=== PATIENT | male | born 1955 ===

== ENCOUNTER 2017-05-26 16:26 | Inpatient (IN) | payer MEDICAID, OTHER ==
[2017-05-26] MEDS ORDERED: Sodium Chloride 0.9% 2,000 ML IV STA (17:20)
[2017-05-26] MEDS ORDERED: Morphine 4 MG/ML VIAL IVP STA (17:22)
--- NOTE | 2017-05-26 17:22 | ED PDOC ---
HPI: Abdomen Time Seen by Provider: 05/26/17 17:21 Chief Complaint (Nursing): Abdominal Pain Chief Complaint (Provider): ABDOMINAL PAIN History Per: Patient (61 Y/O MALE RECENT IMMIGRATION FROM [place] HERE WITH ABDOMINAL PAIN INTERMITTENT IN PAST HERE CONTINUOUS SINCE LAST NIGHT 2AM. NOTE PAIN OCCURRED SUDDENLY AND ASSOCIATED WITH VOMITING. DENIES ANY DIARRHEA/FEVERS /CHILLS. NO H/O ABD SX.) Past Medical History Reviewed: Historical Data, Nursing Documentation, Vital Signs Vital Signs: Last Vital Signs Temp 98.2 F 05/26/17 16:36 Pulse 63 05/26/17 17:47 Resp 18 05/26/17 16:36 BP 155/84 H 05/26/17 16:36 Pulse Ox 97 05/26/17 19:32 - Surgical History Surgical History: No Surg Hx - Family History Family History: States: No Known Family Hx - Social History Current smoker - smoking cessation education provided: No Ex-Smoker (has not smoked in the last 12 months): No Alcohol: None Drugs: Denies - Immunization History Hx Tetanus Toxoid Vaccination: No Hx Influenza Vaccination: No Hx Pneumococcal Vaccination: No - Allergies Allergies/Adverse Reactions: Allergies Allergy/AdvReac Type Severity Reaction Status Date / Time No Known Allergies Allergy Verified 05/26/17 17:01 Review of Systems ROS Statement: Except As Marked, All Systems Reviewed And Found Negative Gastrointestinal: Positive for: Vomiting, Abdominal Pain Physical Exam - Reviewed Nursing Documentation Reviewed: Yes Vital Signs Reviewed: Yes - Physical Exam Appears: Positive for: Well, Non-toxic, No Acute Distress Head Exam: Positive for: ATRAUMATIC, NORMAL INSPECTION, NORMOCEPHALIC Skin: Positive for: Normal Color, Warm, DRY Eye Exam: Positive for: EOMI, Normal appearance, PERRL ENT: Positive for: Normal ENT Inspection Neck: Positive for: Normal, Painless ROM Cardiovascular/Chest: Positive for: Regular Rate, Rhythm Respiratory: Positive for: CNT, Normal Breath Sounds Gastrointestinal/Abdominal: Positive for: Normal Exam, Bowel Sounds, Soft, Tenderness (EPIGASTRIC/RUQ TENDERNESS.) Back: Positive for: Normal Inspection Extremity: Positive for: Normal ROM Neurologic/Psych: Positive for: Alert, Oriented - Laboratory Results Result Diagrams: 05/26/17 17:52 05/26/17 17:52 - ECG O2 Sat by Pulse Oximetry: 97 - Progress ED Course And Treament: NS 1 LITER 500 ML PER HOUR X 2 LITERS PEPCID 20 MG IV X 1 DOSE ZOFRAN 4 MG ODT MORPHINE 4 MG IV X 1 DOSE WBC 19 ELEVATED US GALLBLADDER: IMPRESSION: 1. Hepatic steatosis, mild hepatomegaly 2. Multiple gallstones Thank you for allowing us to participate in the care of your patient. Dictated and Authenticated by: Axel Dumont MD PATIENT RE-EXAMINED AT 18:36PM. MODERATE PERSISTENT PAIN EPIGASTRIC/RUQ REGION. BC X 2; VENOUS BLOOD GAS; ZOSYN 3.375GM ORDERED FOR PRESUMPTIVE CHOLECYSTITIS. DILAUDID 1 MG IVX 1 DOSE FOR PAIN MANAGMENT; CT ABD/PELVIS ORDERED. SURG RESIDENT PAGED 18:37PM D/W DR. COX 18:56PM D/W SURG RESIDENT 19:03PM d/w dr ochoa hospitalist. Disposition - Clinical Impression Clinical Impression: RUQ abdominal pain, Gallstone, Leukocytosis - Patient ED Disposition Is Patient to be Admitted: Yes - Disposition Disposition Time: 19:30 Condition: FAIR Forms: [facility] (Mauritanian)
[2017-05-26] MEDS ORDERED: Morphine 4 MG/ML VIAL ONE (17:34)
[2017-05-26 17:48] LABS: URINE AMORPHOUS SEDIMENT RARE /ul (<OCC); URINE BILIRUBIN NEGATIVE (NEGATIVE); URINE BLOOD SMALL (NEGATIVE); URINE CLARITY SLIGHTY-CLOUDY (Clear); URINE COLOR YELLOW (YELLOW); URINE GLUCOSE (UA) 50 mg/dL (Normal); URINE LEUKOCYTE ESTERASE NEG Leu/uL (Negative); URINE PROTEIN 30 mg/dL (NEGATIVE); URINE UROBILINOGEN 0.2-1.0 mg/dL (0.2-1.0)
[2017-05-26 17:56] LABS: BASO # 0.1 K/uL (0.0-0.2); BASO % 0.4 % (0.0-2.0); HEMOGLOBIN 14.6 g/dL (12.0-18.0); LYMPH # 1.3 K/uL (1.0-4.3); LYMPH % 6.8 % (20.0-40.0); MEAN CELL VOLUME 91.6 fl (80.0-94.0); MEAN CORPUSCULAR HEMOGLOBIN 31.6 pg (27.0-31.0); MEAN CORPUSCULAR HGB CONC 34.5 g/dL (33.0-37.0); MEAN PLATELET VOLUME 7.9 fl (7.2-11.7); MONO # 0.6 K/uL (0.0-0.8); MONO % 3.1 % (0.0-10.0); NEUT # 17.6 K/uL (1.8-7.0); NEUT % 89.7 % (50.0-75.0); PLATELET COUNT 356 K/uL (130-400); RBC 4.61 Mil/uL (4.40-5.90); RED CELL DISTRIBUTION WIDTH 13.8 % (11.5-14.5); WHITE BLOOD COUNT 19.6 K/uL (4.8-10.8)
[2017-05-26 18:25] LABS: CALCIUM 9.3 mg/dL (8.4-10.2); GFR AFRICAN-AMERICAN > 60; GFR NON-AFRICAN AMERICAN > 60; LIPASE 75 U/L (23-300)
[2017-05-26] MEDS ORDERED: Piperacillin/Tazobact 3.375 GM in Sodium Chloride 0.9% 100 ML IVPB STA (18:31)
[2017-05-26] MEDS ORDERED: Piperacillin/Tazobact 3.375 gm Inj IVPB ONE (18:36)
[2017-05-26 18:45] LABS: ALB/GLOB RATIO 1.1 (1.0-2.1); ALBUMIN 4.7 g/dL (3.5-5.0); ALT/SGPT 7 U/L (21-72); AST/SGOT 68 U/L (17-59); BLOOD UREA NITROGEN 11 mg/dl (9-20)
[2017-05-26 19:11] LABS: VENOUS BLOOD GAS BASE EXCESS -3.5 mmol/L (0.0-2.0); VENOUS BLOOD GAS PCO2 44 mmHg (40-60); VENOUS BLOOD GAS PO2 23 mm/Hg (30-55); VENOUS BLOOD PH 7.32 (7.32-7.43)
[2017-05-26] MEDS ORDERED: Iohexol 300 100 ML IJ ONE (19:39)
[2017-05-26] MEDS ORDERED: Sodium Chloride 0.9% 100 ML ONE (19:39)
--- NOTE | 2017-05-26 19:47 | CP.PCM.HP ---
History of Present Illness - History of Present Illness History of Present Illness: PMD: None Chief complaint: Abdominal pain The patient was seen and examined in the ED HPI: This is a 61 years male recently emigrated from [place] , with no significant past medical hx, comes 12 - 14 hours of continuous, sharp epigastric pain which now includes the periumbilical region, no radiation to back, chest nor pelvic region. The pain is associated with nausea, vomiting of bilious fluid. Not relieved with home meds and zantac. No hx of previous Abdominal pain, no fever, chills, diarrhea, dysuria. He does refer urinary frequency. The Pain was relieved after the second dose of Analgesic in the ED. PMH: Denies PSH: No Surg Hx SH: No illegal drug use; No Alcohol; never smoked; lives with family FH: States: No Known Family Hx Allergies: NKDA Medication: Denies Present on Admission - Present on Admission Any Indicators Present on Admission: No History of DVT/PE: No History of Uncontrolled Diabetes: No Urinary Catheter: No Decubitus Ulcer Present: No Review of Systems - Constitutional Constitutional: Anorexia. absent: Chills, Fever, Headache - EENT Eyes: Requires Corrective Lenses. absent: Floaters, Photophobia, Sees Flashes Ears: absent: Decreased Hearing, Ear Discharge, Ear Pain, Tinnitus Nose/Mouth/Throat: absent: Epistaxis, Nasal Congestion, Nasal Discharge - Cardiovascular Cardiovascular: absent: Chest Pain, Dyspnea, Edema - Respiratory Respiratory: absent: Cough, Dyspnea, Wheezing, Stridor, Chest Congestion - Gastrointestinal Gastrointestinal: Abdominal Pain, Constipation, Nausea, Vomiting. absent: Diarrhea Additional comments: Epigastric and periumbilical pain. - Genitourinary Genitourinary: Urinary Frequency. absent: Dysuria, Flank Pain, Hematuria - Musculoskeletal Musculoskeletal: absent: Arthralgias, Muscle Weakness, Myalgias - Integumentary Integumentary: absent: Pruritus, Rash, Skin Ulcer, Sores, Striae, Swelling - Neurological Neurological: Dizziness. absent: Confusion, Focal Weakness, Headaches, Weakness - Psychiatric Psychiatric: absent: Anxiety, Depression, Panic Attacks - Endocrine Endocrine: absent: Palpitations, Polydipsia, Polyphagia, Polyuria - Hematologic/Lymphatic Hematologic: absent: Easy Bleeding, Easy Bruising Past Patient History - Past Medical History & Family History Past Medical History?: No - Past Social History Smoking Status: Never Smoked Chewing Tobacco Use: No Cigar Use: No Alcohol: None Drugs: Denies Home Situation {Lives}: With Family - CARDIAC Hx Cardiac Disorders: No - PULMONARY Hx Respiratory Disorders: No - NEUROLOGICAL Hx Neurological Disorder: No - HEENT Hx HEENT Problems: No - RENAL Hx Chronic Kidney Disease: No - ENDOCRINE/METABOLIC Hx Endocrine Disorders: No - HEMATOLOGICAL/ONCOLOGICAL Hx Blood Disorders: No - INTEGUMENTARY Hx Dermatological Problems: No - MUSCULOSKELETAL/RHEUMATOLOGICAL Hx Musculoskeletal Disorders: No - GASTROINTESTINAL Hx Gastrointestinal Disorders: No Hx Hemorrhoids: No - PSYCHIATRIC Hx Psychophysiologic Disorder: No Hx Substance Use: No - SURGICAL HISTORY Hx Surgeries: No - ANESTHESIA Hx Anesthesia: No Hx Anesthesia Reactions: No Hx Malignant Hyperthermia: No Meds Allergies/Adverse Reactions: Allergies Allergy/AdvReac Type Severity Reaction Status Date / Time No Known Allergies Allergy Verified 05/26/17 17:01 Physical Exam - Constitutional Appears: No Acute Distress - Head Exam Head Exam: ATRAUMATIC, NORMAL INSPECTION, NORMOCEPHALIC - Eye Exam Eye Exam: EOMI, Normal appearance Pupil Exam: NORMAL ACCOMODATION, PERRL - ENT Exam ENT Exam: Mucous Membranes Moist, Normal Exam, Normal External Ear Exam, Normal Oropharynx - Neck Exam Neck exam: Positive for: Full Rom, Normal Inspection. Negative for: Lymphadenopathy, Tenderness - Respiratory Exam Respiratory Exam: Clear to Auscultation Bilateral. absent: Rales, Rhonchi, Wheezes, Stridor - Cardiovascular Exam Cardiovascular Exam: REGULAR RHYTHM, RRR. absent: Gallop, +S1, +S2 - GI/Abdominal Exam Additional comments: Flat, soft, decreased bowel sound, pain on deep palpitation at the epigastrium ans RUQ, No rebound, no guarding - Rectal Exam Rectal Exam: Deferred - Extremities Exam Extremities exam: Positive for: full ROM, normal inspection. Negative for: calf tenderness, pedal edema - Back Exam Back exam: NORMAL INSPECTION. absent: CVA tenderness (L), CVA tenderness (R) - Neurological Exam Neurological exam: Alert, CN II-XII Intact, Oriented x3, Reflexes Normal - Psychiatric Exam Psychiatric exam: Normal Affect, Normal Mood - Skin Skin Exam: Dry, Intact, Normal Color, Warm Results - Vital Signs Recent Vital Signs: Last Vital Signs Temp 98.2 F 05/26/17 16:36 Pulse 63 05/26/17 17:47 Resp 18 05/26/17 16:36 BP 155/84 H 05/26/17 16:36 Pulse Ox 97 05/26/17 19:45 - Labs Result Diagrams: 05/26/17 17:52 05/26/17 17:52 Labs: Laboratory Results - last 24 hr 05/26/17 05/26/17 05/26/17 17:25 17:52 17:52 WBC 19.6 H RBC 4.61 Hgb 14.6 Hct 42.3 MCV 91.6 MCH 31.6 H MCHC 34.5 RDW 13.8 Plt Count 356 MPV 7.9 Neut % (Auto) 89.7 H Lymph % (Auto) 6.8 L [place] % (Auto) 3.1 Eos % (Auto) 0.0 Baso % (Auto) 0.4 Neut # (Auto) 17.6 H Lymph # (Auto) 1.3 [place] # (Auto) 0.6 Eos # (Auto) 0.0 Baso # (Auto) 0.1 pO2 VBG pH VBG pCO2 VBG HCO3 VBG Total CO2 VBG O2 Sat (Calc) VBG Base Excess VBG Potassium Glucose Lactate FiO2 Sodium 137 Potassium 4.5 Chloride 99 Carbon Dioxide 22 Anion Gap 21 H BUN 11 Creatinine 0.5 L Est GFR ( Amer) > 60 Est GFR (Non-Af Amer) > 60 Random Glucose 136 H Calcium 9.3 Total Bilirubin 1.3 AST 68 H ALT 7 L Alkaline Phosphatase 147 H Troponin I 0.0150 Total Protein 9.0 H Albumin 4.7 Globulin 4.3 H Albumin/Globulin Ratio 1.1 Lipase 75 Venous Blood Potassium Urine Color Yellow Urine Clarity Slighty-cloudy Urine pH 6.0 Ur Specific [place] 1.031 H Urine Protein 30 Urine Glucose (UA) 50 Urine Ketones Negative Urine Blood Small Urine Nitrate Negative Urine Bilirubin Negative Urine Urobilinogen 0.2-1.0 Ur Leukocyte Esterase Neg Urine RBC (Auto) 5 H Urine Microscopic WBC 1 Amorphous Sediment Rare H 05/26/17 19:00 WBC RBC Hgb Hct MCV MCH MCHC RDW Plt Count MPV Neut % (Auto) Lymph % (Auto) [place] % (Auto) Eos % (Auto) Baso % (Auto) Neut # (Auto) Lymph # (Auto) [place] # (Auto) Eos # (Auto) Baso # (Auto) pO2 23 L VBG pH 7.32 VBG pCO2 44 VBG HCO3 20.5 VBG Total CO2 24.1 VBG O2 Sat (Calc) 49.0 VBG Base Excess -3.5 L VBG Potassium 3.5 L Glucose 131 H Lactate 1.9 FiO2 21.0 Sodium 133.0 Potassium Chloride 102.0 Carbon Dioxide Anion Gap BUN Creatinine Est GFR ( Amer) Est GFR (Non-Af Amer) Random Glucose Calcium Total Bilirubin AST ALT Alkaline Phosphatase Troponin I Total Protein Albumin Globulin Albumin/Globulin Ratio Lipase Venous Blood Potassium 3.5 L Urine Color Urine Clarity Urine pH Ur Specific [place] Urine Protein Urine Glucose (UA) Urine Ketones Urine Blood Urine Nitrate Urine Bilirubin Urine Urobilinogen Ur Leukocyte Esterase Urine RBC (Auto) Urine Microscopic WBC Amorphous Sediment - Impressions Impression: NSR 63/min No sign of ischemia - Imaging and Cardiology US - abdomen Status: Report reviewed by me Additional comment: EXAM: US Abdomen Limited, Right Upper Quadrant FINDINGS: Liver: Increased echogenicity is seen consistent steatosis. No mass. No intrahepatic bile duct dilation. Liver span 17.1 cm finding corresponds to mild hepatomegaly Gallbladder: Multiple gallstones present . Gall bladder wall measures 2 mm Common bile duct: Unremarkable as visualized. No stones. 5 mm Pancreas: Unremarkable as visualized. Right kidney: Unremarkable. No stones. No solid mass. No hydronephrosis. The RIGHT kidney measures 10.7 cm x 4.6 x 5 cm IMPRESSION: 1. Hepatic steatosis, mild hepatomegaly 2. Multiple gallstones CT scan - abdomen Status: Report reviewed by me Additional comment: EXAM: CT Abdomen And Pelvis With Intravenous Contrast EXAM DATE/TIME: 05/26/2017 FINDINGS: Lower thorax: Mild bilateral lower lobe atelectasis and/or parenchymal scarring. ABDOMEN: Liver: Mild, diffuse fatty infiltration of the liver as was also mentioned in the comparison ultrasound report. No hepatomegaly. Gallbladder and bile ducts: The gallbladder is moderately distended. Mild fat stranding around the gallbladder. The multiple gallstones mentioned in the comparison ultrasound report are not radiopaque and thus are not visualized on this examination. The common bile duct measures 6 mm in diameter which is at the upper limit of normal. Pancreas: Normal appearance. No peripancreatic fat stranding or fluid. No pancreatic ductal dilation. Spleen: Normal appearance. Adrenals: Normal appearance. Kidneys and ureters: Normal appearance. Stomach and bowel: There is a single mildly dilated loop of small bowel in the anterior mid left abdomen. No other evident acute abnormality of the small bowel. Moderate amount of stool in the colon. Mild colonic diverticulosis without evidence of acute diverticulitis. Appendix: The proximal appendix is filled with air and fecal like material and is dilated up to 12 mm in diameter. The appendix gradually tapers in caliber distally, measuring 5 mm in diameter near the appendiceal tip. No periappendiceal inflammatory changes. PELVIS: Bladder: The bladder is moderately distended but otherwise normal in appearance. Reproductive: Mildly enlarged prostate gland. ABDOMEN and PELVIS: Intraperitoneal space: No free intraperitoneal fluid or air. Bones/joints: No acute findings. Soft tissues: Small, fat-containing left inguinal hernia with no evident associated complications. Vasculature: No acute findings. No abdominal aortic aneurysm. Lymph nodes: No enlarged abdominal or pelvic lymph nodes by CT criteria. IMPRESSION: 1. There is mild fat stranding around the gallbladder which is moderately distended. In conjunction with the gallstones seen on the comparison ultrasound, these findings are suspicious for acute cholecystitis. If clinically warranted, further evaluation could be obtained with a nuclear medicine HIDA scan. 2. The proximal appendix is dilated up to 12 mm in diameter but is filled with air and fecal like material. The distal appendix is normal in caliber. No periappendiceal inflammatory changes. These findings are equivocal for acute appendicitis as this appearance could be seen with a normal appendix or with early acute appendicitis. 3. A single mildly dilated loop of small bowel in the anterior mid left abdomen may represent peristalsis. A developing small bowel obstruction is less likely but cannot be excluded. 4. Mild, diffuse fatty infiltration of the liver. No hepatomegaly. 5. Non-acute findings as described above. Assessment & Plan - Assessment and Plan (Free Text) Assessment: #. Acute Choldcystitis #. Cholelithiasis #. Leukocytosis Plan: 61 years male comes 12 - 14 hours of continuous, sharp epigastric pain which now includes the periumbilical region, no radiation to back, chest nor pelvic region, associated with nausea, vomiting of bilious fluid. No hx of previous Abdominal pain, no fever, chills, diarrhea, dysuria. #. Acute Choldcystitis with Cholelithiasis and abdominal pain. CT Abdomen IMPRESSION: 1. There is mild fat stranding around the gallbladder which is moderately distended. In conjunction with the gallstones seen on the comparison ultrasound, these findings are suspicious for acute cholecystitis. - Consult Dr Cheng Surgery - NPO - Pain management with Morphine IVP - Zosyn IVPB Q6H - Zofran for nausea and vomits - IV fluids - No Obvious need for MRCP #. Leukocytosis due to the Cholecystitis - Follow WBC #. Stress Ulcer Prophylaxis with Pepcid #. DVT prophylaxis with SCD #. Code Status: Full With no cardiac nor pulmonary hx , this patient has mild to moderate cardiac risk for surgery. He is medically cleared for surgery with generalized anesthesia. - Date & Time Date: 05/26/17 Time: 19:47
[2017-05-26 19:54] LABS: LYMPHOCYTE 3 % (20-50); MONOCYTE 3 % (0-10); NEUTROPHIL 91 % (42-75); PLATELET ESTIMATE NORMAL (NORMAL); REACTIVE LYMPHOCYTES 3 % (0-0); TOTAL CELLS COUNTED 100
[2017-05-26 19:55] LABS: HYPOCHROMIC SLIGHT
--- NOTE | 2017-05-26 20:20 | CP.PCM.CON ---
History of Present Illness - History of Present Illness History of Present Illness: SURGERY CONSULT NOTE FOR DR. 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 Patient has never had this type of pain before. He recently travelled to [place]. Pain is associated with nausea and vomiting. He has bilious emesis. He denies fevers, chill or change in bowel function. Although pain is mostly in the epigastric region he does have mild tenderness diffusely. PMH: denies PSH: denies Social: denies tobacco, alcohol and illicit drugs Allergies: denies Past Patient History - Past Social History Alcohol: None Drugs: Denies - PSYCHIATRIC Hx Substance Use: No - SURGICAL HISTORY Hx Surgeries: No - ANESTHESIA Hx Anesthesia: No Hx Anesthesia Reactions: No Hx Malignant Hyperthermia: No Meds Allergies/Adverse Reactions: Allergies Allergy/AdvReac Type Severity Reaction Status Date / Time No Known Allergies Allergy Verified 05/26/17 17:01 Physical Exam - Constitutional Appears: Well, Non-toxic, No Acute Distress - ENT Exam ENT Exam: Mucous Membranes Moist - Respiratory Exam Respiratory Exam: Clear to Auscultation Bilateral, NORMAL BREATHING PATTERN - Cardiovascular Exam Cardiovascular Exam: REGULAR RHYTHM, +S1, +S2 - GI/Abdominal Exam GI & Abdominal Exam: Firm, Tenderness (diffusely tender). absent: Distended, Guarding, Rebound, Rigid, Soft - Extremities Exam Extremities exam: Negative for: pedal edema, tenderness - Neurological Exam Neurological exam: Alert, Oriented x3 - Psychiatric Exam Psychiatric exam: Normal Affect, Normal Mood - Skin Skin Exam: Dry, Intact, Normal Color, Warm Results - Vital Signs Recent Vital Signs: Last Vital Signs Temp 98.2 F 05/26/17 16:36 Pulse 63 05/26/17 17:47 Resp 18 05/26/17 16:36 BP 155/84 H 05/26/17 16:36 Pulse Ox 97 05/26/17 19:45 - Labs Result Diagrams: 05/26/17 17:52 05/26/17 17:52 Labs: Laboratory Results - last 24 hr 05/26/17 05/26/17 05/26/17 17:25 17:52 17:52 WBC 19.6 H RBC 4.61 Hgb 14.6 Hct 42.3 MCV 91.6 MCH 31.6 H MCHC 34.5 RDW 13.8 Plt Count 356 MPV 7.9 Neut % (Auto) 89.7 H Lymph % (Auto) 6.8 L [place] % (Auto) 3.1 Eos % (Auto) 0.0 Baso % (Auto) 0.4 Neut # (Auto) 17.6 H Lymph # (Auto) 1.3 [place] # (Auto) 0.6 Eos # (Auto) 0.0 Baso # (Auto) 0.1 Neutrophils % (Manual) 91 H Lymphocytes % (Manual) 3 L Reactive Lymphs % 3 H Monocytes % (Manual) 3 Platelet Estimate Normal Hypochromasia (manual) Slight Macrocytosis (manual) Slight pO2 VBG pH VBG pCO2 VBG HCO3 VBG Total CO2 VBG O2 Sat (Calc) VBG Base Excess VBG Potassium Glucose Lactate FiO2 Sodium 137 Potassium 4.5 Chloride 99 Carbon Dioxide 22 Anion Gap 21 H BUN 11 Creatinine 0.5 L Est GFR ( Amer) > 60 Est GFR (Non-Af Amer) > 60 Random Glucose 136 H Calcium 9.3 Total Bilirubin 1.3 AST 68 H ALT 7 L Alkaline Phosphatase 147 H Troponin I 0.0150 Total Protein 9.0 H Albumin 4.7 Globulin 4.3 H Albumin/Globulin Ratio 1.1 Lipase 75 Venous Blood Potassium Urine Color Yellow Urine Clarity Slighty-cloudy Urine pH 6.0 Ur Specific [place] 1.031 H Urine Protein 30 Urine Glucose (UA) 50 Urine Ketones Negative Urine Blood Small Urine Nitrate Negative Urine Bilirubin Negative Urine Urobilinogen 0.2-1.0 Ur Leukocyte Esterase Neg Urine RBC (Auto) 5 H Urine Microscopic WBC 1 Amorphous Sediment Rare H 05/26/17 19:00 WBC RBC Hgb Hct MCV MCH MCHC RDW Plt Count MPV Neut % (Auto) Lymph % (Auto) [place] % (Auto) Eos % (Auto) Baso % (Auto) Neut # (Auto) Lymph # (Auto) [place] # (Auto) Eos # (Auto) Baso # (Auto) Neutrophils % (Manual) Lymphocytes % (Manual) Reactive Lymphs % Monocytes % (Manual) Platelet Estimate Hypochromasia (manual) Macrocytosis (manual) pO2 23 L VBG pH 7.32 VBG pCO2 44 VBG HCO3 20.5 VBG Total CO2 24.1 VBG O2 Sat (Calc) 49.0 VBG Base Excess -3.5 L VBG Potassium 3.5 L Glucose 131 H Lactate 1.9 FiO2 21.0 Sodium 133.0 Potassium Chloride 102.0 Carbon Dioxide Anion Gap BUN Creatinine Est GFR ( Amer) Est GFR (Non-Af Amer) Random Glucose Calcium Total Bilirubin AST ALT Alkaline Phosphatase Troponin I Total Protein Albumin Globulin Albumin/Globulin Ratio Lipase Venous Blood Potassium 3.5 L Urine Color Urine Clarity Urine pH Ur Specific [place] Urine Protein Urine Glucose (UA) Urine Ketones Urine Blood Urine Nitrate Urine Bilirubin Urine Urobilinogen Ur Leukocyte Esterase Urine RBC (Auto) Urine Microscopic WBC Amorphous Sediment Assessment & Plan - Assessment and Plan (Free Text) Assessment: 61F with chole[address]: inflamed GB and dilated appendix with air/fecal material in lumen Plan: - NPO, IVF, abx - Pain control - anti-emetics Further recs discuss with Dr. Prosper Rutledge, PGY2
[2017-05-26] MEDS ORDERED: Morphine 4 MG/ML VIAL IVP PRN (20:33)
[2017-05-27] MEDS ORDERED: Piperacillin/Tazobact 3.375 GM in Sodium Chloride 0.9% 100 ML IVPB SCH (04:00)
[2017-05-27] MEDS: Piperacillin/Tazobact 3.375 GM in Sodium Chloride 0.9% 100 ML IVPB SCH ×4 (04:09→21:41)
[2017-05-27] MEDS: Morphine 4 MG/ML VIAL IVP PRN (06:09)
[2017-05-27] MEDS: Sodium Chloride 0.9% 1,000 ML IV SCH ×2 (06:54→17:56)
[2017-05-27 06:59] LABS: BASO # 0.1 K/uL (0.0-0.2); BASO % 0.4 % (0.0-2.0); EOS % 0.2 % (0.0-4.0); LYMPH # 1.2 K/uL (1.0-4.3); LYMPH % 6.4 % (20.0-40.0); MEAN CELL VOLUME 92.2 fl (80.0-94.0); MEAN CORPUSCULAR HEMOGLOBIN 30.9 pg (27.0-31.0); MEAN CORPUSCULAR HGB CONC 33.5 g/dL (33.0-37.0); MEAN PLATELET VOLUME 7.8 fl (7.2-11.7); MONO % 5.4 % (0.0-10.0); NEUT % 87.6 % (50.0-75.0); RBC 4.52 Mil/uL (4.40-5.90); RED CELL DISTRIBUTION WIDTH 13.7 % (11.5-14.5); WHITE BLOOD COUNT 18.3 K/uL (4.8-10.8)
[2017-05-27 07:12] LABS: ALB/GLOB RATIO 1.1 (1.0-2.1); ALBUMIN 4.1 g/dL (3.5-5.0); ALT/SGPT 160 U/L (21-72); AST/SGOT 153 U/L (17-59); BLOOD UREA NITROGEN 8 mg/dl (9-20); GFR AFRICAN-AMERICAN > 60; GFR NON-AFRICAN AMERICAN > 60
--- NOTE | 2017-05-27 11:29 | CT ---
EXAMINATION PERFORMED: CT ABDOMEN AND PELVIS. CLINICAL HISTORY: Evaluate for acute cholecystitis. COMPARISON EXAMINATIONS: May 26, 2017. Abdominal ultrasound. Summary of findings on the comparison examination: Multiple gallstones TECHNIQUE: 2.5 mm axial acquisition and display. Coronal and sagittal reconstructions. Coronal and sagittal reconstructed images. Contrast: 91 cc Omnipaque 300 poor Dose report (mGy-cm): 5238.12. All CT scans at this facility use one or more dose reduction techniques: Automated exposure control; mA/kv adjustment per patient size (including targeted exams where, for example, dose is matched to indication; for example head) or iterative reconstruction technique. FINDINGS: Lower thorax: No significant findings. Liver: Hepatic steatosis. No focal masses. No intrahepatic bile duct dilatation or perihepatic ascites. . Gallbladder: Unremarkable. Gallstones identified on recent ultrasound are not readily apparent on the current study. Pancreas: Unremarkable Spleen: Unremarkable Kidneys: No evidence of mass, calculus disease, hydronephrosis. Stomach small bowel and colon: Diverticulosis without an acute inflammatory component or other associated pathologic process. Appendix: No abnormalities to suggest acute appendicitis. No right lower quadrant inflammatory processes identified. Reproductive: Normal Peritoneal cavity: No significant fluid, drainable collection, free air. Lymphadenopathy: None Osseous structures: No acute findings. Other: None. IMPRESSION: No acute findings related to/accounting for the clinical presentation. Additional benign and/or incidental findings described above.
--- NOTE | 2017-05-27 11:53 | US ---
HISTORY: R/O BILIARY COLIC COMPARISON: None. TECHNIQUE: Sonographic evaluation of the right upper quadrant of the abdomen. FINDINGS: LIVER: Measures 17.2 cm in length. Normal echogenicity of the liver parenchyma. No mass. No intrahepatic bile duct dilatation. GALLBLADDER: Cholelithiasis. Negative study for gallbladder wall thickening, pericholecystic fluid, sonographic Pan's sign. COMMON BILE DUCT: Measures 5.1 mm. No stones. No dilatation. PANCREAS: Unremarkable as visualized. No mass. No ductal dilatation. RIGHT KIDNEY: Measures 4.6 x 10.7 cm in length. Normal echogenicity. No calculus, mass, or hydronephrosis. AORTA: No aneurysmal dilatation. IVC: Unremarkable. OTHER FINDINGS: None . IMPRESSION: Cholelithiasis. No sonographic evidence of acute cholecystitis. Concordant results (preliminary interpretation) provided by [facility]. Procedure Completed: 18:19 Preliminary ([facility]) Report: Dictated and Authenticated: 19:22 Final Interpretation: 10:52 May 27, 2017.
[2017-05-27] MEDS ORDERED: Gadodiamide 287 MG/ML VIAL (15ML) IV ONE (15:33)
[2017-05-27] MEDS ORDERED: Sodium Chloride 0.9% 100 ML ONE (15:34)
--- NOTE | 2017-05-27 15:46 | CP.PCM.CON ---
<Eliazar Ballard - Last Filed: 05/27/17 15:37> History of Present Illness - History of Present Illness History of Present Illness: PGY5 GI Fellow Consult Note Patient is a 61yo male with no significant PMHx who presented to the ED with one day of abdominal pain. Patient developed sudden onset severe epigastric pain around midnight on Saturday. Pain seemed to radiate to both flanks and was not relieved with OTC Zantac. He developed shaking chills, became nauseated, vomiting multiple times which prompted him to seek evaluation in the ED. He denies any history of medical issues or hospitalizations prior to this and specifically, has no history of gallstones or hepatobiliary disease. Currently, pain persists and he feels febrile. Symptoms have improved somewhat with analgesia. PMHx: Discussed with patient and he denies any past medical history PSHx: Discussed with patient and he denies any past surgical history FHx: Discussed with patient and he denies any significant family history Social: Denies tobacco, EtOH or illicit drug use Endo: Denies prior endoscopic evaluation 12 system ROS performed and negative except where stated above. Past Patient History - Past Medical History & Family History Past Medical History?: No - Past Social History Smoking Status: Never Smoked - CARDIAC Hx Cardiac Disorders: No - PULMONARY Hx Respiratory Disorders: No - NEUROLOGICAL Hx Neurological Disorder: No - HEENT Hx HEENT Problems: No - RENAL Hx Chronic Kidney Disease: No - ENDOCRINE/METABOLIC Hx Endocrine Disorders: No - HEMATOLOGICAL/ONCOLOGICAL Hx Blood Disorders: No - INTEGUMENTARY Hx Dermatological Problems: No - MUSCULOSKELETAL/RHEUMATOLOGICAL Hx Musculoskeletal Disorders: No Hx Falls: No - GASTROINTESTINAL Hx Gastrointestinal Disorders: No Hx Hemorrhoids: No - GENITOURINARY/GYNECOLOGICAL Hx Genitourinary Disorders: No - PSYCHIATRIC Hx Psychophysiologic Disorder: No Hx Substance Use: No - SURGICAL HISTORY Hx Surgeries: No - ANESTHESIA Hx Anesthesia: No Hx Anesthesia Reactions: No Hx Malignant Hyperthermia: No Has any member of the family had a problem w/ anesthesia?: No Meds Allergies/Adverse Reactions: Allergies Allergy/AdvReac Type Severity Reaction Status Date / Time No Known Allergies Allergy Verified 05/26/17 17:01 - Medications Medications: Current Medications Acetaminophen (Tylenol 325 Mg Supp) 325 mg MS Q6 PRN PRN Reason: Fever >100.4 F Last Admin: 05/27/17 09:45 Dose: 325 mg Famotidine (Pepcid) 20 mg IVP DAILY [facility] Last Admin: 05/27/17 09:52 Dose: 20 mg Sodium Chloride (Sodium Chloride 0.9%) 1,000 mls @ 100 mls/hr IV .Q10H [facility] Stop: 05/27/17 20:25 Last Admin: 05/27/17 06:54 Dose: Not Given Piperacillin Sod/Tazobactam (Sod 3.375 gm/ Sodium Chloride) 100 mls @ 100 mls/ hr IVPB Q6 TRACI PRN Reason: Protocol Last Admin: 05/27/17 09:54 Dose: 100 mls/hr Morphine Sulfate (Morphine) 4 mg IVP Q4 PRN PRN Reason: Pain, severe (8-10) Last Admin: 05/27/17 06:09 Dose: 4 mg Morphine Sulfate (Morphine) 2 mg IVP Q4 PRN PRN Reason: Pain, moderate (4-7) Ondansetron HCl (Zofran Inj) 4 mg IVP Q4 PRN PRN Reason: Nausea/Vomiting Physical Exam - Constitutional Appears: Non-toxic, No Acute Distress - Eye Exam Eye Exam: EOMI, PERRL - ENT Exam ENT Exam: Mucous Membranes Moist - Respiratory Exam Respiratory Exam: Clear to Auscultation Bilateral. absent: Rales, Rhonchi, Wheezes - Cardiovascular Exam Cardiovascular Exam: RRR, +S1, +S2 - GI/Abdominal Exam GI & Abdominal Exam: Normal Bowel Sounds, Soft, Tenderness (epigastric, RUQ with +Pan sign). absent: Distended, Firm, Guarding, Organomegaly, Rigid - Extremities Exam Extremities exam: Positive for: normal inspection. Negative for: pedal edema - Neurological Exam Neurological exam: Alert, Oriented x3 - Psychiatric Exam Psychiatric exam: Normal Affect, Normal Mood - Skin Skin Exam: Dry, Warm Results - Vital Signs Recent Vital Signs: Last Vital Signs Temp 100.5 F H 05/27/17 10:45 Pulse 114 H 05/27/17 08:18 Resp 19 05/27/17 08:18 BP 109/69 05/27/17 08:18 Pulse Ox 94 L 05/27/17 08:18 - Labs Result Diagrams: 05/27/17 05:30 05/27/17 05:30 Labs: Laboratory Results - last 24 hr 05/26/17 05/26/1705/26/18 17:25 17:52 17:52 WBC 19.6 H RBC 4.61 Hgb 14.6 Hct 42.3 MCV 91.6 MCH 31.6 H MCHC 34.5 RDW 13.8 Plt Count 356 MPV 7.9 Neut % (Auto) 89.7 H Lymph % (Auto) 6.8 L Blanco % (Auto) 3.1 Eos % (Auto) 0.0 Baso % (Auto) 0.4 Neut # (Auto) 17.6 H Lymph # (Auto) 1.3 Blanco # (Auto) 0.6 Eos # (Auto) 0.0 Baso # (Auto) 0.1 Neutrophils % (Manual) 91 H Lymphocytes % (Manual) 3 L Reactive Lymphs % 3 H Monocytes % (Manual) 3 Platelet Estimate Normal Hypochromasia (manual) Slight Macrocytosis (manual) Slight pO2 VBG pH VBG pCO2 VBG HCO3 VBG Total CO2 VBG O2 Sat (Calc) VBG Base Excess VBG Potassium Glucose Lactate FiO2 Sodium 137 Potassium 4.5 Chloride 99 Carbon Dioxide 22 Anion Gap 21 H BUN 11 Creatinine 0.5 L Est GFR ( Amer) > 60 Est GFR (Non-Af Amer) > 60 Random Glucose 136 H Calcium 9.3 Total Bilirubin 1.3 AST 68 H ALT 7 L Alkaline Phosphatase 147 H Troponin I 0.0150 Total Protein 9.0 H Albumin 4.7 Globulin 4.3 H Albumin/Globulin Ratio 1.1 Lipase 75 Venous Blood Potassium Urine Color Yellow Urine Clarity Slighty-cloudy Urine pH 6.0 Ur Specific Lyford 1.031 H Urine Protein 30 Urine Glucose (UA) 50 Urine Ketones Negative Urine Blood Small Urine Nitrate Negative Urine Bilirubin Negative Urine Urobilinogen 0.2-1.0 Ur Leukocyte Esterase Neg Urine RBC (Auto) 5 H Urine Microscopic WBC 1 Amorphous Sediment Rare H 05/26/17 05/27/17 05/27/17 19:00 05:30 05:30 WBC 18.3 H RBC 4.52 Hgb 14.0 Hct 41.7 MCV 92.2 MCH 30.9 MCHC 33.5 RDW 13.7 Plt Count 345 MPV 7.8 Neut % (Auto) 87.6 H Lymph % (Auto) 6.4 L Blanco % (Auto) 5.4 Eos % (Auto) 0.2 Baso % (Auto) 0.4 Neut # (Auto) 16.0 H Lymph # (Auto) 1.2 Blanco # (Auto) 1.0 H Eos # (Auto) 0.0 Baso # (Auto) 0.1 Neutrophils % (Manual) Lymphocytes % (Manual) Reactive Lymphs % Monocytes % (Manual) Platelet Estimate Hypochromasia (manual) Macrocytosis (manual) pO2 23 L VBG pH 7.32 VBG pCO2 44 VBG HCO3 20.5 VBG Total CO2 24.1 VBG O2 Sat (Calc) 49.0 VBG Base Excess -3.5 L VBG Potassium 3.5 L Glucose 131 H Lactate 1.9 FiO2 21.0 Sodium 133.0 138 Potassium 4.3 Chloride 102.0 96 L Carbon Dioxide 25 Anion Gap 21 H BUN 8 L Creatinine 0.6 L Est GFR ( Amer) > 60 Est GFR (Non-Af Amer) > 60 Random Glucose 128 H Calcium 9.0 Total Bilirubin 1.7 H AST 153 H D ALT 160 H D Alkaline Phosphatase 159 H Troponin I Total Protein 8.0 Albumin 4.1 Globulin 3.8 Albumin/Globulin Ratio 1.1 Lipase Venous Blood Potassium 3.5 L Urine Color Urine Clarity Urine pH Ur Specific Lyford Urine Protein Urine Glucose (UA) Urine Ketones Urine Blood Urine Nitrate Urine Bilirubin Urine Urobilinogen Ur Leukocyte Esterase Urine RBC (Auto) Urine Microscopic WBC Amorphous Sediment Assessment & Plan - Assessment and Plan (Free Text) Assessment: Patient is a 61yo male with no significant PMHx who presented to the ED with one day of abdominal pain -Acute abdominal pain with concern for cholecystitis, choledocolithiasis -Elevated LFTs Plan: -U/S and CT A/P with IV contrast reviewed -Awaiting MRCP -NPO for now, OK to advance to clear liquids if no immediate intent for surgical intervention -Antiemetics/analgesia per primary service -Check Hepatitis serologies -Agree with broad spectrum antibiotic coverage - on Zosyn -Blood and urine cultures pending -Plan per findings - Date & Time Date: 05/27/17 Time: 13:15 <Catherine Damon - Last Filed: 05/27/17 16:43> Meds - Medications Medications: Current Medications Acetaminophen (Tylenol 325 Mg Supp) 325 mg MS Q6 PRN PRN Reason: Fever >100.4 F Last Admin: 05/27/17 09:45 Dose: 325 mg Famotidine (Pepcid) 20 mg IVP DAILY [facility] Last Admin: 05/27/17 09:52 Dose: 20 mg Sodium Chloride (Sodium Chloride 0.9%) 1,000 mls @ 100 mls/hr IV .Q10H [facility] Stop: 05/27/17 20:25 Last Admin: 05/27/17 06:54 Dose: Not Given Piperacillin Sod/Tazobactam (Sod 3.375 gm/ Sodium Chloride) 100 mls @ 100 mls/ hr IVPB Q6 TRACI PRN Reason: Protocol Last Admin: 05/27/17 09:54 Dose: 100 mls/hr Morphine Sulfate (Morphine) 4 mg IVP Q4 PRN PRN Reason: Pain, severe (8-10) Last Admin: 05/27/17 06:09 Dose: 4 mg Morphine Sulfate (Morphine) 2 mg IVP Q4 PRN PRN Reason: Pain, moderate (4-7) Ondansetron HCl (Zofran Inj) 4 mg IVP Q4 PRN PRN Reason: Nausea/Vomiting Results - Vital Signs Recent Vital Signs: Last Vital Signs Temp 99.8 F H 05/27/17 16:23 Pulse 117 H 05/27/17 16:23 Resp 20 05/27/17 16:23 BP 90/50 L 05/27/17 16:23 Pulse Ox 94 L 05/27/17 16:23 - Labs Result Diagrams: 05/27/17 05:30 05/27/17 05:30 Labs: Laboratory Results - last 24 hr 05/26/17 05/26/17 05/26/17 17:25 17:52 17:52 WBC 19.6 H RBC 4.61 Hgb 14.6 Hct 42.3 MCV 91.6 MCH 31.6 H MCHC 34.5 RDW 13.8 Plt Count 356 MPV 7.9 Neut % (Auto) 89.7 H Lymph % (Auto) 6.8 L Blanco % (Auto) 3.1 Eos % (Auto) 0.0 Baso % (Auto) 0.4 Neut # (Auto) 17.6 H Lymph # (Auto) 1.3 Blanco # (Auto) 0.6 Eos # (Auto) 0.0 Baso # (Auto) 0.1 Neutrophils % (Manual) 91 H Lymphocytes % (Manual) 3 L Reactive Lymphs % 3 H Monocytes % (Manual) 3 Platelet Estimate Normal Hypochromasia (manual) Slight Macrocytosis (manual) Slight pO2 VBG pH VBG pCO2 VBG HCO3 VBG Total CO2 VBG O2 Sat (Calc) VBG Base Excess VBG Potassium Glucose Lactate FiO2 Sodium 137 Potassium 4.5 Chloride 99 Carbon Dioxide 22 Anion Gap 21 H BUN 11 Creatinine 0.5 L Est GFR ( Amer) > 60 Est GFR (Non-Af Amer) > 60 Random Glucose 136 H Calcium 9.3 Total Bilirubin 1.3 AST 68 H ALT 7 L Alkaline Phosphatase 147 H Troponin I 0.0150 Total Protein 9.0 H Albumin 4.7 Globulin 4.3 H Albumin/Globulin Ratio 1.1 Lipase 75 Venous Blood Potassium Urine Color Yellow Urine Clarity Slighty-cloudy Urine pH 6.0 Ur Specific Lyford 1.031 H Urine Protein 30 Urine Glucose (UA) 50 Urine Ketones Negative Urine Blood Small Urine Nitrate Negative Urine Bilirubin Negative Urine Urobilinogen 0.2-1.0 Ur Leukocyte Esterase Neg Urine RBC (Auto) 5 H Urine Microscopic WBC 1 Amorphous Sediment Rare H 05/26/17 05/27/17 05/27/17 19:00 05:30 05:30 WBC 18.3 H RBC 4.52 Hgb 14.0 Hct 41.7 MCV 92.2 MCH 30.9 MCHC 33.5 RDW 13.7 Plt Count 345 MPV 7.8 Neut % (Auto) 87.6 H Lymph % (Auto) 6.4 L Blanco % (Auto) 5.4 Eos % (Auto) 0.2 Baso % (Auto) 0.4 Neut # (Auto) 16.0 H Lymph # (Auto) 1.2 Blanco # (Auto) 1.0 H Eos # (Auto) 0.0 Baso # (Auto) 0.1 Neutrophils % (Manual) Lymphocytes % (Manual) Reactive Lymphs % Monocytes % (Manual) Platelet Estimate Hypochromasia (manual) Macrocytosis (manual) pO2 23 L VBG pH 7.32 VBG pCO2 44 VBG HCO3 20.5 VBG Total CO2 24.1 VBG O2 Sat (Calc) 49.0 VBG Base Excess -3.5 L VBG Potassium 3.5 L Glucose 131 H Lactate 1.9 FiO2 21.0 Sodium 133.0 138 Potassium 4.3 Chloride 102.0 96 L Carbon Dioxide 25 Anion Gap 21 H BUN 8 L Creatinine 0.6 L Est GFR ( Amer) > 60 Est GFR (Non-Af Amer) > 60 Random Glucose 128 H Calcium 9.0 Total Bilirubin 1.7 H AST 153 H D ALT 160 H D Alkaline Phosphatase 159 H Troponin I Total Protein 8.0 Albumin 4.1 Globulin 3.8 Albumin/Globulin Ratio 1.1 Lipase Venous Blood Potassium 3.5 L Urine Color Urine Clarity Urine pH Ur Specific Lyford Urine Protein Urine Glucose (UA) Urine Ketones Urine Blood Urine Nitrate Urine Bilirubin Urine Urobilinogen Ur Leukocyte Esterase Urine RBC (Auto) Urine Microscopic WBC Amorphous Sediment Attending/Attestation - Attestation I have personally seen and examined this patient.: Yes I have fully participated in the care of the patient.: Yes I have reviewed all pertinent clinical information: Yes Notes (Text): 05/27/17 16:41 This is a 61 year old male with no significant PMHx who presented to the ED with one day of abdominal pain with concern for cholecystitis/ choledocolithiasis awaiting MRCP read. Clear liquid diet until further plan. Trend daily LFT and check Hepatitis serologies -Agree with broad spectrum antibiotic coverage - on Zosyn -Blood and urine cultures pending -Plan per findings
--- NOTE | 2017-05-27 17:41 | CP.PCM.PN ---
Subjective - Date & Time of Evaluation Date of Evaluation: 05/27/17 Time of Evaluation: 10:00 - Subjective Subjective: Patient seen and examined at bedside. Apperas diaphoretic and acutely ill. Complaining of right upper quadrant pain. Abdomen diffusely tender to palpation. Febrile today, although rest of vitals WNL. Objective - Vital Signs/Intake and Output Vital Signs (last 24 hours): Temp Pulse Resp BP Pulse Ox 99.9 F H 91 H 21 99/67 L 98 05/27/17 17:00 05/27/17 17:00 05/27/17 17:00 05/27/17 17:00 05/27/17 17:00 - Medications Medications: Current Medications Acetaminophen (Tylenol 325 Mg Supp) 325 mg PA Q6 PRN PRN Reason: Fever >100.4 F Last Admin: 05/27/17 09:45 Dose: 325 mg Famotidine (Pepcid) 20 mg IVP DAILY [facility] Last Admin: 05/27/17 09:52 Dose: 20 mg Sodium Chloride (Sodium Chloride 0.9%) 1,000 mls @ 100 mls/hr IV .Q10H [facility] Stop: 05/27/17 20:25 Last Admin: 05/27/17 06:54 Dose: Not Given Piperacillin Sod/Tazobactam (Sod 3.375 gm/ Sodium Chloride) 100 mls @ 100 mls/ hr IVPB Q6 TRACI PRN Reason: Protocol Last Admin: 05/27/17 09:54 Dose: 100 mls/hr Morphine Sulfate (Morphine) 4 mg IVP Q4 PRN PRN Reason: Pain, severe (8-10) Last Admin: 05/27/17 06:09 Dose: 4 mg Morphine Sulfate (Morphine) 2 mg IVP Q4 PRN PRN Reason: Pain, moderate (4-7) Ondansetron HCl (Zofran Inj) 4 mg IVP Q4 PRN PRN Reason: Nausea/Vomiting - Labs Labs: 05/27/17 05:30 05/27/17 05:30 - Additional Findings Additional findings: Physical exam: Constitutional- cooperative, awake, alert, appears ill Head- NCAT, PERRL Eye- PERRL, EOMI ENT- normal exam, MMM. Neck- normal inspection, supple, no JVD Respiratory- CTAB, no wheezes rales rhonchi Cardiovascular- RRR, +S1, +S2 no MRG GI/Abdominal- Hypoactive bowel sounds, + Guarding, + diffusely tender to palpation Skin- warm, diaphoretic Extremities Exam- normal capillary refill, normal inspection Neurological Exam- alert, awake, oriented Psych- normal mood, normal affect Assessment and Plan - Assessment and Plan (Free Text) Plan: Plan: This is a 61 year male comes 12 - 14 hours of continuous, sharp epigastric pain admitted on 05/26/2017 with acute cholecystitis; now with concern for choledocholithiasis / CBD obstruction with transaminitis and climibing total bilirubin 1) Acute Cholecystitis with Cholelithiasis, concern for choledocholithiasis and CBD obstruction CT Abdomen: There is mild fat stranding around the gallbladder which is moderately distended. In conjunction with the gallstones seen on the comparison ultrasound, these findings are suspicious for acutecholecystitis. - Full admission - Consult Dr Cheng Surgery- recommended MRCP and GI consultation - Dr. Damon on for GI; recommends MRCP which was performed, final report still pending. May need ERCP depending on MRCP results. - ABD US shows 0.5 mm CBD dilatation - NPO - Pain management with Morphine IVP - Zosyn IVPB Q6H - Zofran for nausea and vomiting - IV fluids 2). Leukocytosis due to the Cholecystitis - 19.6 -> 18.3 - Follow WBC 3). Stress Ulcer Prophylaxis with Pepcid 4). DVT prophylaxis with SCD 5). Code Status: Full With no cardiac nor pulmonary hx , this patient has mild to moderate cardiac risk for surgery. He is medically cleared for surgery with generalized anesthesia.
[2017-05-28] MEDS: Piperacillin/Tazobact 3.375 GM in Sodium Chloride 0.9% 100 ML IVPB SCH ×4 (04:11→22:12)
[2017-05-28 06:45] LABS: HEMOGLOBIN 13.4 g/dL (12.0-18.0); MEAN CELL VOLUME 92.4 fl (80.0-94.0); MEAN CORPUSCULAR HEMOGLOBIN 31.4 pg (27.0-31.0); RBC 4.25 Mil/uL (4.40-5.90); RED CELL DISTRIBUTION WIDTH 14.5 % (11.5-14.5); WHITE BLOOD COUNT 19.6 K/uL (4.8-10.8)
[2017-05-28 06:57] LABS: ALB/GLOB RATIO 0.9 (1.0-2.1); ALBUMIN 3.5 g/dL (3.5-5.0); ALT/SGPT 189 U/L (21-72); AST/SGOT 142 U/L (17-59); BLOOD UREA NITROGEN 23 mg/dl (9-20); CALCIUM 8.3 mg/dL (8.4-10.2); GFR AFRICAN-AMERICAN > 60; GFR NON-AFRICAN AMERICAN > 60
[2017-05-28] MEDS: Morphine 4 MG/ML VIAL IVP PRN ×2 (07:37→20:54)
[2017-05-28] MEDS ORDERED: Lactated Ringer's 500 ML IV SCH (08:00)
--- NOTE | 2017-05-28 08:10 | CP.PCM.PN ---
Subjective - Date & Time of Evaluation Date of Evaluation: 05/28/17 Time of Evaluation: 08:08 - Subjective Subjective: SURGERY NOTE FOR DR. COX 61M seen and examined at bedside. Patient continues to complain of pain in the right upper quadrant. Overnight patient developed fever of 102.3, was tachycardic 120 and hypotension in 92/54. Objective - Vital Signs/Intake and Output Vital Signs (last 24 hours): Temp Pulse Resp BP Pulse Ox 98.5 F 120 H 20 92/54 L 95 05/28/17 03:43 05/27/17 23:36 05/27/17 23:36 05/27/17 23:36 05/27/17 23:36 - Medications Medications: Current Medications Acetaminophen (Tylenol 325 Mg Supp) 325 mg MT Q6 PRN PRN Reason: Fever >100.4 F Last Admin: 05/28/17 00:52 Dose: 325 mg Famotidine (Pepcid) 20 mg IVP DAILY [facility] Last Admin: 05/27/17 09:52 Dose: 20 mg Piperacillin Sod/Tazobactam (Sod 3.375 gm/ Sodium Chloride) 100 mls @ 100 mls/ hr IVPB Q6 TRACI PRN Reason: Protocol Last Admin: 05/28/17 04:11 Dose: 100 mls/hr Lactated Ringer's (Lactated Ringer's 500ml) 500 mls @ 500 mls/hr IV .Q1H [facility] Stop: 05/28/17 08:59 Lactated Ringer's (Lactated Ringer's) 1,000 mls @ 125 mls/hr IV .Q8H [facility] Morphine Sulfate (Morphine) 4 mg IVP Q4 PRN PRN Reason: Pain, severe (8-10) Last Admin: 05/28/17 07:37 Dose: 4 mg Morphine Sulfate (Morphine) 2 mg IVP Q4 PRN PRN Reason: Pain, moderate (4-7) Ondansetron HCl (Zofran Inj) 4 mg IVP Q4 PRN PRN Reason: Nausea/Vomiting - Labs Labs: 05/28/17 05:30 05/28/17 05:30 - Constitutional Appears: Other (uncomfortable) - Respiratory Exam Respiratory Exam: Clear to Ausculation Bilateral, NORMAL BREATHING PATTERN - Cardiovascular Exam Cardiovascular Exam: REGULAR RHYTHM, +S1, +S2 - GI/Abdominal Exam GI & Abdominal Exam: Soft, Tenderness (moderate to severely tender in RUQ). absent: Distended, Firm, Guarding, Rigid, Rebound - Neurological Exam Neurological Exam: Alert, Awake - Psychiatric Exam Psychiatric exam: Normal Affect, Normal Mood - Skin Skin Exam: Dry, Intact, Warm Additional comments: mild jaundice Assessment and Plan - Assessment and Plan (Free Text) Assessment: 61M with acute cholecystitis, possible cholangitis MRCP: negative for choledocholithiais as per preliminary read, stone likely passed if so Plan: - NPO - IVFluids, Replace electrolytes - Possible ERCP per GI - Patient will need gallbladder removed further recs discuss with Dr. Prosper Rutledge, PGY2
[2017-05-28] MEDS: Lactated Ringer's 1,000 ML IV SCH ×2 (09:05→20:56)
--- NOTE | 2017-05-28 09:11 | CP.PCM.PN ---
Subjective - Date & Time of Evaluation Date of Evaluation: 05/28/17 Time of Evaluation: 09:11 - Subjective Subjective: +chills this AM febrile, tachycardic, hypotensive overnight responded to fluid bolus, discussed with GI, for ERCP this AM also discussed with Dr. Cheng, for likely cholecystectomy transferred to ICU Objective - Vital Signs/Intake and Output Vital Signs (last 24 hours): Temp Pulse Resp BP Pulse Ox 97.8 F 119 H 20 123/72 96 05/28/17 08:16 05/28/17 08:16 05/28/17 08:16 05/28/17 08:16 05/28/17 08:16 GEN: awake, alert, chills, appears to be in mild distress HEENT: NCAT, PERRL, EOMI HEART: RRR, S1, S2 no MRG LUNG: CTAB, no WRR ABD: soft, mild tender, nondistended, BSX4, no masses EXT: warm, well perfused SKIN: warm, dry NEURO: awake, alert PSYCH: normal mood and affect - Medications Medications: Current Medications Acetaminophen (Tylenol 325 Mg Supp) 325 mg PA Q6 PRN PRN Reason: Fever >100.4 F Last Admin: 05/28/17 00:52 Dose: 325 mg Famotidine (Pepcid) 20 mg IVP DAILY [facility] Last Admin: 05/27/17 09:52 Dose: 20 mg Piperacillin Sod/Tazobactam (Sod 3.375 gm/ Sodium Chloride) 100 mls @ 100 mls/ hr IVPB Q6 TRACI PRN Reason: Protocol Last Admin: 05/28/17 09:06 Dose: 100 mls/hr Lactated Ringer's (Lactated Ringer's) 1,000 mls @ 125 mls/hr IV .Q8H [facility] Last Admin: 05/28/17 09:05 Dose: 125 mls/hr Potassium Chloride (Potassium Chloride 20 Meq/100 Ml) 100 mls @ 50 mls/hr IVPB Q2H [facility] Stop: 05/28/17 12:59 Morphine Sulfate (Morphine) 4 mg IVP Q4 PRN PRN Reason: Pain, severe (8-10) Last Admin: 05/28/17 07:37 Dose: 4 mg Morphine Sulfate (Morphine) 2 mg IVP Q4 PRN PRN Reason: Pain, moderate (4-7) Ondansetron HCl (Zofran Inj) 4 mg IVP Q4 PRN PRN Reason: Nausea/Vomiting - Labs Labs: 05/28/17 05:30 05/28/17 05:30 Assessment and Plan - Assessment and Plan (Free Text) Plan: 61 year male comes 12 - 14 hours of continuous, sharp epigastric pain admitted on 05/26/2017 with acute cholecystitis; now with concern for choledocholithiasis / CBD obstruction with transaminitis and climibing total bilirubin 1) Acute Cholecystitis with Cholelithiasis, concern for choledocholithiasis and CBD obstruction CT Abdomen: There is mild fat stranding around the gallbladder which is moderately distended. In conjunction with the gallstones seen on the comparison ultrasound, these findings are suspicious for acute cholecystitis. - Full admission, transferred to ICU today for mild hypotension, tachycardia, chills. - Consult Dr Cheng Surgery- recommended MRCP and GI consultation - Dr. Damon on for GI; recommends MRCP +cholecystitis - discussed with GI, + stone in CBD - ERCP TODAY, and then possible cholecystectomy/cholecystostomy tube placement - ABD US showed 0.5 mm CBD dilatation - NPO - Pain management with Morphine IVP - Zosyn IVPB Q6H - Zofran for nausea and vomiting - IV fluids 2). Leukocytosis due to the Cholecystitis - WBC 19.6 - Follow WBC 3). Stress Ulcer Prophylaxis with Pepcid 4). DVT prophylaxis with SCD 5). Code Status: Full With no cardiac nor pulmonary hx , this patient has mild to moderate cardiac risk for surgery. He is medically cleared for surgery with generalized anesthesia.
[2017-05-28 10:03] LABS: INR 1.5 (0.9-1.2); PARTIAL THROMBOPLASTIN TIME 34.6 Seconds (25.6-37.1); PROTHROMBIN TIME 17.1 Seconds (9.8-13.1)
--- NOTE | 2017-05-28 10:46 | MRI ---
PROCEDURE: Magnetic Resonance Cholangiopancreatography HISTORY: COMPARISON: None available. TECHNIQUE: Multiplanar, multisequence MR images of the abdomen were obtained, including heavily T2 weighted MRCP images of the biliary system. Rotating maximum intensity projection images of the biliary system were generated. FINDINGS: MRCP: The common bile duct is of a normal caliber. No evidence of choledocholithiasis. No intrahepatic biliary ductal dilatation. LIVER: Unremarkable. GALLBLADDER: Cholelithiasis. Mural thickening. Pericholecystic edema and pericholecystic fluid. Findings concerning for acute cholecystitis. There is a calculus seen in the gallbladder neck/ cystic duct. SPLEEN: Unremarkable. PANCREAS: Unremarkable. ADRENALS: Unremarkable. KIDNEYS: Unremarkable. AORTA: No aneurysm. ASCITES: Trace ascites in the right pericolic gutter as well as fluid about the 2nd portion of the duodenum and about the gallbladder. OTHER FINDINGS: Please note that gadolinium administration demonstrates no enhancing hepatic or pancreatic mass. There is intense rapid enhancement of the gallbladder wall, consistent with an acute inflammatory process. IMPRESSION: Findings consistent with acute cholecystitis. No evidence of choledocholithiasis or biliary obstruction. Preliminary interpretation of this examination was reported by [facility] at 7:41 p.m. on 05/27/2017. There is concurrence of this report with the preliminary interpretation.
[2017-05-28] MEDS ORDERED: Glucagon Recombinant 1 mg Inj ONE (10:52)
[2017-05-28] MEDS ORDERED: Iohexol 240 (50 ml) ONE (10:53)
[2017-05-28] MEDS: Potassium Chloride 20 mEq 100 ML IVPB SCH ×2 (11:05→15:09)
[2017-05-28] MEDS ORDERED: Etomidate 20 mg/10ml Inj IV ONE (11:28)
[2017-05-28] MEDS ORDERED: EPINEPHrine 1 mg/ml (1:1000) Inj ONE ×2 (11:28→13:23)
[2017-05-28] MEDS ORDERED: Midazolam 2 MG/2 ML VIAL ONE (11:29)
[2017-05-28] MEDS ORDERED: Lidocaine PF 2% (5 ml) Inj (For Cardiac Arrhy) IV ONE (11:30)
[2017-05-28] MEDS ORDERED: Propofol 10 mg/ml Inj (20 ML) ONE (11:30)
[2017-05-28] MEDS ORDERED: Succinylcholine 200 mg/10 ml Inj IV ONE (11:30)
[2017-05-28] MEDS ORDERED: Sodium Chloride 0.9% 1,000 ML IV ONE ×2 (11:39→12:29)
[2017-05-28] MEDS ORDERED: Indomethacin 50 MG Suppository PR ONE ×3 (11:45→14:14)
--- NOTE | 2017-05-28 11:54 | CARD ---
APPROVED REPORT EKG Measurement Heart [id number] <Conclusion> Normal sinus rhythm Normal ECG
[2017-05-28] MEDS ORDERED: Potassium CL 10mEq/100ml 100 ML IVPB SCH (17:00)
--- NOTE | 2017-05-28 18:25 | RAD ---
PROCEDURE: Fluoroscopy up to 1 hr. HISTORY: ERCP COMPARISON: None TECHNIQUE: Standard protocol for this study/examination. FINDINGS: Submitted images from the current procedure: 4.0. IMPRESSION: Fluoroscopic assistance provided for ERCP.
[2017-05-29] MEDS: Lactated Ringer's 1,000 ML IV SCH ×3 (03:51→20:55)
[2017-05-29] MEDS: Piperacillin/Tazobact 3.375 GM in Sodium Chloride 0.9% 100 ML IVPB SCH ×5 (04:41→22:16)
[2017-05-29] MEDS: Morphine 4 MG/ML VIAL IVP PRN (04:42)
[2017-05-29 05:35] LABS: BASO # 0.1 K/uL (0.0-0.2); BASO % 0.5 % (0.0-2.0); EOS # 0.2 K/uL (0.0-0.7); EOS % 1.6 % (0.0-4.0); HEMOGLOBIN 11.2 g/dL (12.0-18.0); LYMPH # 1.3 K/uL (1.0-4.3); LYMPH % 8.7 % (20.0-40.0); MEAN CELL VOLUME 92.6 fl (80.0-94.0); MEAN CORPUSCULAR HEMOGLOBIN 31.1 pg (27.0-31.0); MEAN CORPUSCULAR HGB CONC 33.5 g/dL (33.0-37.0); MEAN PLATELET VOLUME 8.7 fl (7.2-11.7); MONO # 0.4 K/uL (0.0-0.8); MONO % 2.9 % (0.0-10.0); NEUT # 12.3 K/uL (1.8-7.0); NEUT % 86.3 % (50.0-75.0); RBC 3.62 Mil/uL (4.40-5.90); RED CELL DISTRIBUTION WIDTH 14.6 % (11.5-14.5); WHITE BLOOD COUNT 14.3 K/uL (4.8-10.8)
[2017-05-29 06:04] LABS: ALB/GLOB RATIO 0.8 (1.0-2.1); ALBUMIN 2.8 g/dL (3.5-5.0); ALT/SGPT 124 U/L (21-72); AST/SGOT 68 U/L (17-59); BLOOD UREA NITROGEN 24 mg/dl (9-20); CALCIUM 8.1 mg/dL (8.4-10.2); GFR AFRICAN-AMERICAN > 60; GFR NON-AFRICAN AMERICAN > 60
--- NOTE | 2017-05-29 06:35 | PN ---
CRITICAL CARE PROGRESS NOTE DATE: 05/28/2017 LOCATION: The patient is in ICU, bed 424. TIME SPENT: 40 minutes. SUBJECTIVE: The patient is seen and evaluated at the bedside. Events since admission reviewed. Past medical, surgical, and social history reviewed. A 61-year-old male with no significant medical history in the past, no alcohol dependence, nonsmoker, and presented to emergency room on 05/26/2017 complaining of an acute abdominal pain, more so in the epigastric area with radiation to periumbilical region was associated with nausea and vomiting. Initial CAT scan of the abdomen showed enlarged gallbladder with thickened wall. Normal amylase and lipase. The patient was admitted with the impression of acute cholecystitis, underwent an MRCP. MRCP showed acute cholecystitis. No evidence of choledocholithiasis or biliary obstruction. The patient subsequently underwent an ERCP today by GI consult shows sludge and no definite stone in the common bile duct. The patient is scheduled for possible cholecystectomy in the morning. REVIEW OF SYSTEMS: Had fever with chills this morning, subsequently resolved. Continue to have of pain in the epigastric/right upper quadrant area. No dysuria. No hematuria. No diarrhea. PHYSICAL EXAMINATION: VITAL SIGNS: Temperature 98.3, heart rate 87, blood pressure 122/80, mean arterial pressure 94, respiratory rate 18, and saturation 96% on room air. Intake and output 2325, positive balance 2325, output not documented. Weight 127 pounds. HEAD, EYES, EARS, NOSE AND THROAT: Pupils are reactive. Conjunctivae pink. Sclerae anicteric. Trachea is center. NECK: Supple. CHEST: Bilateral breath sounds clear to auscultation. HEART: Rhythm regular. S1 and S2 normal. No audible murmur or rub. ABDOMEN: Bowel sounds present. Tenderness in the right upper quadrant with rebound tenderness. GENITALIA: Normal. EXTREMITIES: Unremarkable. No palpable cord. DP plus equal in intensity. NEUROLOGIC: Nonfocal. CURRENT MEDICATIONS: Include Zosyn 3.375 g IV every 6 hours, Zofran 4 mg IV every 4 hours p.r.n., morphine 2 mg IV every 4 hours p.r.n. for moderate pain, Ringer's lactate at 125 mL per hour, Pepcid 20 mg IV daily, and Tylenol 325 mg every 6 hours p.r.n. LABORATORY DATA: SMA-7; sodium 140, potassium 3.1, chloride 104, CO2 of 24, blood urea nitrogen 22, creatinine 0.8, glucose of 103, calcium 8.3, phosphorus 4.4, magnesium 2.2, total bilirubin 2.9, AST 142, alkaline phosphatase 172, ALT 189, total protein 7.2, albumin 3.5, and lipase 75. Urinalysis; RBC 5 and WBC 1. Microbiology; blood culture no growth reported. Urine culture, no growth reported. IMPRESSION AND PLAN: A 61-year-old male admitted with right upper quadrant pain associated with nausea and vomiting with chills, borderline hypotension, noted to have acute cholecystitis with thickened gallbladder, status post endoscopic retrograde cholangiopancreatography, no definite dilatation of the common bile duct or stone, but for sludge, scheduled for cholecystectomy, emergent cholecystectomy if clinically stable or consider for cholecystostomy by interventional radiology. Continue antibiotic Zosyn 3.375 g every 6 hours. Continued gastrointestinal and deep venous thrombosis prophylaxis, Venodyne boots in place, and continue IV hydration. Luís Figueroa MD
[2017-05-29] MEDS ORDERED: Sodium Chloride 0.9% 500 ML IV ONE (07:42)
--- NOTE | 2017-05-29 09:30 | CP.PCM.PN ---
Subjective - Date & Time of Evaluation Date of Evaluation: 05/29/17 Time of Evaluation: 08:45 - Subjective Subjective: Pt is afebrile today still with abd pain but better had ERCP yesterday - pus in CBD noted no N/V denies CP no SOB Objective - Vital Signs/Intake and Output Vital Signs (last 24 hours): Temp Pulse Resp BP Pulse Ox 98.5 F 69 14 97/67 L 98 05/29/17 08:00 05/29/17 08:00 05/29/17 08:00 05/29/17 08:00 05/29/17 08:00 Intake and Output: 05/29/17 05/29/17 06:59 18:59 Intake Total 850 100 Output Total 350 Balance 500 100 - Medications Medications: Current Medications Acetaminophen (Tylenol 325 Mg Supp) 325 mg [place] Q6 PRN PRN Reason: Fever >100.4 F Last Admin: 05/28/17 00:52 Dose: 325 mg Famotidine (Pepcid) 20 mg IVP DAILY [facility] Last Admin: 05/29/17 09:23 Dose: 20 mg Piperacillin Sod/Tazobactam (Sod 3.375 gm/ Sodium Chloride) 100 mls @ 100 mls/ hr IVPB Q6 TRACI PRN Reason: Protocol Last Admin: 05/29/17 09:24 Dose: 100 mls/hr Lactated Ringer's (Lactated Ringer's) 1,000 mls @ 125 mls/hr IV .Q8H [facility] Last Admin: 05/29/17 03:51 Dose: 125 mls/hr Morphine Sulfate (Morphine) 4 mg IVP Q4 PRN PRN Reason: Pain, severe (8-10) Last Admin: 05/29/17 04:42 Dose: 4 mg Morphine Sulfate (Morphine) 2 mg IVP Q4 PRN PRN Reason: Pain, moderate (4-7) Ondansetron HCl (Zofran Inj) 4 mg IVP Q4 PRN PRN Reason: Nausea/Vomiting - Labs Labs: 05/29/17 04:35 05/29/17 04:35 PT 17.1 Seconds (9.8-13.1) H 05/28/17 09:10 INR 1.5 (0.9-1.2) H 05/28/17 09:10 APTT 34.6 Seconds (25.6-37.1) 05/28/17 09:10 - Constitutional Appears: No Acute Distress - Head Exam Head Exam: NORMAL INSPECTION, NORMOCEPHALIC - Eye Exam Eye Exam: EOMI, Normal appearance, PERRL Pupil Exam: NORMAL ACCOMODATION - ENT Exam ENT Exam: Mucous Membranes Dry, Normal External Ear Exam - Neck Exam Neck Exam: Full ROM. absent: Meningismus - Cardiovascular Exam Cardiovascular Exam: REGULAR RHYTHM, +S1, +S2 - GI/Abdominal Exam GI & Abdominal Exam: Soft, Tenderness, Normal Bowel Sounds - Extremities Exam Extremities Exam: Full ROM, Normal Capillary Refill. absent: Calf Tenderness - Back Exam Back Exam: Full ROM. absent: CVA tenderness (L), CVA tenderness (R) - Neurological Exam Neurological Exam: Alert, Awake, CN II-XII Intact, Oriented x3 Neuro motor strength exam: Left Upper Extremity: 5, Right Upper Extremity: 5, Left Lower Extremity: 5, Right Lower Extremity: 5 - Psychiatric Exam Psychiatric exam: Normal Affect, Normal Mood - Skin Skin Exam: Dry, Normal Color, Warm Assessment and Plan (1) Acute cholangitis Status: Acute - Assessment and Plan (Free Text) Assessment: 61 y/o gent, no significant PMH , came in because of abdominal pain mainly on the epigastric and RUQ , accompanied by N/V, and fever. Labs showed Leukocytosis and abn LFTs. Pt started on IV antibiotics CT of the abdomen: negative MRCP:Findings consistent with acute cholecystitis. No evidence of choledocholithiasis or biliary obstruction. GI and Surgery consulted. Pt underwent ERCP on 05/28 : noted pus in CBD 1. Acute Cholangitis - pt with low BP transferred to ICU fo close monitoring cont IVF hydration cont IV Zosyn s/p ERCP : noted pus in CBD Surgery consulted- plan for Lap Chantal in am Pt has good cardiac function ( greater than 4 mets) low cardiac risk for surgery - works in a warehouse, does a lot of heavy work, , denies any hx of Cp , SOB DVT proph - Heparin- hold dose -pt sched for OR in am
--- NOTE | 2017-05-29 12:06 | CP.PCM.PN ---
Subjective - Date & Time of Evaluation Date of Evaluation: 05/29/17 Time of Evaluation: 12:04 - Subjective Subjective: SURGERY NOTE FOR DR. COX 61M seen and examined at bedside. Patient states pain is improving, denies nausea/vomiting. Had mild hypotensive episodes overnight, responds to fluids. Objective - Vital Signs/Intake and Output Vital Signs (last 24 hours): Temp Pulse Resp BP Pulse Ox 98.5 F 76 17 100/63 98 05/29/17 08:00 05/29/17 10:00 05/29/17 10:00 05/29/17 10:00 05/29/17 10:00 Intake and Output: 05/29/17 05/29/17 06:59 18:59 Intake Total 850 100 Output Total 350 400 Balance 500 -300 - Medications Medications: Current Medications Acetaminophen (Tylenol 325 Mg Supp) 325 mg [place] Q6 PRN PRN Reason: Fever >100.4 F Last Admin: 05/28/17 00:52 Dose: 325 mg Famotidine (Pepcid) 20 mg IVP DAILY [facility] Last Admin: 05/29/17 09:23 Dose: 20 mg Piperacillin Sod/Tazobactam (Sod 3.375 gm/ Sodium Chloride) 100 mls @ 100 mls/ hr IVPB Q6 TRACI PRN Reason: Protocol Last Admin: 05/29/17 09:24 Dose: 100 mls/hr Lactated Ringer's (Lactated Ringer's) 1,000 mls @ 125 mls/hr IV .Q8H [facility] Last Admin: 05/29/17 03:51 Dose: 125 mls/hr Morphine Sulfate (Morphine) 4 mg IVP Q4 PRN PRN Reason: Pain, severe (8-10) Last Admin: 05/29/17 04:42 Dose: 4 mg Morphine Sulfate (Morphine) 2 mg IVP Q4 PRN PRN Reason: Pain, moderate (4-7) Ondansetron HCl (Zofran Inj) 4 mg IVP Q4 PRN PRN Reason: Nausea/Vomiting - Labs Labs: 05/29/17 04:35 05/29/17 04:35 PT 17.1 Seconds (9.8-13.1) H 05/28/17 09:10 INR 1.5 (0.9-1.2) H 05/28/17 09:10 APTT 34.6 Seconds (25.6-37.1) 05/28/17 09:10 - Constitutional Appears: Well, Non-toxic, No Acute Distress - Respiratory Exam Respiratory Exam: Clear to Ausculation Bilateral, NORMAL BREATHING PATTERN - Cardiovascular Exam Cardiovascular Exam: REGULAR RHYTHM, +S1, +S2 - GI/Abdominal Exam GI & Abdominal Exam: Soft, Tenderness (diffusely tender, mainly in the RUQ). absent: Distended, Firm, Guarding, Rigid, Rebound - Extremities Exam Extremities Exam: absent: Pedal Edema, Tenderness - Neurological Exam Neurological Exam: Alert, Awake - Skin Skin Exam: Dry, Intact, Warm Assessment and Plan - Assessment and Plan (Free Text) Assessment: 61M with acute cholecystitis, s/p ERCP POD1 which expresses sludge and pus from CBD, likely down from gallbladder Plan: NPO Continue IVF Continue antibiotics Booked for OR 4/[address] Prosper Rutledge, PGY2
--- NOTE | 2017-05-29 14:52 | CP.PCM.PN ---
Subjective - Date & Time of Evaluation Date of Evaluation: 05/29/17 Time of Evaluation: 09:00 - Subjective Subjective: Patient seen in MICU this am. s/p urgent ERCP yesterday for cholangitis that showed pus in bile ducts s/p needle knife with extraction of pus. this am LFt downtrending. Denies dark stools, melena or hematemesis Objective - Vital Signs/Intake and Output Vital Signs (last 24 hours): Temp Pulse Resp BP Pulse Ox 98.6 F 66 18 104/72 99 05/29/17 12:00 05/29/17 12:00 05/29/17 12:00 05/29/17 12:00 05/29/17 12:00 Intake and Output: 05/29/17 05/29/17 06:59 18:59 Intake Total 850 100 Output Total 350 800 Balance 500 -700 - Medications Medications: Current Medications Acetaminophen (Tylenol 325 Mg Supp) 325 mg [place] Q6 PRN PRN Reason: Fever >100.4 F Last Admin: 05/28/17 00:52 Dose: 325 mg Famotidine (Pepcid) 20 mg IVP DAILY [facility] Last Admin: 05/29/17 09:23 Dose: 20 mg Heparin Sodium (Porcine) (Heparin) 5,000 units SC Q12 TRACI PRN Reason: Protocol Piperacillin Sod/Tazobactam (Sod 3.375 gm/ Sodium Chloride) 100 mls @ 100 mls/ hr IVPB Q6 TRACI PRN Reason: Protocol Last Admin: 05/29/17 09:24 Dose: 100 mls/hr Lactated Ringer's (Lactated Ringer's) 1,000 mls @ 150 mls/hr IV .Q6H40M [facility] Morphine Sulfate (Morphine) 4 mg IVP Q4 PRN PRN Reason: Pain, severe (8-10) Last Admin: 05/29/17 04:42 Dose: 4 mg Morphine Sulfate (Morphine) 2 mg IVP Q4 PRN PRN Reason: Pain, moderate (4-7) Ondansetron HCl (Zofran Inj) 4 mg IVP Q4 PRN PRN Reason: Nausea/Vomiting - Labs Labs: 05/29/17 04:35 05/29/17 04:35 PT 17.1 Seconds (9.8-13.1) H 04/03/18 09:10 INR 1.5 (0.9-1.2) H 05/28/17 09:10 APTT 34.6 Seconds (25.6-37.1) 05/28/17 09:10 - Constitutional Appears: Well - Head Exam Head Exam: ATRAUMATIC, NORMAL INSPECTION, NORMOCEPHALIC - ENT Exam ENT Exam: Mucous Membranes Moist, Normal Exam - Neck Exam Neck Exam: Full ROM, Normal Inspection. absent: Lymphadenopathy - Respiratory Exam Respiratory Exam: Clear to Ausculation Bilateral, NORMAL BREATHING PATTERN - Cardiovascular Exam Cardiovascular Exam: REGULAR RHYTHM, +S1, +S2. absent: Murmur - GI/Abdominal Exam GI & Abdominal Exam: Distended, Soft, Normal Bowel Sounds. absent: Tenderness - Extremities Exam Extremities Exam: Full ROM, Normal Capillary Refill, Normal Inspection. absent : Joint Swelling, Pedal Edema - Neurological Exam Neurological Exam: Alert, Awake, CN II-XII Intact, Normal Gait, Oriented x3 - Psychiatric Exam Psychiatric exam: Normal Affect, Normal Mood - Skin Skin Exam: Dry, Intact, Normal Color, Warm Assessment and Plan - Assessment and Plan (Free Text) Assessment: This is a 61 yr old turkmen speaking M admitted with cholangitis with cholecystitis s/p ERCP and bile duct extraction s/p needle knife with LFt downtrending. Plan: - Discussed with the surgeon- patient will benefit from laprascopic cholecystectomy - Trend daily LFT - Trend wbc and fever curve - Continue antibiotics - Diet as per surgical service - Patient does not have any contra indications to go to the OR for CCY
--- NOTE | 2017-05-29 18:27 | RAD ---
HISTORY: COMPARISON: No prior. TECHNIQUE: Chest PA and lateral FINDINGS: LINES AND TUBES: None. LUNG AND PLEURA: The lungs are well inflated. There is right apical pleural thickening. No pleural effusions or pneumothorax. There are chronic changes in both lungs and bibasilar atelectasis. There is confluent airspace disease in the left lower lobe. HEART AND MEDIASTINUM: The heart is not enlarged. The hilar and mediastinal contours are within normal limits. SKELETAL STRUCTURES: The bony structures are within normal limits for the patient's age. VISUALIZED UPPER ABDOMEN: Normal. OTHER FINDINGS: None. IMPRESSION: Chronic changes in both lungs which may be related to prior infection/ inflammation or COPD. Right apical pleural thickening. Airspace disease in the left lower lobe may represent atelectasis however superimposed pneumonia cannot be entirely excluded follow-up is advised.
[2017-05-30] MEDS: Piperacillin/Tazobact 3.375 GM in Sodium Chloride 0.9% 100 ML IVPB SCH ×4 (03:03→21:08)
[2017-05-30] MEDS: Lactated Ringer's 1,000 ML IV SCH ×2 (04:04→16:47)
[2017-05-30 05:26] LABS: BASO % 0.3 % (0.0-2.0); EOS # 0.1 K/uL (0.0-0.7); EOS % 0.4 % (0.0-4.0); HEMOGLOBIN 11.8 g/dL (12.0-18.0); LYMPH # 0.8 K/uL (1.0-4.3); LYMPH % 5.7 % (20.0-40.0); MEAN CELL VOLUME 91.4 fl (80.0-94.0); MEAN CORPUSCULAR HGB CONC 33.9 g/dL (33.0-37.0); MEAN PLATELET VOLUME 8.8 fl (7.2-11.7); MONO # 0.9 K/uL (0.0-0.8); MONO % 6.2 % (0.0-10.0); NEUT # 12.1 K/uL (1.8-7.0); NEUT % 87.4 % (50.0-75.0); NRBC % 0.1 % (0.0-0.0); PLATELET COUNT 187 K/uL (130-400); RED CELL DISTRIBUTION WIDTH 14.1 % (11.5-14.5); WHITE BLOOD COUNT 13.9 K/uL (4.8-10.8)
[2017-05-30] MEDS: Morphine 4 MG/ML VIAL IVP PRN ×5 (05:29→14:14)
[2017-05-30 05:46] LABS: INR 1.1 (0.9-1.2); PARTIAL THROMBOPLASTIN TIME 33.1 Seconds (25.6-37.1); PROTHROMBIN TIME 12.2 Seconds (9.8-13.1)
[2017-05-30 06:13] LABS: ALB/GLOB RATIO 0.8 (1.0-2.1); ALBUMIN 3.1 g/dL (3.5-5.0); ALT/SGPT 96 U/L (21-72); AST/SGOT 33 U/L (17-59); BLOOD UREA NITROGEN 13 mg/dl (9-20); CALCIUM 8.2 mg/dL (8.4-10.2); GFR AFRICAN-AMERICAN > 60; GFR NON-AFRICAN AMERICAN > 60
[2017-05-30] MEDS: Potassium Chloride 20 mEq 100 ML IVPB SCH ×2 (06:58→08:23)
[2017-05-30] MEDS ORDERED: Lactated Ringer's 1,000 ML IV ONE ×2 (11:12→11:17)
[2017-05-30] MEDS ORDERED: Sodium Chloride 0.9% 1,000 ML IV ONE ×2 (12:00→12:40)
[2017-05-30 12:09] LABS: BANDS 3 % (0-2); HYPOCHROMIC SLIGHT; LYMPHOCYTE 8 % (20-50); MONOCYTE 2 % (0-10); NEUTROPHIL 87 % (42-75); PLATELET ESTIMATE NORMAL (NORMAL); TOTAL CELLS COUNTED 100
[2017-05-30 12:10] LABS: OVALOCYTES SLIGHT; SCHISTOCYTES SLIGHT; TEARDROP CELLS SLIGHT; TOXIC GRANULATION PRESENT
[2017-05-30] MEDS ORDERED: Bupivacaine 0.5% 50 ML IJ ONE (12:15)
--- NOTE | 2017-05-30 14:17 | PCM.SURG1 ---
Surgeon's Initial Post Op Note - Surgeon's Notes Surgeon: MD Prosper Painter [place]: Aamir PGY2. Aylin PGY2. [place], PGY1. VICKY Martínez, PGY1 Pre-Operative Diagnosis: Acute cholecystitis Operative Findings: imflammed gallbladder, gall stones, purulent fluid in gallbladder Post-Operative Diagnosis: Acute cholecystitis Operation Performed: Laparoscopic cholecystitis Specimen/Specimens Removed: Gallbladder, gallstone, bilous/purulent fluid from gallbladder Estimated Blood Loss: EBL {In ML}: 50 Date of Surgery/Procedure: 05/30/17 Time of Surgery/Procedure: 11:00
--- NOTE | 2017-05-30 16:27 | CP.PCM.PN ---
Subjective - Date & Time of Evaluation Date of Evaluation: 05/30/17 Time of Evaluation: 14:00 - Subjective Subjective: Pt seen in PACU immediate post Lap Chantal Pt stable and doing well Had fever this am still with Leukocytosis 13.9 Objective - Vital Signs/Intake and Output Vital Signs (last 24 hours): Temp Pulse Resp BP Pulse Ox 97.8 F 88 18 110/70 99 05/30/17 16:00 05/30/17 16:00 05/30/17 16:00 05/30/17 16:00 05/30/17 16:00 Intake and Output: 05/30/17 05/30/17 06:59 18:59 Intake Total 1700 2400 Output Total 1150 550 Balance 550 1850 - Medications Medications: Current Medications Acetaminophen (Tylenol 325 Mg Supp) 325 mg [place] Q6 PRN PRN Reason: Fever >100.4 F Last Admin: 05/28/17 00:52 Dose: 325 mg Famotidine (Pepcid) 20 mg IVP DAILY [facility] Last Admin: 05/29/17 09:23 Dose: 20 mg Heparin Sodium (Porcine) (Heparin) 5,000 units SC Q12 TRACI PRN Reason: Protocol Last Admin: 05/29/17 16:43 Dose: Not Given Piperacillin Sod/Tazobactam (Sod 3.375 gm/ Sodium Chloride) 100 mls @ 100 mls/ hr IVPB Q6 TRACI PRN Reason: Protocol Last Admin: 05/30/17 09:24 Dose: 100 mls/hr Lactated Ringer's (Lactated Ringer's) 1,000 mls @ 150 mls/hr IV .Q6H40M [facility] Last Admin: 05/30/17 04:04 Dose: 150 mls/hr Sodium Chloride (Sodium Chloride 0.9%) 1,000 mls @ 100 mls/hr IV .Q10H [facility] Morphine Sulfate (Morphine) 4 mg IVP Q4 PRN PRN Reason: Pain, severe (8-10) Last Admin: 05/30/17 05:29 Dose: 4 mg Morphine Sulfate (Morphine) 4 mg IVP Q4 PRN PRN Reason: Pain, severe (8-10) Ondansetron HCl (Zofran Inj) 4 mg IVP Q4 PRN PRN Reason: Nausea/Vomiting - Labs Labs: 05/30/17 04:45 05/30/17 04:45 PT 12.2 Seconds (9.8-13.1) 05/30/17 04:45 INR 1.1 (0.9-1.2) 05/30/17 04:45 APTT 33.1 Seconds (25.6-37.1) 05/30/17 04:45 - Constitutional Appears: No Acute Distress - Head Exam Head Exam: NORMAL INSPECTION, NORMOCEPHALIC - Eye Exam Eye Exam: EOMI, Normal appearance, PERRL Pupil Exam: NORMAL ACCOMODATION - ENT Exam ENT Exam: Mucous Membranes Dry, Normal External Ear Exam - Neck Exam Neck Exam: Full ROM. absent: Meningismus - Cardiovascular Exam Cardiovascular Exam: REGULAR RHYTHM, +S1, +S2 - GI/Abdominal Exam GI & Abdominal Exam: post op surgical wounds with glue sl distended, hypoactive BS - Extremities Exam Extremities Exam: Full ROM, Normal Capillary Refill. absent: Calf Tenderness - Back Exam Back Exam: Full ROM. absent: CVA tenderness (L), CVA tenderness (R) - Neurological Exam Neurological Exam: Alert, Awake, CN II-XII Intact, Oriented x3 - Psychiatric Exam Psychiatric exam: Normal Affect, Normal Mood - Skin Skin Exam: Dry, Normal Color, Warm Assessment and Plan (1) Acute cholangitis Status: Acute - Assessment and Plan (Free Text) Assessment: 61 y/o gent, no significant PMH , came in because of abdominal pain mainly on the epigastric and RUQ , accompanied by N/V, and fever. Labs showed Leukocytosis and abn LFTs. Pt started on IV antibiotics CT of the abdomen: negative MRCP:Findings consistent with acute cholecystitis. No evidence of choledocholithiasis or biliary obstruction. GI and Surgery consulted. Pt underwent ERCP on 05/28 : noted pus in CBD Today 05/30 : pt went for Lap Cholecystectomy 1. Acute Cholangitis/Cholecystitis s/p Lap Chantal s/p ERCP transferred to ICU fo close monitoring bec of hypotension cont IVF hydration cont IV Zosyn s/p ERCP : noted pus in CBD Surgery consulted and pt went for Lap Chantal today Pain mgt Transfer to Telemetry keep NPO until diet upgraded bu Surgery DVT proph - Heparin- restart in am
[2017-05-30 16:59] LABS: HEPATITIS B SURFACE AG Negative (NEGATIVE)
[2017-05-30 17:04] LABS: HEPATITIS A IGM NEGATIVE (NEGATIVE); HEPATITIS B CORE AB NEGATIVE (NEGATIVE)
[2017-05-30 17:16] LABS: HEPATITIS C ANTIBODY NEGATIVE (NEGATIVE)
[2017-05-31] MEDS: Lactated Ringer's 1,000 ML IV SCH (02:11)
[2017-05-31] MEDS: Piperacillin/Tazobact 3.375 GM in Sodium Chloride 0.9% 100 ML IVPB SCH ×4 (04:08→21:27)
[2017-05-31] MEDS: Morphine 4 MG/ML VIAL IVP PRN (05:07)
[2017-05-31 05:51] LABS: HEMOGLOBIN 11.7 g/dL (12.0-18.0); MEAN CELL VOLUME 90.6 fl (80.0-94.0); MEAN CORPUSCULAR HEMOGLOBIN 31.2 pg (27.0-31.0); MEAN CORPUSCULAR HGB CONC 34.4 g/dL (33.0-37.0); RBC 3.74 Mil/uL (4.40-5.90); RED CELL DISTRIBUTION WIDTH 14.1 % (11.5-14.5); WHITE BLOOD COUNT 12.4 K/uL (4.8-10.8)
[2017-05-31 06:21] LABS: ALB/GLOB RATIO 0.8 (1.0-2.1); ALBUMIN 3.1 g/dL (3.5-5.0); ALT/SGPT 86 U/L (21-72); AST/SGOT 42 U/L (17-59); BLOOD UREA NITROGEN 15 mg/dl (9-20); CALCIUM 8.8 mg/dL (8.4-10.2); GFR AFRICAN-AMERICAN > 60; GFR NON-AFRICAN AMERICAN > 60
--- NOTE | 2017-05-31 07:54 | CP.PCM.PN ---
Subjective - Date & Time of Evaluation Date of Evaluation: 05/31/17 Time of Evaluation: 06:30 - Subjective Subjective: Patient seen and examined. No acute events over night. Tolerating liquid diet. Objective - Vital Signs/Intake and Output Vital Signs (last 24 hours): Temp Pulse Resp BP Pulse Ox 97.9 F 83 16 122/83 95 05/31/17 05:09 05/31/17 05:09 05/31/17 05:09 05/31/17 05:09 05/31/17 05:09 Intake and Output: 05/31/17 05/31/17 06:59 18:59 Intake Total 2140 Output Total 800 Balance 1340 - Medications Medications: Current Medications Acetaminophen (Tylenol 325 Mg Supp) 325 mg [place] Q6 PRN PRN Reason: Fever >100.4 F Last Admin: 05/28/17 00:52 Dose: 325 mg Famotidine (Pepcid) 20 mg IVP DAILY [facility] Last Admin: 05/29/17 09:23 Dose: 20 mg Heparin Sodium (Porcine) (Heparin) 5,000 units SC Q12 TRACI PRN Reason: Protocol Last Admin: 05/29/17 16:43 Dose: Not Given Piperacillin Sod/Tazobactam (Sod 3.375 gm/ Sodium Chloride) 100 mls @ 100 mls/ hr IVPB Q6 TRACI PRN Reason: Protocol Last Admin: 05/31/17 04:08 Dose: 100 mls/hr Sodium Chloride (Sodium Chloride 0.9%) 1,000 mls @ 100 mls/hr IV .Q10H [facility] Morphine Sulfate (Morphine) 4 mg IVP Q4 PRN PRN Reason: Pain, severe (8-10) Last Admin: 05/31/17 05:07 Dose: 4 mg Ondansetron HCl (Zofran Inj) 4 mg IVP Q4 PRN PRN Reason: Nausea/Vomiting - Labs Labs: 05/31/17 05:10 05/31/17 05:10 PT 12.2 Seconds (9.8-13.1) 05/30/17 04:45 INR 1.1 (0.9-1.2) 05/30/17 04:45 APTT 33.1 Seconds (25.6-37.1) 05/30/17 04:45 - Constitutional Appears: No Acute Distress - Head Exam Head Exam: NORMOCEPHALIC - Eye Exam Eye Exam: Normal appearance - ENT Exam ENT Exam: Mucous Membranes Moist - Respiratory Exam Respiratory Exam: NORMAL BREATHING PATTERN - Cardiovascular Exam Cardiovascular Exam: +S1, +S2 - GI/Abdominal Exam GI & Abdominal Exam: Soft - Neurological Exam Neurological Exam: Alert, Awake, Oriented x3 - Psychiatric Exam Psychiatric exam: Normal Mood - Skin Skin Exam: Dry, Intact, Warm Assessment and Plan - Assessment and Plan (Free Text) Assessment: 61M w/ cholangitis-resolved, s/p laparoscopic cholecystectomy POD1 -regular diet -c/w abx -resume anticoagulation -encourage incentive spirometer use -OOB, encourage ambulation -D/w Dr. Prosper Avery PGY2
--- NOTE | 2017-05-31 08:38 | OP ---
PROCEDURE DATE: 05/30/17 PREOPERATIVE DIAGNOSES: Acute on chronic cholecystitis and lithiasis with cholangitis. POSTOPERATIVE DIAGNOSES: Acute on chronic cholecystitis and lithiasis with cholangitis. OPERATION PROCEDURE: Laparoscopic cholecystectomy. SURGEON: Washington Cheng MD ASSISTANTS: DESCRIPTION OF PROCEDURE: In the operating room, the patient was identified by name, name of procedure, laterality, my yesika, and the consent was obtained by Finnish speaking resident. Preoperatively, the blood pressure now is normal. The white count is down from 18 to 13.9. The total bilirubin is 2.2 down from 2.9. is normal as was the ALT, it was just a little bit high. The patient had a papillotomy and aspiration of the common duct. 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 The original plan was to wait until he calm down completely. In the operating room, the patient was identified by the above mentioned sites. The wound was prepped with chlorhexidine, waiting 3 minutes, and it was then draped. The time-out was then successful and the operation began. In the operating room, the abdomen was entered through a Veress needle through the infraumbilical position because it was a palpable gallbladder and a very short abdomen. The xiphoid 5 and two lateral 5s were then placed. The gallbladder was aspirated once at the top, fundus was seen. A 50 mL of pus were aspirated, cultured aerobically and anaerobically. We have to use the tooth Prestige clamp as it was impossible to grabbed the gallbladder without. Carefully, the omentum was pulled down and exposing relatively normal distended, firmed, and inflamed gallbladder. A second tooth forceps was placed at the infundibulum and this allowed us to bluntly spread apart the peritoneum to expose the presumptive cystic duct nicely. The cystic artery was little bit harder to identify, but after some circumferential dissection both on the left and right side of the peritoneum, the cystic artery was clearly identified and circumscribed. The cystic duct was then circumscribed to my satisfaction. The clamp was then allowed to pass behind both the cystic duct and artery very nicely without interfering structures. The view of safety was seen to my satisfaction. The cystic artery was doubly clipped and divided the distal one coming off, but there was no bleeding and nothing were needed to be done. Intervening structures were swept away or burned depending under direct vision. Cystic duct was doubly clipped with a large clipper given excellent closure. The gallbladder site cannot be clipped and harmonic was used to separate the gallbladder from the liver bed. It came out very nicely, a little bit of bleeding that was somewhat troublesome, but eventually came and placed in a bag. Hemostasis was achieved. Initially, there was little bit of bleeding from the liver bed, but cautery stopped this nicely. Above the liver and below the liver, it was cleaned nicely. The omentum was placed in the bag. Discussion for drain, I elected not too. The gallbladder was taken off the liver out through the xiphoid 10 port, the bag broke and the incision was enlarged and the entire gallbladder removed. It was widely opened. The gallbladder still had to be emptied of the stones, this was done with a sponge stick and came out very nicely. The artery and the incision was cauterized and the incision was closed at the end with a #1 Prolene, 3 mattress stitches were placed to give good closure. This was done after the abdomen was reexplored, there was nothing untoward. No bleeding and no bile. The incisions were then closed under direct vision with Vicryl, Marcaine, subcuticular Vicryl, and subcuticular PDS. The patient was taken back to the ICU via recovery room in good condition. Washington Cheng MD
--- NOTE | 2017-05-31 09:00 | CP.PCM.PN ---
Subjective - Date & Time of Evaluation Date of Evaluation: 05/31/17 Time of Evaluation: 08:30 - Subjective Subjective: No fever + flatus no BM Tolerating liquid diet denies CP no SOB Objective - Vital Signs/Intake and Output Vital Signs (last 24 hours): Temp Pulse Resp BP Pulse Ox 97.5 F L 75 20 105/69 98 05/31/17 08:25 05/31/17 08:25 05/31/17 08:25 05/31/17 08:25 05/31/17 08:25 Intake and Output: 05/31/17 05/31/17 06:59 18:59 Intake Total 2140 Output Total 800 Balance 1340 - Medications Medications: Current Medications Acetaminophen (Tylenol 325 Mg Supp) 325 mg [place] Q6 PRN PRN Reason: Fever >100.4 F Last Admin: 05/28/17 00:52 Dose: 325 mg Famotidine (Pepcid) 20 mg IVP DAILY [facility] Last Admin: 05/29/17 09:23 Dose: 20 mg Heparin Sodium (Porcine) (Heparin) 5,000 units SC Q12 [facility]ACI PRN Reason: Protocol Last Admin: 05/29/17 16:43 Dose: Not Given Piperacillin Sod/Tazobactam (Sod 3.375 gm/ Sodium Chloride) 100 mls @ 100 mls/ hr IVPB Q6 TRACI PRN Reason: Protocol Last Admin: 05/31/17 04:08 Dose: 100 mls/hr Sodium Chloride (Sodium Chloride 0.9%) 1,000 mls @ 100 mls/hr IV .Q10H [facility] Morphine Sulfate (Morphine) 4 mg IVP Q4 PRN PRN Reason: Pain, severe (8-10) Last Admin: 05/31/17 05:07 Dose: 4 mg Ondansetron HCl (Zofran Inj) 4 mg IVP Q4 PRN PRN Reason: Nausea/Vomiting - Labs Labs: 05/31/17 05:10 05/31/17 05:10 PT 12.2 Seconds (9.8-13.1) 05/30/17 04:45 INR 1.1 (0.9-1.2) 05/30/17 04:45 APTT 33.1 Seconds (25.6-37.1) 05/30/17 04:45 - Constitutional Appears: No Acute Distress - Head Exam Head Exam: NORMAL INSPECTION, NORMOCEPHALIC - Eye Exam Eye Exam: EOMI, Normal appearance, PERRL Pupil Exam: NORMAL ACCOMODATION - ENT Exam ENT Exam: Mucous Membranes Dry, Normal External Ear Exam - Neck Exam Neck Exam: Full ROM. absent: Meningismus - Cardiovascular Exam Cardiovascular Exam: REGULAR RHYTHM, +S1, +S2 - GI/Abdominal Exam GI & Abdominal Exam: post op surgical wounds with glue sl distended, hypoactive BS - Extremities Exam Extremities Exam: Full ROM, Normal Capillary Refill. absent: Calf Tenderness - Back Exam Back Exam: Full ROM. absent: CVA tenderness (L), CVA tenderness (R) - Neurological Exam Neurological Exam: Alert, Awake, CN II-XII Intact, Oriented x3 - Psychiatric Exam Psychiatric exam: Normal Affect, Normal Mood - Skin Skin Exam: Dry, Normal Color, Warm Assessment and Plan (1) Acute cholangitis Status: Acute - Assessment and Plan (Free Text) Assessment: 61 y/o gent, no significant PMH , came in because of abdominal pain mainly on the epigastric and RUQ , accompanied by N/V, and fever. Labs showed Leukocytosis and abn LFTs. Pt started on IV antibiotics CT of the abdomen: negative MRCP:Findings consistent with acute cholecystitis. No evidence of choledocholithiasis or biliary obstruction. GI and Surgery consulted. Pt underwent ERCP on 05/28 : noted pus in CBD 05/30 : pt went for Lap Cholecystectomy 1. Acute Cholangitis/Cholecystitis s/p Lap Chantal s/p ERCP transferred to ICU fo close monitoring bec of hypotension- now in Tele and doing well post op cont IVF hydration cont IV Zosyn - needs total 2 wks antibiotics as discussed with Dr Damon ( will change to PO on discharge) s/p ERCP : noted pus in CBD Surgery consulted and pt went for Lap Chantal today Pain mgt Transfer to Med Surg now on Clear liquid diet and tolerating DVT proph - Heparin-
[2017-05-31] MEDS: Oxycodone/Acetaminophen 5/325 mg Tab PO PRN ×2 (14:37→22:34)
[2017-05-31] MEDS: Sodium Chloride 0.9% 1,000 ML IV SCH (16:38)
--- NOTE | 2017-05-31 18:04 | CP.PCM.PN ---
Subjective - Date & Time of Evaluation Date of Evaluation: 05/31/17 Time of Evaluation: 09:00 - Subjective Subjective: Patient seen in tele. OOB to chair. No BM yet. s/p cholecystectomy with pus in GB Objective - Vital Signs/Intake and Output Vital Signs (last 24 hours): Temp Pulse Resp BP Pulse Ox 98.1 F 84 20 113/75 90 L 05/31/17 16:05 05/31/17 16:05 05/31/17 16:05 05/31/17 16:05 05/31/17 16:05 Intake and Output: 05/31/17 05/31/17 06:59 18:59 Intake Total 2140 1900 Output Total 800 700 Balance 1340 1200 - Medications Medications: Current Medications Acetaminophen (Tylenol 325 Mg Supp) 325 mg [place] Q6 PRN PRN Reason: Fever >100.4 F Last Admin: 05/28/17 00:52 Dose: 325 mg Famotidine (Pepcid) 20 mg IVP DAILY [facility] Last Admin: 05/31/17 16:36 Dose: 20 mg Heparin Sodium (Porcine) (Heparin) 5,000 units SC Q12 TRACI PRN Reason: Protocol Last Admin: 05/31/17 14:40 Dose: 5,000 units Piperacillin Sod/Tazobactam (Sod 3.375 gm/ Sodium Chloride) 100 mls @ 100 mls/ hr IVPB Q6 [facility]ACI PRN Reason: Protocol Last Admin: 05/31/17 16:39 Dose: 100 mls/hr Sodium Chloride (Sodium Chloride 0.9%) 1,000 mls @ 100 mls/hr IV .Q10H [facility] Last Admin: 05/31/17 16:38 Dose: 100 mls/hr Morphine Sulfate (Morphine) 4 mg IVP Q4 PRN PRN Reason: Pain, severe (8-10) Last Admin: 05/31/17 05:07 Dose: 4 mg Ondansetron HCl (Zofran Inj) 4 mg IVP Q4 PRN PRN Reason: Nausea/Vomiting Oxycodone/Acetaminophen (Percocet 5/325 Mg Tab) 1 tab PO Q4 PRN PRN Reason: Pain, moderate (4-7) Stop: 06/03/17 14:22 Last Admin: 05/31/17 14:37 Dose: 1 tab - Labs Labs: 05/31/17 05:10 05/31/17 05:10 PT 12.2 Seconds (9.8-13.1) 05/30/17 04:45 INR 1.1 (0.9-1.2) 05/30/17 04:45 APTT 33.1 Seconds (25.6-37.1) 05/30/17 04:45 - Constitutional Appears: Well - Head Exam Head Exam: ATRAUMATIC, NORMAL INSPECTION, NORMOCEPHALIC - Eye Exam Eye Exam: EOMI, Normal appearance, PERRL Pupil Exam: NORMAL ACCOMODATION, PERRL - ENT Exam ENT Exam: Mucous Membranes Moist, Normal Exam - Neck Exam Neck Exam: Full ROM, Normal Inspection. absent: Lymphadenopathy - Respiratory Exam Respiratory Exam: Clear to Ausculation Bilateral, NORMAL BREATHING PATTERN - Cardiovascular Exam Cardiovascular Exam: REGULAR RHYTHM, RRR, +S1, +S2. absent: Murmur - GI/Abdominal Exam GI & Abdominal Exam: Distended, Soft, Tenderness, Hypoactive Bowel Sounds Additional comments: No NELSON drain. - Neurological Exam Neurological Exam: Alert, Awake, Oriented x3 - Psychiatric Exam Psychiatric exam: Normal Affect, Normal Mood - Skin Skin Exam: Dry, Warm Assessment and Plan - Assessment and Plan (Free Text) Assessment: This is a 61 yr old [place] citizen speaking M admitted with cholangitis with cholecystitis s/p ERCP and bile duct extraction s/p needle knife s/p laprascopic cholecystectomy with LFt downtrending. Plan: - Diet as tolerated - OOB to chair - Continue antibiotics to complete two week course - can be transitioned to Po upon discharge - Needs outpatient colonoscopy - can follow with me in [facility] - Diet as per surgical service - Discussed with the hospitalist - Will sign off - Thank you for letting us participate in the care of your patient
[2017-06-01] MEDS: Sodium Chloride 0.9% 1,000 ML IV SCH ×2 (00:24→00:25)
[2017-06-01] MEDS: Piperacillin/Tazobact 3.375 GM in Sodium Chloride 0.9% 100 ML IVPB SCH ×4 (04:24→21:20)
[2017-06-01] MEDS: Oxycodone/Acetaminophen 5/325 mg Tab PO PRN ×2 (05:22→17:36)
[2017-06-01 07:51] LABS: BASO % 0.3 % (0.0-2.0); EOS % 0.4 % (0.0-4.0); HEMOGLOBIN 12.1 g/dL (12.0-18.0); LYMPH # 2.2 K/uL (1.0-4.3); LYMPH % 17.5 % (20.0-40.0); MEAN CELL VOLUME 91.8 fl (80.0-94.0); MEAN CORPUSCULAR HEMOGLOBIN 31.3 pg (27.0-31.0); MEAN CORPUSCULAR HGB CONC 34.1 g/dL (33.0-37.0); MEAN PLATELET VOLUME 8.2 fl (7.2-11.7); MONO # 1.5 K/uL (0.0-0.8); MONO % 11.6 % (0.0-10.0); NEUT # 8.8 K/uL (1.8-7.0); NEUT % 70.2 % (50.0-75.0); RBC 3.87 Mil/uL (4.40-5.90); RED CELL DISTRIBUTION WIDTH 14.4 % (11.5-14.5); WHITE BLOOD COUNT 12.5 K/uL (4.8-10.8)
[2017-06-01 07:55] LABS: ALB/GLOB RATIO 0.7 (1.0-2.1); ALBUMIN 2.9 g/dL (3.5-5.0); ALT/SGPT 72 U/L (21-72); AST/SGOT 48 U/L (17-59); BLOOD UREA NITROGEN 16 mg/dl (9-20); CALCIUM 8.2 mg/dL (8.4-10.2); GFR AFRICAN-AMERICAN > 60; GFR NON-AFRICAN AMERICAN > 60
--- NOTE | 2017-06-01 07:56 | CP.PCM.PN ---
Subjective - Date & Time of Evaluation Date of Evaluation: 06/01/17 Time of Evaluation: 06:30 - Subjective Subjective: Patient seen and examined. No acute events over night. Complaining of abdominal pain. States he was only able to eat yogurt. Reported chills. Objective - Vital Signs/Intake and Output Vital Signs (last 24 hours): Temp Pulse Resp BP Pulse Ox 98.0 F 84 18 108/70 95 06/01/17 05:19 06/01/17 05:19 06/01/17 05:19 06/01/17 05:19 06/01/17 05:19 - Medications Medications: Current Medications Acetaminophen (Tylenol 325 Mg Supp) 325 mg [place] Q6 PRN PRN Reason: Fever >100.4 F Last Admin: 05/28/17 00:52 Dose: 325 mg Famotidine (Pepcid) 20 mg IVP DAILY [facility] Last Admin: 05/31/17 16:36 Dose: 20 mg Heparin Sodium (Porcine) (Heparin) 5,000 units SC Q12 TRACI PRN Reason: Protocol Last Admin: 05/31/17 21:26 Dose: 5,000 units Piperacillin Sod/Tazobactam (Sod 3.375 gm/ Sodium Chloride) 100 mls @ 100 mls/ hr IVPB Q6 [facility]ACI PRN Reason: Protocol Last Admin: 06/01/17 04:24 Dose: 100 mls/hr Sodium Chloride (Sodium Chloride 0.9%) 1,000 mls @ 100 mls/hr IV .Q10H [facility] Last Admin: 06/01/17 00:25 Dose: 100 mls/hr Morphine Sulfate (Morphine) 4 mg IVP Q4 PRN PRN Reason: Pain, severe (8-10) Last Admin: 05/31/17 05:07 Dose: 4 mg Ondansetron HCl (Zofran Inj) 4 mg IVP Q4 PRN PRN Reason: Nausea/Vomiting Oxycodone/Acetaminophen (Percocet 5/325 Mg Tab) 1 tab PO Q4 PRN PRN Reason: Pain, moderate (4-7) Stop: 06/03/17 14:22 Last Admin: 06/01/17 05:22 Dose: 1 tab - Labs Labs: 05/31/17 05:10 05/31/17 05:10 PT 12.2 Seconds (9.8-13.1) 05/30/17 04:45 INR 1.1 (0.9-1.2) 05/30/17 04:45 APTT 33.1 Seconds (25.6-37.1) 05/30/17 04:45 - Constitutional Appears: No Acute Distress - Head Exam Head Exam: NORMOCEPHALIC - Eye Exam Eye Exam: Normal appearance - ENT Exam ENT Exam: Mucous Membranes Moist - Respiratory Exam Respiratory Exam: NORMAL BREATHING PATTERN - Cardiovascular Exam Cardiovascular Exam: +S1, +S2 - GI/Abdominal Exam GI & Abdominal Exam: Soft - Neurological Exam Neurological Exam: Alert, Awake, Oriented x3 - Psychiatric Exam Psychiatric exam: Normal Mood - Skin Skin Exam: Dry, Intact, Warm Assessment and Plan - Assessment and Plan (Free Text) Assessment: 61M w/ cholangitis-resolved, s/p laparoscopic cholecystectomy POD1 Plan: -F/u AM labs -low fat diet -c/w abx -resume anticoagulation -encourage incentive spirometer use -OOB, encourage ambulation -D/w Dr. Prosper Avery PGY2
--- NOTE | 2017-06-01 11:49 | CP.PCM.PN ---
Subjective - Date & Time of Evaluation Date of Evaluation: 06/01/17 Time of Evaluation: 11:48 - Subjective Subjective: pt doing well this am +flatus no BM yet HD stable tolerating po Objective - Vital Signs/Intake and Output Vital Signs (last 24 hours): Temp Pulse Resp BP Pulse Ox 97.6 F 75 16 106/69 96 06/01/17 08:00 06/01/17 08:00 06/01/17 08:00 06/01/17 08:00 06/01/17 08:00 - Medications Medications: Current Medications Acetaminophen (Tylenol 325 Mg Supp) 325 mg [place] Q6 PRN PRN Reason: Fever >100.4 F Last Admin: 05/28/17 00:52 Dose: 325 mg Famotidine (Pepcid) 20 mg IVP DAILY [facility] Last Admin: 06/01/17 09:02 Dose: 20 mg Heparin Sodium (Porcine) (Heparin) 5,000 units SC Q12 TRACI PRN Reason: Protocol Last Admin: 06/01/17 09:03 Dose: 5,000 units Piperacillin Sod/Tazobactam (Sod 3.375 gm/ Sodium Chloride) 100 mls @ 100 mls/ hr IVPB Q6 TRACI PRN Reason: Protocol Last Admin: 06/01/17 09:01 Dose: 100 mls/hr Sodium Chloride (Sodium Chloride 0.9%) 1,000 mls @ 100 mls/hr IV .Q10H [facility] Last Admin: 06/01/17 00:25 Dose: 100 mls/hr Morphine Sulfate (Morphine) 4 mg IVP Q4 PRN PRN Reason: Pain, severe (8-10) Last Admin: 05/31/17 05:07 Dose: 4 mg Ondansetron HCl (Zofran Inj) 4 mg IVP Q4 PRN PRN Reason: Nausea/Vomiting Oxycodone/Acetaminophen (Percocet 5/325 Mg Tab) 1 tab PO Q4 PRN PRN Reason: Pain, moderate (4-7) Stop: 06/03/17 14:22 Last Admin: 06/01/17 05:22 Dose: 1 tab - Labs Labs: 06/01/17 06:04 06/01/17 06:04 PT 12.2 Seconds (9.8-13.1) 05/30/17 04:45 INR 1.1 (0.9-1.2) 05/30/17 04:45 APTT 33.1 Seconds (25.6-37.1) 05/30/17 04:45 - Constitutional Appears: Non-toxic, No Acute Distress - Head Exam Head Exam: ATRAUMATIC, NORMOCEPHALIC - Eye Exam Eye Exam: EOMI, Normal appearance, PERRL - ENT Exam ENT Exam: Mucous Membranes Moist, Normal Oropharynx - Respiratory Exam Respiratory Exam: Clear to Ausculation Bilateral, NORMAL BREATHING PATTERN - Cardiovascular Exam Cardiovascular Exam: REGULAR RHYTHM, +S1, +S2 - GI/Abdominal Exam GI & Abdominal Exam: Soft, Normal Bowel Sounds - Extremities Exam Extremities Exam: Full ROM, Normal Capillary Refill - Back Exam Back Exam: absent: CVA tenderness (L), CVA tenderness (R) - Neurological Exam Neurological Exam: Alert, Awake - Psychiatric Exam Psychiatric exam: Normal Affect, Normal Mood - Skin Skin Exam: Dry, Warm Assessment and Plan - Assessment and Plan (Free Text) Plan: 61 y/o gent, no significant PMH , came in because of abdominal pain mainly on the epigastric and RUQ , accompanied by N/V, and fever. Labs showed Leukocytosis and abn LFTs. Pt started on IV antibiotics CT of the abdomen: negative MRCP:Findings consistent with acute cholecystitis. No evidence of choledocholithiasis or biliary obstruction. GI and Surgery consulted. Pt underwent ERCP on 05/28 : noted pus in CBD 05/30 : pt went for Lap Cholecystectomy 1. Acute Cholangitis/Cholecystitis s/p Lap Chantal s/p ERCP transferred to ICU for close monitoring 2/2 hypotension- now in Tele and doing well post op cont IVF hydration cont IV Zosyn - needs total 2 wks antibiotics as discussed with Dr Damon ( will change to PO on discharge) s/p ERCP : noted pus in CBD Surgery consulted and pt went for Lap Chantal today Pain mgt Transfer to Med Surg now on Clear liquid diet and tolerating
[2017-06-02] MEDS: Morphine 4 MG/ML VIAL IVP PRN (02:10)
[2017-06-02] MEDS: Piperacillin/Tazobact 3.375 GM in Sodium Chloride 0.9% 100 ML IVPB SCH ×4 (04:15→21:30)
--- NOTE | 2017-06-02 07:45 | CP.PCM.PN ---
Subjective - Date & Time of Evaluation Date of Evaluation: 06/02/17 Time of Evaluation: 06:30 - Subjective Subjective: Patient seen and examined. No acute events over night. Patient tolerating liquids. States abdominal pain is slightly better. Review of vitals is normal. Objective - Vital Signs/Intake and Output Vital Signs (last 24 hours): Temp Pulse Resp BP Pulse Ox 98.5 F 82 16 101/66 95 06/02/17 05:00 06/02/17 05:00 06/02/17 05:00 06/02/17 05:00 06/02/17 05:00 - Medications Medications: Current Medications Acetaminophen (Tylenol 325 Mg Supp) 325 mg [place] Q6 PRN PRN Reason: Fever >100.4 F Last Admin: 05/28/17 00:52 Dose: 325 mg Famotidine (Pepcid) 20 mg IVP DAILY [facility] Last Admin: 06/01/17 09:02 Dose: 20 mg Heparin Sodium (Porcine) (Heparin) 5,000 units SC Q12 TRACI PRN Reason: Protocol Last Admin: 06/01/17 21:18 Dose: 5,000 units Piperacillin Sod/Tazobactam (Sod 3.375 gm/ Sodium Chloride) 100 mls @ 100 mls/ hr IVPB Q6 TRACI PRN Reason: Protocol Last Admin: 06/02/17 04:15 Dose: 100 mls/hr Morphine Sulfate (Morphine) 4 mg IVP Q4 PRN PRN Reason: Pain, severe (8-10) Last Admin: 06/02/17 02:10 Dose: 4 mg Ondansetron HCl (Zofran Inj) 4 mg IVP Q4 PRN PRN Reason: Nausea/Vomiting Oxycodone/Acetaminophen (Percocet 5/325 Mg Tab) 1 tab PO Q4 PRN PRN Reason: Pain, moderate (4-7) Stop: 06/03/17 14:22 Last Admin: 06/01/17 17:36 Dose: 1 tab - Labs Labs: 06/01/17 06:04 06/01/17 06:04 PT 12.2 Seconds (9.8-13.1) 05/30/17 04:45 INR 1.1 (0.9-1.2) 05/30/17 04:45 APTT 33.1 Seconds (25.6-37.1) 05/30/17 04:45 - Constitutional Appears: No Acute Distress - Head Exam Head Exam: NORMOCEPHALIC - Eye Exam Eye Exam: EOMI, Normal appearance - ENT Exam ENT Exam: Mucous Membranes Moist - Cardiovascular Exam Cardiovascular Exam: +S1, +S2 - GI/Abdominal Exam GI & Abdominal Exam: Soft, Tenderness Additional comments: RUQ tenderness - Neurological Exam Neurological Exam: Alert, Awake, Oriented x3 - Psychiatric Exam Psychiatric exam: Normal Mood - Skin Skin Exam: Dry, Intact, Normal Color, Warm Assessment and Plan - Assessment and Plan (Free Text) Assessment: 61M w/ cholangitis-resolved, s/p laparoscopic cholecystectomy POD1 Plan: -F/u AM labs -resume low fat diet -c/w abx -Will need abx therapy for a total of 2 weeks -resume anticoagulation -encourage incentive spirometer use -OOB, encourage ambulation -D/w Dr. Prosper Avery PGY2
[2017-06-02 09:53] LABS: BASO # 0.1 K/uL (0.0-0.2); BASO % 0.6 % (0.0-2.0); EOS # 0.5 K/uL (0.0-0.7); EOS % 2.9 % (0.0-4.0); HEMOGLOBIN 13.1 g/dL (12.0-18.0); LYMPH # 2.6 K/uL (1.0-4.3); LYMPH % 16.8 % (20.0-40.0); MEAN CELL VOLUME 92.6 fl (80.0-94.0); MEAN CORPUSCULAR HEMOGLOBIN 31.1 pg (27.0-31.0); MEAN CORPUSCULAR HGB CONC 33.6 g/dL (33.0-37.0); MEAN PLATELET VOLUME 7.8 fl (7.2-11.7); MONO # 1.1 K/uL (0.0-0.8); MONO % 7.1 % (0.0-10.0); NEUT # 11.3 K/uL (1.8-7.0); NEUT % 72.6 % (50.0-75.0); RBC 4.2 Mil/uL (4.40-5.90); RED CELL DISTRIBUTION WIDTH 14.4 % (11.5-14.5); WHITE BLOOD COUNT 15.6 K/uL (4.8-10.8)
[2017-06-02 10:06] LABS: ALB/GLOB RATIO 0.8 (1.0-2.1); ALBUMIN 3.4 g/dL (3.5-5.0); ALT/SGPT 127 U/L (21-72); AST/SGOT 105 U/L (17-59); BLOOD UREA NITROGEN 11 mg/dl (9-20); GFR AFRICAN-AMERICAN > 60; GFR NON-AFRICAN AMERICAN > 60
[2017-06-02] MEDS ORDERED: Iohexol 240 (50 ml) PO ONE (11:01)
--- NOTE | 2017-06-02 16:08 | CP.PCM.PN ---
Subjective - Date & Time of Evaluation Date of Evaluation: 06/02/17 Time of Evaluation: 16:06 - Subjective Subjective: pain improving LFTs worsening for CTAP IVPO today hd stable nad Objective - Vital Signs/Intake and Output Vital Signs (last 24 hours): Temp Pulse Resp BP Pulse Ox 98.8 F 85 16 107/71 95 06/02/17 16:04 06/02/17 16:04 06/02/17 16:04 06/02/17 16:04 06/02/17 16:04 - Medications Medications: Current Medications Acetaminophen (Tylenol 325 Mg Supp) 325 mg [place] Q6 PRN PRN Reason: Fever >100.4 F Last Admin: 05/28/17 00:52 Dose: 325 mg Famotidine (Pepcid) 20 mg IVP DAILY [facility] Last Admin: 06/02/17 08:49 Dose: 20 mg Heparin Sodium (Porcine) (Heparin) 5,000 units SC Q12 TRACI PRN Reason: Protocol Last Admin: 06/02/17 08:47 Dose: 5,000 units Piperacillin Sod/Tazobactam (Sod 3.375 gm/ Sodium Chloride) 100 mls @ 100 mls/ hr IVPB Q6 [facility]I PRN Reason: Protocol Last Admin: 06/02/17 09:30 Dose: 100 mls/hr Ondansetron HCl (Zofran Inj) 4 mg IVP Q4 PRN PRN Reason: Nausea/Vomiting Oxycodone/Acetaminophen (Percocet 5/325 Mg Tab) 1 tab PO Q4 PRN PRN Reason: Pain, moderate (4-7) Stop: 06/03/17 14:22 Last Admin: 06/01/17 17:36 Dose: 1 tab - Labs Labs: 06/02/17 07:48 06/02/17 07:48 PT 12.2 Seconds (9.8-13.1) 05/30/17 04:45 INR 1.1 (0.9-1.2) 05/30/17 04:45 APTT 33.1 Seconds (25.6-37.1) 05/30/17 04:45 - Constitutional Appears: Non-toxic, No Acute Distress - Head Exam Head Exam: ATRAUMATIC, NORMOCEPHALIC - Eye Exam Eye Exam: EOMI, Normal appearance - ENT Exam ENT Exam: Mucous Membranes Moist, Normal Oropharynx - Neck Exam Neck Exam: Full ROM, Normal Inspection - Respiratory Exam Respiratory Exam: Clear to Ausculation Bilateral, NORMAL BREATHING PATTERN - Cardiovascular Exam Cardiovascular Exam: RRR, +S1, +S2 - GI/Abdominal Exam GI & Abdominal Exam: Soft, Normal Bowel Sounds - Extremities Exam Extremities Exam: Full ROM, Normal Capillary Refill - Back Exam Back Exam: absent: CVA tenderness (L), CVA tenderness (R) - Neurological Exam Neurological Exam: Alert, Awake - Psychiatric Exam Psychiatric exam: Normal Affect, Normal Mood - Skin Skin Exam: Dry, Warm Assessment and Plan - Assessment and Plan (Free Text) Plan: 61 y/o gent, no significant PMH , came in because of abdominal pain mainly on the epigastric and RUQ , accompanied by N/V, and fever. Labs showed Leukocytosis and abn LFTs. Pt started on IV antibiotics CT of the abdomen: negative MRCP:Findings consistent with acute cholecystitis. No evidence of choledocholithiasis or biliary obstruction. GI and Surgery consulted. Pt underwent ERCP on 05/28 : noted pus in CBD 05/30 : pt went for Lap Cholecystectomy 1. Acute Cholangitis/Cholecystitis s/p Lap Chantal s/p ERCP transferred to ICU for close monitoring 2/2 hypotension- now in Tele and doing well post op tolerating PO cont IV Zosyn - needs total 2 wks antibiotics as discussed with Dr Damon ( will change to PO on discharge) s/p ERCP : noted pus in CBD Surgery consulted and pt went for Lap Chantal Pain mgt Transfer to Med Surg now on Clear liquid diet and tolerating 2. Transaminitis worsening CTAP today
[2017-06-02] MEDS ORDERED: Iohexol 300 100 ML IJ ONE (17:40)
[2017-06-03] MEDS: Oxycodone/Acetaminophen 5/325 mg Tab PO PRN (01:14)
[2017-06-03] MEDS: Piperacillin/Tazobact 3.375 GM in Sodium Chloride 0.9% 100 ML IVPB SCH ×4 (04:17→21:27)
--- NOTE | 2017-06-03 08:14 | CP.PCM.PN ---
Subjective - Date & Time of Evaluation Date of Evaluation: 06/03/17 Time of Evaluation: 08:12 - Subjective Subjective: SURGERY NOTE FOR DR. COX 61M seen and examined at bedside. Patient states pain is much improved, denies nausea, vomiting, fevers, chills. Tolerating diet. Objective - Vital Signs/Intake and Output Vital Signs (last 24 hours): Temp Pulse Resp BP Pulse Ox 97.8 F 79 18 114/73 95 06/03/17 08:00 06/03/17 08:00 06/03/17 08:00 06/03/17 08:00 06/03/17 08:00 - Medications Medications: Current Medications Acetaminophen (Tylenol 325 Mg Supp) 325 mg [place] Q6 PRN PRN Reason: Fever >100.4 F Last Admin: 05/28/17 00:52 Dose: 325 mg Famotidine (Pepcid) 20 mg IVP DAILY [facility] Last Admin: 06/02/17 08:49 Dose: 20 mg Heparin Sodium (Porcine) (Heparin) 5,000 units SC Q12 [facility] PRN Reason: Protocol Last Admin: 06/02/17 21:22 Dose: 5,000 units Piperacillin Sod/Tazobactam (Sod 3.375 gm/ Sodium Chloride) 100 mls @ 100 mls/ hr IVPB Q6 [facility] PRN Reason: Protocol Last Admin: 06/03/17 04:17 Dose: 100 mls/hr Ondansetron HCl (Zofran Inj) 4 mg IVP Q4 PRN PRN Reason: Nausea/Vomiting Oxycodone/Acetaminophen (Percocet 5/325 Mg Tab) 1 tab PO Q4 PRN PRN Reason: Pain, moderate (4-7) Stop: 06/03/17 14:22 Last Admin: 06/03/17 01:14 Dose: 1 tab - Labs Labs: 06/02/17 07:48 06/02/17 07:48 PT 12.2 Seconds (9.8-13.1) 05/30/17 04:45 INR 1.1 (0.9-1.2) 05/30/17 04:45 APTT 33.1 Seconds (25.6-37.1) 05/30/17 04:45 - Constitutional Appears: Well, Non-toxic, No Acute Distress - Head Exam Head Exam: ATRAUMATIC - Respiratory Exam Respiratory Exam: Clear to Ausculation Bilateral, NORMAL BREATHING PATTERN - Cardiovascular Exam Cardiovascular Exam: REGULAR RHYTHM, +S1, +S2 - GI/Abdominal Exam GI & Abdominal Exam: Soft, Tenderness (mild tenderness). absent: Bruit, Distended, Firm, Guarding, Rigid, Rebound Additional comments: incisions CDI - Extremities Exam Extremities Exam: absent: Pedal Edema, Tenderness - Neurological Exam Neurological Exam: Alert, Awake - Skin Skin Exam: Dry, Intact, Normal Color, Warm Assessment and Plan - Assessment and Plan (Free Text) Assessment: 61M s/p laparoscopic cholecystectomy POD#4 Plan: Pain control Continue diet Continue antibiotics GI/DVT ppx Further recs discuss with Dr. Prosper Rutledge, PGY2
--- NOTE | 2017-06-03 08:24 | CP.PCM.PN ---
Subjective - Date & Time of Evaluation Date of Evaluation: 06/03/17 Time of Evaluation: 08:24 - Subjective Subjective: pt comfortable in bed, no complaints. explained in detail portal vein thrombosis and need for further anticoagulation and reconsultation of GI. pt expressed understanding. no pain, dyspnea, cp HD stable nad Objective - Vital Signs/Intake and Output Vital Signs (last 24 hours): Temp Pulse Resp BP Pulse Ox 97.8 F 79 18 114/73 95 06/03/17 08:00 06/03/17 08:00 06/03/17 08:00 06/03/17 08:00 06/03/17 08:00 General: awake, alert HEENT: NCAT, PERRL, EOMI HEART: RRR, S1, S2 no MRG LUNG: CTAB, no WRR ABD: soft, NT, ND, no mass, no HSM EXT: warm, well perfused NEURO: awake, alert SKIN: warm, dry PSYCH: normal mood, normal affect - Medications Medications: Current Medications Acetaminophen (Tylenol 325 Mg Supp) 325 mg [place] Q6 PRN PRN Reason: Fever >100.4 F Last Admin: 05/28/17 00:52 Dose: 325 mg Enoxaparin Sodium (Lovenox) 60 mg SC Q12 [facility] PRN Reason: Protocol Famotidine (Pepcid) 20 mg IVP DAILY [facility] Last Admin: 06/02/17 08:49 Dose: 20 mg Piperacillin Sod/Tazobactam (Sod 3.375 gm/ Sodium Chloride) 100 mls @ 100 mls/ hr IVPB Q6 [facility] PRN Reason: Protocol Last Admin: 06/03/17 04:17 Dose: 100 mls/hr Ondansetron HCl (Zofran Inj) 4 mg IVP Q4 PRN PRN Reason: Nausea/Vomiting Oxycodone/Acetaminophen (Percocet 5/325 Mg Tab) 1 tab PO Q4 PRN PRN Reason: Pain, moderate (4-7) Stop: 06/03/17 14:22 Last Admin: 06/03/17 01:14 Dose: 1 tab - Labs Labs: 06/02/17 07:48 06/02/17 07:48 PT 12.2 Seconds (9.8-13.1) 05/30/17 04:45 INR 1.1 (0.9-1.2) 05/30/17 04:45 APTT 33.1 Seconds (25.6-37.1) 05/30/17 04:45 Assessment and Plan - Assessment and Plan (Free Text) Plan: 61 y/o gent, no significant PMH , came in because of abdominal pain mainly on the epigastric and RUQ , accompanied by N/V, and fever. Labs showed Leukocytosis and abn LFTs. Pt started on IV antibiotics CT of the abdomen: negative MRCP:Findings consistent with acute cholecystitis. No evidence of choledocholithiasis or biliary obstruction. GI and Surgery consulted. Pt underwent ERCP on 05/28: noted pus in CBD 05/30: pt went for Lap Cholecystectomy 06/02: noted elevated LFTs, repeat CT showed R portal vein thrombosis. 06/03: heparin drip initiated, discussed with GI and Hematology. HIDA scan for today, ERCP pending results. AC may be adjusted accordingly. 1. Acute Cholangitis/Cholecystitis s/p Lap Chantal s/p ERCP transferred to ICU for close monitoring 2/2 hypotension- now in Tele and doing well post op tolerating PO cont IV Zosyn - needs total 2 wks antibiotics as discussed with Dr Damon ( will change to PO on discharge) s/p ERCP: noted pus in CBD Surgery consulted and pt went for Lap Chantal Pain mgt Transfer to Med Surg now on Clear liquid diet and tolerating 2. R Portal Vein Thrombus heparin drip initiated, discussed with GI and Hematology. HIDA scan for today, ERCP pending results. AC may be adjusted accordingly. Discussed with Hematology Dr. Goel, appreciated and followed.
--- NOTE | 2017-06-03 08:42 | CT ---
PROCEDURE: CT Abdomen and Pelvis with contrast HISTORY: abd pain, elevated wbc, t bili and lfts COMPARISON: CT scan of the abdomen pelvis dated 05/26/2017 TECHNIQUE: Contrast dose: 95 mL Omnipaque 300 Radiation dose: Total exam DLP = 391.1 mGy-cm. This CT exam was performed using one or more of the following dose reduction techniques: Automated exposure control, adjustment of the mA and/or kV according to patient size, and/or use of iterative reconstruction technique. FINDINGS: LOWER THORAX: Trace bilateral pleural effusions with subjacent atelectasis and left lower lobe consolidation. LIVER: Interval thrombosis of anterior branch of right portal vein with relative hyperattenuation of segment 5 and 8 in comparison to remainder of liver. GALLBLADDER AND BILE DUCTS: Interval cholecystectomy with fluid in the gallbladder fossa. Interval pneumobilia. PANCREAS: Unremarkable. No gross lesion or ductal dilatation. SPLEEN: Unremarkable. ADRENALS: Unremarkable. No mass. KIDNEYS AND URETERS: Unremarkable. No hydronephrosis. No solid mass. VASCULATURE: Unremarkable. No aortic aneurysm. BOWEL: Unremarkable. No obstruction. No gross mural thickening. APPENDIX: Normal appendix. PERITONEUM: Unremarkable. No free fluid. Trace pneumoperitoneum best seen underneath the diaphragms. LYMPH NODES: Unremarkable. No enlarged lymph nodes. BLADDER: Unremarkable. REPRODUCTIVE: Unremarkable. BONES: No acute fracture. OTHER FINDINGS: None. IMPRESSION: Interval thrombosis of anterior branch of right portal vein with relative hyperattenuation of segment 5 and 8 in comparison to remainder liver. Interval cholecystectomy with small amount of fluid in the gallbladder fossa and trace pneumoperitoneum. While findings are likely postsurgical, bile leak cannot be entirely excluded. Interval pneumobilia, likely related to recent sphincterotomy and ERCP.
[2017-06-03] MEDS ORDERED: Enoxaparin 60 mg Syringe SC SCH (09:00)
--- NOTE | 2017-06-03 09:04 | CP.PCM.PCO ---
Physician Communication Note - Physician Communication Note Physician Communication Note: Discussed with Dr. Boateng, order stat SHASTAA, NPO, Hematology cs for OAC
--- NOTE | 2017-06-03 10:26 | CP.PCM.PN ---
<Nalini Cardoso - Last Filed: 06/03/17 13:11> Subjective - Date & Time of Evaluation Date of Evaluation: 06/03/17 Time of Evaluation: 10:20 - Subjective Subjective: GI Fellow PGY 4 Progress Note Pt seen and examined at bedside, pt reports no abdominal pain if he is laying still but is very tender on palpation of abdomen. Denies fevers, chills, nausea or vomiting. +BM ROS: A 12pt ROS was negative except as above. Objective - Vital Signs/Intake and Output Vital Signs (last 24 hours): Temp Pulse Resp BP Pulse Ox 97.8 F 79 18 114/73 95 06/03/17 08:00 06/03/17 08:00 06/03/17 08:00 06/03/17 08:00 06/03/17 08:00 - Medications Medications: Current Medications Acetaminophen (Tylenol 325 Mg Supp) 325 mg SD Q6 PRN PRN Reason: Fever >100.4 F Last Admin: 05/28/17 00:52 Dose: 325 mg Enoxaparin Sodium (Lovenox) 60 mg SC Q12 TRACI PRN Reason: Protocol Piperacillin Sod/Tazobactam (Sod 3.375 gm/ Sodium Chloride) 100 mls @ 100 mls/ hr IVPB Q6 TRACI PRN Reason: Protocol Last Admin: 06/03/17 09:19 Dose: 100 mls/hr Ondansetron HCl (Zofran Inj) 4 mg IVP Q4 PRN PRN Reason: Nausea/Vomiting Oxycodone/Acetaminophen (Percocet 5/325 Mg Tab) 1 tab PO Q4 PRN PRN Reason: Pain, moderate (4-7) Stop: 06/03/17 14:22 Last Admin: 06/03/17 01:14 Dose: 1 tab - Labs Labs: 06/02/17 07:48 06/02/17 07:48 PT 12.2 Seconds (9.8-13.1) 05/30/17 04:45 INR 1.1 (0.9-1.2) 05/30/17 04:45 APTT 33.1 Seconds (25.6-37.1) 05/30/17 04:45 - Constitutional Appears: Non-toxic, No Acute Distress - Head Exam Head Exam: ATRAUMATIC, NORMAL INSPECTION, NORMOCEPHALIC - Eye Exam Eye Exam: EOMI, Normal appearance, PERRL - ENT Exam ENT Exam: Mucous Membranes Moist - Neck Exam Neck Exam: Full ROM, Normal Inspection - Respiratory Exam Respiratory Exam: Clear to Ausculation Bilateral, NORMAL BREATHING PATTERN - Cardiovascular Exam Cardiovascular Exam: REGULAR RHYTHM, +S1, +S2 - GI/Abdominal Exam GI & Abdominal Exam: Soft, Tenderness, Normal Bowel Sounds. absent: Distended, Firm, Guarding Additional comments: surgical scars healing - Rectal Exam Rectal Exam: Deferred - Extremities Exam Extremities Exam: Full ROM, Normal Inspection - Neurological Exam Neurological Exam: Alert, Awake, Oriented x3 - Psychiatric Exam Psychiatric exam: Normal Affect, Normal Mood - Skin Skin Exam: Dry, Intact, Normal Color, Warm Assessment and Plan - Assessment and Plan (Free Text) Assessment: This is a 61 yr old male admitted with complaints of abdominal pain. 1. Cholangitis s/p ERCP and bile duct extraction of pus s/p needle knife 05/28/17 2. Cholecystitis s/p laprascopic cholecystectomy 05/30/17 3. Elevated LFTs 4. New thrombus of anterior branch of right portal vein Plan: -Continue supportive care with pain control and anti-emetics - Elevated LFTs concerning for possible bile leak vs possible stone - Ordered stat HIDA scan - NPO for any possible intervention based on HIDA scan results - Continue antibiotics to complete two week course - CT imaging shows new thrombus in right portal vein which can also explain elevated LFTs, possible septic emboli - Recommend Hematology consultation for OAC therapy and further workup - Will continue to follow closely <NelsonOfelialuke - Last Filed: 06/03/17 14:21> Objective - Vital Signs/Intake and Output Vital Signs (last 24 hours): Temp Pulse Resp BP Pulse Ox 97.6 F 84 18 102/68 94 L 06/03/17 12:00 06/03/17 12:00 06/03/17 12:00 06/03/17 12:00 06/03/17 12:00 - Medications Medications: Current Medications Acetaminophen (Tylenol 325 Mg Supp) 325 mg SD Q6 PRN PRN Reason: Fever >100.4 F Last Admin: 05/28/17 00:52 Dose: 325 mg Enoxaparin Sodium (Lovenox) 60 mg SC Q12 TRACI PRN Reason: Protocol Piperacillin Sod/Tazobactam (Sod 3.375 gm/ Sodium Chloride) 100 mls @ 100 mls/ hr IVPB Q6 TRACI PRN Reason: Protocol Last Admin: 06/03/17 09:19 Dose: 100 mls/hr Ondansetron HCl (Zofran Inj) 4 mg IVP Q4 PRN PRN Reason: Nausea/Vomiting Oxycodone/Acetaminophen (Percocet 5/325 Mg Tab) 1 tab PO Q4 PRN PRN Reason: Pain, moderate (4-7) Stop: 06/03/17 14:22 Last Admin: 06/03/17 01:14 Dose: 1 tab - Labs Labs: 06/03/17 09:50 06/03/17 09:50 PT 12.2 Seconds (9.8-13.1) 06/03/17 10:52 INR 1.1 (0.9-1.2) 06/03/17 10:52 APTT 33.1 Seconds (25.6-37.1) 05/30/17 04:45 Attending/Attestation - Attestation I have personally seen and examined this patient.: Yes I have fully participated in the care of the patient.: Yes I have reviewed all pertinent clinical information, including history, physical exam and plan: Yes Notes (Text): 06/03/17 14:16 This is a 61 yr old male admitted with complaints of abdominal pain in setting of cholangitis s/p ERCP/ needle knife and bile duct pus extraction and s/p laprascopic cholecystectomy now with new onset elevated LFT and new thrombus in right portal vein. CTAP reviewed- fluid around GB fossa. Concern for bile leak. Pending HIDA scan and further recommendations for ERCP will be determined on HIDA scan results. Also with new onset PV thrombus likely septic emboli. Reqquires hematology consult to evaluate for anti coagulation. Continue supportive care with pain control and anti-emetics. Keep NPO for any possible intervention based on HIDA scan results. Continue antibiotics to complete two week course. Will give further recommendations based on HIDA
[2017-06-03 10:42] LABS: BASO # 0.1 K/uL (0.0-0.2); EOS # 1.2 K/uL (0.0-0.7); EOS % 9.7 % (0.0-4.0); HEMOGLOBIN 12.8 g/dL (12.0-18.0); LYMPH # 2.3 K/uL (1.0-4.3); LYMPH % 18.2 % (20.0-40.0); MEAN CELL VOLUME 92.2 fl (80.0-94.0); MEAN CORPUSCULAR HEMOGLOBIN 31.5 pg (27.0-31.0); MEAN CORPUSCULAR HGB CONC 34.1 g/dL (33.0-37.0); MEAN PLATELET VOLUME 7.2 fl (7.2-11.7); MONO # 0.8 K/uL (0.0-0.8); MONO % 6.4 % (0.0-10.0); NEUT # 8.3 K/uL (1.8-7.0); NEUT % 64.7 % (50.0-75.0); NRBC % 0.1 % (0.0-0.0); RBC 4.06 Mil/uL (4.40-5.90); RED CELL DISTRIBUTION WIDTH 14.2 % (11.5-14.5); WHITE BLOOD COUNT 12.9 K/uL (4.8-10.8)
[2017-06-03 10:58] LABS: ALB/GLOB RATIO 0.8 (1.0-2.1); ALBUMIN 3.4 g/dL (3.5-5.0); ALT/SGPT 141 U/L (21-72); AST/SGOT 105 U/L (17-59); BLOOD UREA NITROGEN 13 mg/dl (9-20); CALCIUM 9.2 mg/dL (8.4-10.2); GFR AFRICAN-AMERICAN > 60; GFR NON-AFRICAN AMERICAN > 60
[2017-06-03 12:46] LABS: INR 1.1 (0.9-1.2); PROTHROMBIN TIME 12.2 Seconds (9.8-13.1)
[2017-06-03] MEDS ORDERED: Heparin 25,000units in D5W 25,000 UNITS/250 ML BAG IV SCH (15:45)
--- NOTE | 2017-06-03 16:48 | NM ---
PROCEDURE: Nuclear Medicine Hepatobiliary Scan HISTORY: Bile leak. Relevant surgical history: Cholecystectomy May 2017 COMPARISON: None available. TECHNIQUE: 5.66 mCi of technetium 99m Mebrofenin was administered intravenously. Planar images of the abdomen were obtained at 5 min intervals to 60 mins. Delayed images were also obtained. FINDINGS: LIVER: Timely and homogenous uptake. COMMON BILE DUCT: identified at 5 mins. GALLBLADDER: Prior cholecystectomy. No abnormalities in the gallbladder fossa to suggest bile leak. SMALL BOWEL: Identified at 10 mins. IMPRESSION: Status post cholecystectomy. Prompt visualization of radionuclide in the common bile duct and small bowel at 5 and 10 minutes respectively. No visible bile leak.
[2017-06-03 17:34] LABS: HEMOGLOBIN 12.8 g/dL (12.0-18.0); MEAN CELL VOLUME 92.5 fl (80.0-94.0); MEAN CORPUSCULAR HEMOGLOBIN 31.1 pg (27.0-31.0); MEAN CORPUSCULAR HGB CONC 33.6 g/dL (33.0-37.0); RBC 4.11 Mil/uL (4.40-5.90); RED CELL DISTRIBUTION WIDTH 14.2 % (11.5-14.5); WHITE BLOOD COUNT 14.7 K/uL (4.8-10.8)
[2017-06-03] MEDS: Heparin 25,000units in D5W 25,000 UNITS/250 ML BAG IV SCH (19:42)
[2017-06-04] MEDS: Piperacillin/Tazobact 3.375 GM in Sodium Chloride 0.9% 100 ML IVPB SCH ×4 (03:58→21:26)
[2017-06-04 05:46] LABS: BASO # 0.1 K/uL (0.0-0.2); EOS # 1.2 K/uL (0.0-0.7); EOS % 8.8 % (0.0-4.0); HEMOGLOBIN 12.4 g/dL (12.0-18.0); LYMPH # 2.6 K/uL (1.0-4.3); LYMPH % 18.5 % (20.0-40.0); MEAN CELL VOLUME 91.9 fl (80.0-94.0); MEAN CORPUSCULAR HEMOGLOBIN 31.1 pg (27.0-31.0); MEAN CORPUSCULAR HGB CONC 33.8 g/dL (33.0-37.0); MEAN PLATELET VOLUME 7.1 fl (7.2-11.7); MONO # 0.9 K/uL (0.0-0.8); MONO % 6.3 % (0.0-10.0); NEUT # 9.2 K/uL (1.8-7.0); NEUT % 65.4 % (50.0-75.0); RBC 4.01 Mil/uL (4.40-5.90); RED CELL DISTRIBUTION WIDTH 14.5 % (11.5-14.5)
[2017-06-04 05:54] LABS: INR 1.2 (0.9-1.2)
[2017-06-04 06:04] LABS: ALB/GLOB RATIO 0.8 (1.0-2.1); ALBUMIN 3.4 g/dL (3.5-5.0); ALT/SGPT 129 U/L (21-72); AST/SGOT 85 U/L (17-59); BLOOD UREA NITROGEN 16 mg/dl (9-20); CALCIUM 9.1 mg/dL (8.4-10.2); GFR AFRICAN-AMERICAN > 60; GFR NON-AFRICAN AMERICAN > 60
--- NOTE | 2017-06-04 07:08 | CP.PCM.PN ---
<Nalini Cardoso - Last Filed: 06/04/17 13:12> Subjective - Date & Time of Evaluation Date of Evaluation: 06/04/17 Time of Evaluation: 06:50 - Subjective Subjective: GI Fellow PGY 4 Progress Note Pt seen and examined at bedside, pt reports mild abdominal pain on exam. Denies fevers, chills, nausea or vomiting. +BM ROS: A 12pt ROS was negative except as above. Objective - Vital Signs/Intake and Output Vital Signs (last 24 hours): Temp Pulse Resp BP Pulse Ox 98.5 F 77 18 100/68 94 L 06/04/17 05:00 06/04/17 05:00 06/04/17 05:00 06/04/17 05:00 06/04/17 05:00 Intake and Output: 06/04/17 06/04/17 06:59 18:59 Intake Total 85 Balance 85 - Medications Medications: Current Medications Acetaminophen (Tylenol 325 Mg Supp) 325 mg [place] Q6 PRN PRN Reason: Fever >100.4 F Last Admin: 05/28/17 00:52 Dose: 325 mg Enoxaparin Sodium (Lovenox) 60 mg SC Q12 TRACI PRN Reason: Protocol Piperacillin Sod/Tazobactam (Sod 3.375 gm/ Sodium Chloride) 100 mls @ 100 mls/ hr IVPB Q6 TRACI PRN Reason: Protocol Last Admin: 06/04/17 03:58 Dose: 100 mls/hr Heparin Sodium/Dextrose (Heparin 25,000 Units/250ml In D5w) 25,000 units in 250 mls @ 10 mls/hr IV .Q24H TRACI; Per Protocol PRN Reason: Protocol Last Titration: 06/04/17 02:11 Dose: 12 mls/hr Ondansetron HCl (Zofran Inj) 4 mg IVP Q4 PRN PRN Reason: Nausea/Vomiting Warfarin Sodium (Coumadin) 5 mg PO ONCE ONE PRN Reason: Protocol Stop: 06/04/17 17:53 - Labs Labs: 06/04/17 04:20 06/04/17 04:20 PT 13.0 Seconds (9.8-13.1) 06/04/17 04:20 INR 1.2 (0.9-1.2) 06/04/17 04:20 APTT 46.9 Seconds (25.6-37.1) H D 06/04/17 01:15 - Constitutional Appears: Non-toxic, No Acute Distress - Head Exam Head Exam: ATRAUMATIC, NORMAL INSPECTION, NORMOCEPHALIC - Eye Exam Eye Exam: EOMI, Normal appearance, PERRL Pupil Exam: NORMAL ACCOMODATION - ENT Exam ENT Exam: Mucous Membranes Moist - Neck Exam Neck Exam: Full ROM, Normal Inspection - Respiratory Exam Respiratory Exam: Clear to Ausculation Bilateral, NORMAL BREATHING PATTERN - Cardiovascular Exam Cardiovascular Exam: REGULAR RHYTHM, +S1, +S2 - GI/Abdominal Exam GI & Abdominal Exam: Soft, Tenderness, Normal Bowel Sounds. absent: Distended, Guarding, Organomegaly - Rectal Exam Rectal Exam: Deferred - Extremities Exam Extremities Exam: Full ROM, Normal Inspection - Neurological Exam Neurological Exam: Alert, Awake, Oriented x3 - Psychiatric Exam Psychiatric exam: Normal Affect, Normal Mood - Skin Skin Exam: Dry, Intact, Normal Color, Warm Assessment and Plan - Assessment and Plan (Free Text) Assessment: This is a 61 yr old male admitted with complaints of abdominal pain. 1. Cholangitis s/p ERCP and bile duct extraction of sludge s/p needle knife 2. Cholecystitis s/p laprascopic cholecystectomy 05/30/17 3. Elevated LFTs 4. New thrombus of anterior branch of right portal vein Plan: -Continue supportive care with pain control and anti-emetics - Elevated LFTs trending down - HIDA scan negative for bile leak - Diet as tolerated - Continue antibiotics to complete two week course - CT imaging shows new thrombus in right portal vein - Continue IV Heparin and Coumadin further recommendations per Hematology consultation - Please call with any questions or concerns <Catherine Damon - Last Filed: 06/04/17 14:56> Objective - Vital Signs/Intake and Output Vital Signs (last 24 hours): Temp Pulse Resp BP Pulse Ox 98.4 F 83 18 102/68 94 L 06/04/17 12:00 06/04/17 12:00 06/04/17 12:00 06/04/17 12:00 06/04/17 12:00 Intake and Output: 06/04/17 06/04/17 06:59 18:59 Intake Total 85 Balance 85 - Medications Medications: Current Medications Acetaminophen (Tylenol 325 Mg Supp) 325 mg [place] Q6 PRN PRN Reason: Fever >100.4 F Last Admin: 05/28/17 00:52 Dose: 325 mg Enoxaparin Sodium (Lovenox) 60 mg SC Q12 TRACI PRN Reason: Protocol Piperacillin Sod/Tazobactam (Sod 3.375 gm/ Sodium Chloride) 100 mls @ 100 mls/ hr IVPB Q6 TRACI PRN Reason: Protocol Last Admin: 06/04/17 10:20 Dose: 100 mls/hr Heparin Sodium/Dextrose (Heparin 25,000 Units/250ml In D5w) 25,000 units in 250 mls @ 10 mls/hr IV .Q24H TRACI; Per Protocol PRN Reason: Protocol Last Titration: 06/04/17 02:11 Dose: 12 mls/hr Ondansetron HCl (Zofran Inj) 4 mg IVP Q4 PRN PRN Reason: Nausea/Vomiting Warfarin Sodium (Coumadin) 5 mg PO ONCE ONE PRN Reason: Protocol Stop: 06/04/17 17:53 - Labs Labs: 06/04/17 04:20 06/04/17 04:20 PT 13.0 Seconds (9.8-13.1) 06/04/17 04:20 INR 1.2 (0.9-1.2) 06/04/17 04:20 APTT 69.0 Seconds (25.6-37.1) H D 06/04/17 07:51 Attending/Attestation - Attestation I have personally seen and examined this patient.: Yes I have fully participated in the care of the patient.: Yes I have reviewed all pertinent clinical information, including history, physical exam and plan: Yes Notes (Text): 06/04/17 14:23 This is a 61 yr old M admitted with cholangitis s/p needle knife bile duct pus extraction and s/p cholecystectomy with new elevation of LFT likely from pyeliphlebitis and PVT thrombus. Will continue antibiotics and anti coagulation as indicated by strawhat inspector and packer. Trend daily LFT and fever curve. Hepatitis serologies are negative. Diet as tolerated. Will sign off now as patient does not require ERCP as HIDA is negative for bile leak. Thank you for letting us participate in the care of your patient. Discussed with the hospitalist and Dr Cheng
--- NOTE | 2017-06-04 07:51 | CP.PCM.PN ---
Subjective - Date & Time of Evaluation Date of Evaluation: 06/04/17 Time of Evaluation: 07:49 - Subjective Subjective: SURGERY NOTE FOR DR. COX 61M seen and examined at bedside. Patient states he is feeling better, pain is mild, denies nausea/vomiting, tolerating diet. Objective - Vital Signs/Intake and Output Vital Signs (last 24 hours): Temp Pulse Resp BP Pulse Ox 98.5 F 74 18 102/69 95 06/04/17 07:43 06/04/17 07:43 06/04/17 07:43 06/04/17 07:43 06/04/17 07:43 Intake and Output: 06/04/17 06/04/17 06:59 18:59 Intake Total 85 Balance 85 - Medications Medications: Current Medications Acetaminophen (Tylenol 325 Mg Supp) [address] Q6 PRN PRN Reason: Fever >100.4 F Last Admin: 05/28/17 00:52 Dose: 325 mg Enoxaparin Sodium (Lovenox) 60 mg SC Q12 TRACI PRN Reason: Protocol Piperacillin Sod/Tazobactam (Sod 3.375 gm/ Sodium Chloride) 100 mls @ 100 mls/ hr IVPB Q6 TRACI PRN Reason: Protocol Last Admin: 06/04/17 03:58 Dose: 100 mls/hr Heparin Sodium/Dextrose (Heparin 25,000 Units/250ml In D5w) 25,000 units in 250 mls @ 10 mls/hr IV .Q24H TRACI; Per Protocol PRN Reason: Protocol Last Titration: 06/04/17 02:11 Dose: 12 mls/hr Ondansetron HCl (Zofran Inj) 4 mg IVP Q4 PRN PRN Reason: Nausea/Vomiting Warfarin Sodium (Coumadin) 5 mg PO ONCE ONE PRN Reason: Protocol Stop: 06/04/17 17:53 - Labs Labs: 06/04/17 04:20 06/04/17 04:20 PT 13.0 Seconds (9.8-13.1) 06/04/17 04:20 INR 1.2 (0.9-1.2) 06/04/17 04:20 APTT 46.9 Seconds (25.6-37.1) H D 06/04/17 01:15 - Constitutional Appears: Well, Non-toxic, No Acute Distress - Respiratory Exam Respiratory Exam: Clear to Ausculation Bilateral, NORMAL BREATHING PATTERN - Cardiovascular Exam Cardiovascular Exam: REGULAR RHYTHM, +S1, +S2 - GI/Abdominal Exam GI & Abdominal Exam: Soft, Tenderness (especially RUQ, incisions CDI). absent: Distended, Firm, Guarding, Rigid, Rebound - Neurological Exam Neurological Exam: Alert, Awake, Oriented x3 - Psychiatric Exam Psychiatric exam: Normal Affect, Normal Mood - Skin Skin Exam: Dry, Intact, Normal Color, Warm Assessment and Plan - Assessment and Plan (Free Text) Assessment: 61M s/p Laparoscopic cholecystectomy POD5 Plan: HIDA negative for leak GI plan ERCP today f/u Hem recs Further recs discuss with Dr. Prosper Rutledge, PGY2
--- NOTE | 2017-06-04 12:37 | CP.PCM.CON ---
History of Present Illness - History of Present Illness History of Present Illness: 61 year old male admitted with abdominal pain, found to have acute cholecystitis s/p cholecystectomy, found to have right portal vein thrombus. The patient denies abnormal bleeding and clotting problems. He is currently on a heparin drip and reports to feeling better. Past medical history: None Past surgical history: None Family history: Denies hematologic and oncologic problems Social history: Denies tobacco, alcohol, and illicit drug use. Allergies: NKA Review of systems: All remaining review of systems including HEENT, cardiovascular, respiratory, gastronintestinal, genitourinary, musculoskeletal, dermatologic, neurologic, and psychiatric are negative unless mentioned in the HPI. Past Patient History - Past Medical History & Family History Past Medical History?: No - Past Social History Smoking Status: Never Smoked - CARDIAC Hx Cardiac Disorders: No - PULMONARY Hx Respiratory Disorders: No - NEUROLOGICAL Hx Neurological Disorder: No - HEENT Hx HEENT Problems: No - RENAL Hx Chronic Kidney Disease: No - ENDOCRINE/METABOLIC Hx Endocrine Disorders: No - HEMATOLOGICAL/ONCOLOGICAL Hx Blood Disorders: No - INTEGUMENTARY Hx Dermatological Problems: No - MUSCULOSKELETAL/RHEUMATOLOGICAL Hx Musculoskeletal Disorders: No Hx Falls: No - GASTROINTESTINAL Hx Gastrointestinal Disorders: No Hx Hemorrhoids: No - GENITOURINARY/GYNECOLOGICAL Hx Genitourinary Disorders: No - PSYCHIATRIC Hx Psychophysiologic Disorder: No Hx Substance Use: No - SURGICAL HISTORY Hx Surgeries: No - ANESTHESIA Hx Anesthesia: No Hx Anesthesia Reactions: No Hx Malignant Hyperthermia: No Has any member of the family had a problem w/ anesthesia?: No Meds Allergies/Adverse Reactions: Allergies Allergy/AdvReac Type Severity Reaction Status Date / Time No Known Allergies Allergy Verified 05/26/17 17:01 - Medications Medications: Current Medications Acetaminophen (Tylenol 325 Mg Supp) 325 mg [place] Q6 PRN PRN Reason: Fever >100.4 F Last Admin: 05/28/17 00:52 Dose: 325 mg Enoxaparin Sodium (Lovenox) 60 mg SC Q12 TRACI PRN Reason: Protocol Piperacillin Sod/Tazobactam (Sod 3.375 gm/ Sodium Chloride) 100 mls @ 100 mls/ hr IVPB Q6 TRACI PRN Reason: Protocol Last Admin: 06/04/17 10:20 Dose: 100 mls/hr Heparin Sodium/Dextrose (Heparin 25,000 Units/250ml In D5w) 25,000 units in 250 mls @ 10 mls/hr IV .Q24H TRACI; Per Protocol PRN Reason: Protocol Last Titration: 06/04/17 02:11 Dose: 12 mls/hr Ondansetron HCl (Zofran Inj) 4 mg IVP Q4 PRN PRN Reason: Nausea/Vomiting Warfarin Sodium (Coumadin) 5 mg PO ONCE ONE PRN Reason: Protocol Stop: 06/04/17 17:53 Physical Exam - Head Exam Head Exam: ATRAUMATIC - Eye Exam Eye Exam: Normal appearance - ENT Exam ENT Exam: Mucous Membranes Dry - Respiratory Exam Respiratory Exam: NORMAL BREATHING PATTERN - Cardiovascular Exam Cardiovascular Exam: +S1, +S2 - GI/Abdominal Exam GI & Abdominal Exam: Normal Bowel Sounds - Extremities Exam Extremities exam: Positive for: normal inspection - Neurological Exam Neurological exam: Oriented x3 - Psychiatric Exam Psychiatric exam: Normal Affect, Normal Mood - Skin Skin Exam: Warm Results - Vital Signs Recent Vital Signs: Last Vital Signs Temp 98.4 F 06/04/17 12:00 Pulse 83 06/04/17 12:00 Resp 18 06/04/17 12:00 BP 102/68 06/04/17 12:00 Pulse Ox 94 L 06/04/17 12:00 - Labs Result Diagrams: 06/06/17 05:30 06/06/17 05:30 Labs: Laboratory Results - last 24 hr 06/03/17 06/03/17 06/03/17 10:52 17:25 17:25 WBC 14.7 H RBC 4.11 L Hgb 12.8 Hct 38.0 MCV 92.5 MCH 31.1 H MCHC 33.6 RDW 14.2 Plt Count 697 H MPV Neut % (Auto) Lymph % (Auto) [place] % (Auto) Eos % (Auto) Baso % (Auto) Neut # (Auto) Lymph # (Auto) [place] # (Auto) Eos # (Auto) Baso # (Auto) PT 12.2 INR 1.1 APTT 35.3 Sodium Potassium Chloride Carbon Dioxide Anion Gap BUN Creatinine Est GFR ( Amer) Est GFR (Non-Af Amer) Random Glucose Calcium Total Bilirubin AST ALT Alkaline Phosphatase Total Protein Albumin Globulin Albumin/Globulin Ratio 06/04/17 06/04/17 06/04/17 01:15 04:20 04:20 WBC 14.0 H RBC 4.01 L Hgb 12.4 Hct 36.8 MCV 91.9 MCH 31.1 H MCHC 33.8 RDW 14.5 Plt Count 734 H MPV 7.1 L Neut % (Auto) 65.4 Lymph % (Auto) 18.5 L [place] % (Auto) 6.3 Eos % (Auto) 8.8 H Baso % (Auto) 1.0 Neut # (Auto) 9.2 H Lymph # (Auto) 2.6 [place] # (Auto) 0.9 H Eos # (Auto) 1.2 H Baso # (Auto) 0.1 PT INR APTT 46.9 H D Sodium 139 Potassium 3.8 Chloride 101 Carbon Dioxide 22 Anion Gap 20 BUN 16 Creatinine 0.6 L Est GFR ( Amer) > 60 Est GFR (Non-Af Amer) > 60 Random Glucose 136 H Calcium 9.1 Total Bilirubin 1.0 AST 85 H ALT 129 H Alkaline Phosphatase 466 H Total Protein 7.6 Albumin 3.4 L Globulin 4.1 H Albumin/Globulin Ratio 0.8 L 06/04/17 06/04/17 04:20 07:51 WBC RBC Hgb Hct MCV MCH MCHC RDW Plt Count MPV Neut % (Auto) Lymph % (Auto) [place] % (Auto) Eos % (Auto) Baso % (Auto) Neut # (Auto) Lymph # (Auto) [place] # (Auto) Eos # (Auto) Baso # (Auto) PT 13.0 INR 1.2 APTT 69.0 H D Sodium Potassium Chloride Carbon Dioxide Anion Gap BUN Creatinine Est GFR ( Amer) Est GFR (Non-Af Amer) Random Glucose Calcium Total Bilirubin AST ALT Alkaline Phosphatase Total Protein Albumin Globulin Albumin/Globulin Ratio Assessment & Plan (1) Portal vein thrombosis Assessment and Plan: likely provoked from inflammation from acute local illness agree with therapeutic anticoagulation repeat imaging at 3 months to document resolution of clot and discussion on need for continued anticoagulation Status: Acute (2) Anemia Assessment and Plan: mild surgical blood loss will check ferritin, retic coung, b12, folate to further characterize Status: Acute (3) Leukocytosis Assessment and Plan: on antibiotics Status: Acute (4) Coagulopathy Assessment and Plan: anticoagulation Thank you for this interesting consult. Status: Acute
--- NOTE | 2017-06-04 16:22 | CP.PCM.PN ---
Subjective - Date & Time of Evaluation Date of Evaluation: 06/04/17 Time of Evaluation: 08:30 - Subjective Subjective: Patient seen and examined bedside. Feeling a littl ebetter . Complains of some RUQ abdominal pain especially with coughing spells. tolerating Po intkae, denies any nausea or vomiting. Passing f;atus , voiding freely Hemodynamically stable, afebrile. No acute issues overnight HIDA scan negative for leak WBC 14 k Piero 1 AST/ ALT 85/129 Alk Phosph 466 Objective - Vital Signs/Intake and Output Vital Signs (last 24 hours): Temp Pulse Resp BP Pulse Ox 98.7 F 77 18 103/66 93 L 06/04/17 16:09 06/04/17 16:09 06/04/17 16:09 06/04/17 16:09 06/04/17 16:09 Intake and Output: 06/04/17 06/04/17 06:59 18:59 Intake Total 85 Balance 85 - Medications Medications: Current Medications Acetaminophen (Tylenol 325 Mg Supp) 325 mg IN Q6 PRN PRN Reason: Fever >100.4 F Last Admin: 05/28/17 00:52 Dose: 325 mg Enoxaparin Sodium (Lovenox) 60 mg SC Q12 TRACI PRN Reason: Protocol Piperacillin Sod/Tazobactam (Sod 3.375 gm/ Sodium Chloride) 100 mls @ 100 mls/ hr IVPB Q6 TRACI PRN Reason: Protocol Last Admin: 06/04/17 10:20 Dose: 100 mls/hr Heparin Sodium/Dextrose (Heparin 25,000 Units/250ml In D5w) 25,000 units in 250 mls @ 10 mls/hr IV .Q24H TRACI; Per Protocol PRN Reason: Protocol Last Titration: 06/04/17 02:11 Dose: 12 mls/hr Ondansetron HCl (Zofran Inj) 4 mg IVP Q4 PRN PRN Reason: Nausea/Vomiting Warfarin Sodium (Coumadin) 5 mg PO ONCE ONE PRN Reason: Protocol Stop: 06/04/17 17:53 - Labs Labs: 06/04/17 04:20 06/04/17 04:20 PT 13.0 Seconds (9.8-13.1) 06/04/17 04:20 INR 1.2 (0.9-1.2) 06/04/17 04:20 APTT 69.0 Seconds (25.6-37.1) H D 06/04/17 07:51 - Constitutional Appears: Non-toxic, No Acute Distress - Head Exam Head Exam: ATRAUMATIC, NORMAL INSPECTION, NORMOCEPHALIC - Eye Exam Eye Exam: EOMI, Normal appearance, PERRL Pupil Exam: NORMAL ACCOMODATION - ENT Exam ENT Exam: Mucous Membranes Moist, Normal Exam - Neck Exam Neck Exam: Full ROM, Normal Inspection - Respiratory Exam Respiratory Exam: Clear to Ausculation Bilateral, NORMAL BREATHING PATTERN. absent: Rales, Rhonchi, Wheezes - Cardiovascular Exam Cardiovascular Exam: REGULAR RHYTHM, RRR, +S1, +S2. absent: JVD - GI/Abdominal Exam GI & Abdominal Exam: Soft, Tenderness (with palpation to RUQ), Normal Bowel Sounds. absent: Distended, Guarding, Rebound - Rectal Exam Rectal Exam: Deferred - Extremities Exam Extremities Exam: Full ROM, Normal Capillary Refill, Normal Inspection. absent : Calf Tenderness, Pedal Edema - Back Exam Back Exam: NORMAL INSPECTION - Neurological Exam Neurological Exam: Alert, Awake, CN II-XII Intact, Oriented x3 - Psychiatric Exam Psychiatric exam: Normal Affect, Normal Mood - Skin Skin Exam: Dry, Intact, Normal Color, Warm Assessment and Plan - Assessment and Plan (Free Text) Assessment: 61 y/o male with no PMH came in because of abdominal pain mainly on the epigastric and RUQ , accompanied by N/V, and fever. Labs showed Leukocytosis and abn LFTs. Pt started on IV antibiotics MRCP:Findings consistent with acute cholecystitis. No evidence of choledocholithiasis or biliary obstruction. GI and Surgery consulted. Pt underwent ERCP on 05/28 noted pus in CBD 05/30: pt went for Lap Cholecystectomy 06/02: noted elevated LFTs, repeat CT showed R portal vein thrombosis. 06/03: heparin drip initiated, discussed with GI and Hematology. HIDA scan showed no leak At presebnt doing better, tolerating PO intake 1. Acute Cholangitis/Cholecystitis s/p Lap Chantal and ERCP that showed pus HIDA scan showed no biliary leak tolerating PO intake WBC 14 K , afebrile Discussed case with GI Dr. Damon. Continue antibiotics for total 2 weeks Continue to monitor LFT_s and bilirubin Surgery on board following Continue pain management Promote ambulation 2. R Portal Vein Thrombus CT abdomen showed portal vein thrombosis , most likely septic emboli Hematology consulted Ob Heparin drip and Coumadin PO Repeat PT/ INr in AM 3. DVt prophylaxis on Heparin drip
[2017-06-04] MEDS: Heparin 25,000units in D5W 25,000 UNITS/250 ML BAG IV SCH (20:00)
[2017-06-05] MEDS: Piperacillin/Tazobact 3.375 GM in Sodium Chloride 0.9% 100 ML IVPB SCH ×3 (04:30→16:14)
[2017-06-05 06:12] LABS: HEMOGLOBIN 12.5 g/dL (12.0-18.0); MEAN CELL VOLUME 91.8 fl (80.0-94.0); MEAN CORPUSCULAR HEMOGLOBIN 31.5 pg (27.0-31.0); MEAN CORPUSCULAR HGB CONC 34.3 g/dL (33.0-37.0); RBC 3.98 Mil/uL (4.40-5.90); RED CELL DISTRIBUTION WIDTH 14.3 % (11.5-14.5); WHITE BLOOD COUNT 17.1 K/uL (4.8-10.8)
[2017-06-05 06:21] LABS: ALB/GLOB RATIO 0.8 (1.0-2.1); ALBUMIN 3.6 g/dL (3.5-5.0); ALT/SGPT 126 U/L (21-72); AST/SGOT 80 U/L (17-59); BLOOD UREA NITROGEN 14 mg/dl (9-20); CALCIUM 9.2 mg/dL (8.4-10.2); GFR AFRICAN-AMERICAN > 60; GFR NON-AFRICAN AMERICAN > 60
[2017-06-05 06:25] LABS: INR 1.3 (0.9-1.2); PARTIAL THROMBOPLASTIN TIME 68.2 Seconds (25.6-37.1); PROTHROMBIN TIME 14.1 Seconds (9.8-13.1)
--- NOTE | 2017-06-05 07:33 | CP.PCM.PN ---
Subjective - Date & Time of Evaluation Date of Evaluation: 06/05/17 Time of Evaluation: 09:30 - Subjective Subjective: Patient seen and examined . Sitting in chair and resting comfortably.Complains of pain to RUQ especially with coughing and trying to go to the bathroom.Afebrile but having diaphoresis. Tolerating po intake ,denies nausea , vomiting. WBC trending up 17 K AST/ALt 80/126 Alk Phosph 487 No acute issues overnight Objective - Vital Signs/Intake and Output Vital Signs (last 24 hours): Temp Pulse Resp BP Pulse Ox 97.7 F 78 18 107/72 95 06/05/17 04:43 06/05/17 04:43 06/05/17 04:43 06/05/17 04:43 06/05/17 04:43 - Medications Medications: Current Medications Acetaminophen (Tylenol 325 Mg Supp) 325 mg [place] Q6 PRN PRN Reason: Fever >100.4 F Last Admin: 05/28/17 00:52 Dose: 325 mg Enoxaparin Sodium (Lovenox) 60 mg SC Q12 TRACI PRN Reason: Protocol Piperacillin Sod/Tazobactam (Sod 3.375 gm/ Sodium Chloride) 100 mls @ 100 mls/ hr IVPB Q6 TRACI PRN Reason: Protocol Last Admin: 06/05/17 04:30 Dose: 100 mls/hr Heparin Sodium/Dextrose (Heparin 25,000 Units/250ml In D5w) 25,000 units in 250 mls @ 10 mls/hr IV .Q24H TRACI; Per Protocol PRN Reason: Protocol Last Admin: 06/04/17 20:00 Dose: Not Given Ondansetron HCl (Zofran Inj) 4 mg IVP Q4 PRN PRN Reason: Nausea/Vomiting - Labs Labs: 06/05/17 04:25 06/05/17 04:25 PT 14.1 Seconds (9.8-13.1) H 06/05/17 04:25 INR 1.3 (0.9-1.2) H 06/05/17 04:25 APTT 68.2 Seconds (25.6-37.1) H D 06/05/17 04:25 - Constitutional Appears: Non-toxic, No Acute Distress - Head Exam Head Exam: ATRAUMATIC, NORMAL INSPECTION, NORMOCEPHALIC - Eye Exam Eye Exam: EOMI, Normal appearance, PERRL Pupil Exam: NORMAL ACCOMODATION - ENT Exam ENT Exam: Mucous Membranes Moist, Normal Exam - Neck Exam Neck Exam: Full ROM, Normal Inspection - Respiratory Exam Respiratory Exam: Clear to Ausculation Bilateral, NORMAL BREATHING PATTERN. absent: Rales, Rhonchi, Wheezes - Cardiovascular Exam Cardiovascular Exam: REGULAR RHYTHM, RRR, +S1, +S2. absent: JVD - GI/Abdominal Exam GI & Abdominal Exam: Tenderness (RUQ), Normal Bowel Sounds. absent: Distended, Guarding, Rebound - Rectal Exam Rectal Exam: Deferred - Extremities Exam Extremities Exam: Full ROM, Normal Capillary Refill, Normal Inspection. absent : Calf Tenderness, Pedal Edema - Back Exam Back Exam: NORMAL INSPECTION - Neurological Exam Neurological Exam: Alert, Awake, CN II-XII Intact, Oriented x3 - Psychiatric Exam Psychiatric exam: Normal Affect, Normal Mood - Skin Skin Exam: Dry, Intact, Normal Color, Warm Assessment and Plan - Assessment and Plan (Free Text) Assessment: 61 y/o male with no PMH came in because of abdominal pain mainly on the epigastric and RUQ , accompanied by N/V, and fever. Labs showed Leukocytosis and abn LFTs. Pt started on IV antibiotics MRCP showed acute cholecystitis. No evidence of choledocholithiasis or biliary obstruction. GI and Surgery consulted. Patient underwent ERCP on 05/28 and pus was noted in CBD that was cleared out. 05/30: underwent Laparascopic Cholecystectomy 06/02: noted elevated LFTs, repeat CT showed R portal vein thrombosis and gall bladder fossa edema 06/03: heparin drip initiated, discussed with GI and Hematology. HIDA scan showed no leak At present doing better, tolerating PO intake but WBC still elevated 17 K Cultures from biliary secretions positive for Klebsiella Pneumonia 1. Acute Cholangitis/Cholecystitis s/p Lap Chantal and ERCP s/p ERCP with pus removal and s/p lap cholecystectomy Biliary cultures positive for Klebsiella pneumonia On Zosyn IV since admission but WBC still elevated 17 K. Called ID and case discussed with Dr. Robbins HIDA scan showed no biliary leak tolerating PO intake Discussed case with GI Dr. Damon. Continue antibiotics for total 2 weeks Continue to monitor LFT_s and bilirubin Surgery on board following Continue pain management Promote ambulation incentive spirometry Q1 h transfer to med/surg 2. R Portal Vein Thrombus CT abdomen showed portal vein thrombosis , most likely septic emboli Hematology consulted On Heparin drip and Coumadin PO INR 1.3 today. Will give 5 mg Coumadin today Repeat PT/INR in AM 3. DVt prophylaxis on Heparin drip
--- NOTE | 2017-06-05 12:29 | CP.PCM.PN ---
Subjective - Date & Time of Evaluation Date of Evaluation: 06/05/17 Time of Evaluation: 12:27 - Subjective Subjective: SURGERY NOTE FOR DR. COX 61M seen and examined at bedside. Patient states he is developing coughing symptoms and chills. Continues to complain about of abdominal pain. Denies nausea, vomiting. Tolerating diet. Objective - Vital Signs/Intake and Output Vital Signs (last 24 hours): Temp Pulse Resp BP Pulse Ox 98.3 F 75 18 102/67 95 06/05/17 07:51 06/05/17 07:51 06/05/17 07:51 06/05/17 07:51 06/05/17 07:51 - Medications Medications: Current Medications Acetaminophen (Tylenol 325 Mg Supp) 325 mg [place] Q6 PRN PRN Reason: Fever >100.4 F Last Admin: 05/28/17 00:52 Dose: 325 mg Enoxaparin Sodium (Lovenox) 60 mg SC Q12 TRACI PRN Reason: Protocol Piperacillin Sod/Tazobactam (Sod 3.375 gm/ Sodium Chloride) 100 mls @ 100 mls/ hr IVPB Q6 TRACI PRN Reason: Protocol Last Admin: 06/05/17 09:33 Dose: 100 mls/hr Heparin Sodium/Dextrose (Heparin 25,000 Units/250ml In D5w) 25,000 units in 250 mls @ 10 mls/hr IV .Q24H TRACI; Per Protocol PRN Reason: Protocol Last Admin: 06/04/17 20:00 Dose: Not Given Ondansetron HCl (Zofran Inj) 4 mg IVP Q4 PRN PRN Reason: Nausea/Vomiting Warfarin Sodium (Coumadin) 3 mg PO QD5 TRACI PRN Reason: Protocol Stop: 06/05/17 17:01 - Labs Labs: 06/05/17 04:25 06/05/17 04:25 PT 14.1 Seconds (9.8-13.1) H 06/05/17 04:25 INR 1.3 (0.9-1.2) H 06/05/17 04:25 APTT 68.2 Seconds (25.6-37.1) H D 06/05/17 04:25 - Constitutional Appears: Well, Non-toxic, No Acute Distress, Other - Respiratory Exam Respiratory Exam: Clear to Ausculation Bilateral, NORMAL BREATHING PATTERN - Cardiovascular Exam Cardiovascular Exam: REGULAR RHYTHM, +S1, +S2 - GI/Abdominal Exam GI & Abdominal Exam: Soft, Tenderness. absent: Distended, Firm, Guarding, Rigid , Rebound - Extremities Exam Extremities Exam: absent: Pedal Edema, Tenderness - Neurological Exam Neurological Exam: Alert, Awake - Skin Skin Exam: Dry, Intact, Normal Color, Warm Assessment and Plan - Assessment and Plan (Free Text) Assessment: 61M s/p laparoscopic cholecystectomy POD6 Plan: - continue current diet - continue anticoagulation - F/u hem recs Further recs discuss with Dr. Prosper Rutledge, PGY2
--- NOTE | 2017-06-05 12:52 | RAD ---
HISTORY: cough, elevated wbc COMPARISON: 03/31/2017 FINDINGS: LUNGS: Relative lucency central lung zone compatible with emphysematous changes. Right apical pleural thickening/opacity chronicity prior to this unknown. The vague patchy opacity at the left lung base appears less conspicuous -interval improvement/ improved aeration here inferred. PLEURA: As above. No pneumothorax CARDIOVASCULAR: Normal. OSSEOUS STRUCTURES: No significant abnormalities. VISUALIZED UPPER ABDOMEN: Normal. OTHER FINDINGS: None. IMPRESSION: The prior left basal patchy infiltrate has improved. The right apical pleural based thickening/opacity is similar to 05/29/2017-its chronicity prior to that is unknown. Comparison with earlier chest x-rays is recommended to ensure stability.
--- NOTE | 2017-06-05 14:52 | CP.PCM.CON ---
History of Present Illness - History of Present Illness History of Present Illness: Infectious Disease Consultation- asked to see this patient at the request of Hospitalist for persistent leukocytosis despite being on IV antibiotics and help with antibiotic management. KEV- neli is a pleasant 61 year old male with no pmh who was admitted with c/o of RUQ and mid-epigastric abdominal pain along with fever and nausea and vomiting . he was found to have fever , high wbc and elevated LFTs and MRCP showed acute cholecystitis No evidence of choledocholithiasis or biliary obstruction. GI and Surgery consulted. Pt underwent ERCP on 05/28: noted pus in CBD 05/30: pt went for Lap Cholecystectomy 06/02: noted elevated LFTs, repeat CT showed R portal vein thrombosis. 06/03: heparin drip initiated as per hospitalist team. patient has been on IV zosyn as per GI , however, continues to have high wbc and hence i'm asked to evaluate and help with antibiotic management. Pt. currently resting comfortably in bed but states still has abdominal pain in mid epigastric region. deneis any more vomiting or nausea. denies any chills.denies any dysurea, denies any diarrhea. Review of Systems - Review of Systems Review of Systems: Pt. currently resting comfortably in bed but states still has abdominal pain in mid epigastric region less than before denies any more vomiting or nausea. denies any chills.denies any dysurea, denies any diarrhea. denies any sick contacts pt. from [place] Past Patient History - Past Medical History & Family History Past Medical History?: No - Past Social History Smoking Status: Never Smoked Alcohol: None Drugs: Denies - CARDIAC Hx Cardiac Disorders: No - PULMONARY Hx Respiratory Disorders: No - NEUROLOGICAL Hx Neurological Disorder: No - HEENT Hx HEENT Problems: No - RENAL Hx Chronic Kidney Disease: No - ENDOCRINE/METABOLIC Hx Endocrine Disorders: No - HEMATOLOGICAL/ONCOLOGICAL Hx Blood Disorders: No - INTEGUMENTARY Hx Dermatological Problems: No - MUSCULOSKELETAL/RHEUMATOLOGICAL Hx Musculoskeletal Disorders: No Hx Falls: No - GASTROINTESTINAL Hx Gastrointestinal Disorders: No Hx Hemorrhoids: No - GENITOURINARY/GYNECOLOGICAL Hx Genitourinary Disorders: No - PSYCHIATRIC Hx Psychophysiologic Disorder: No Hx Substance Use: No - SURGICAL HISTORY Hx Surgeries: No - ANESTHESIA Hx Anesthesia: No Hx Anesthesia Reactions: No Hx Malignant Hyperthermia: No Has any member of the family had a problem w/ anesthesia?: No Meds Allergies/Adverse Reactions: Allergies Allergy/AdvReac Type Severity Reaction Status Date / Time No Known Allergies Allergy Verified 05/26/17 17:01 - Medications Medications: Current Medications Acetaminophen (Tylenol 325 Mg Supp) 325 mg [place] Q6 PRN PRN Reason: Fever >100.4 F Last Admin: 05/28/17 00:52 Dose: 325 mg Enoxaparin Sodium (Lovenox) 60 mg SC Q12 TRACI PRN Reason: Protocol Piperacillin Sod/Tazobactam (Sod 3.375 gm/ Sodium Chloride) 100 mls @ 100 mls/ hr IVPB Q6 TRACI PRN Reason: Protocol Last Admin: 06/05/17 09:33 Dose: 100 mls/hr Heparin Sodium/Dextrose (Heparin 25,000 Units/250ml In D5w) 25,000 units in 250 mls @ 13 mls/hr IV .[id number] TRACI PRN Reason: Protocol Ondansetron HCl (Zofran Inj) 4 mg IVP Q4 PRN PRN Reason: Nausea/Vomiting Warfarin Sodium (Coumadin) 3 mg PO QD5 TRACI PRN Reason: Protocol Stop: 06/05/17 17:01 Physical Exam - Constitutional Appears: No Acute Distress - Head Exam Head Exam: ATRAUMATIC - Eye Exam Eye Exam: EOMI Pupil Exam: PERRL - ENT Exam ENT Exam: Normal Oropharynx - Neck Exam Neck exam: Positive for: Full Rom - Respiratory Exam Respiratory Exam: Clear to Auscultation Bilateral, NORMAL BREATHING PATTERN - Cardiovascular Exam Cardiovascular Exam: RRR, +S1, +S2 - GI/Abdominal Exam GI & Abdominal Exam: Soft Additional comments: minimal distention + Bowel sounds + tenderness in epigastric and RUQ region no guarding, no rebound - Extremities Exam Extremities exam: Positive for: normal inspection - Neurological Exam Neurological exam: Alert, Oriented x3 Results - Vital Signs Recent Vital Signs: Last Vital Signs Temp 98.3 F 06/05/17 07:51 Pulse 75 06/05/17 07:51 Resp 18 06/05/17 07:51 BP 102/67 06/05/17 07:51 Pulse Ox 95 06/05/17 07:51 - Labs Result Diagrams: 06/05/17 04:25 06/05/17 04:25 Labs: Laboratory Results - last 24 hr 06/04/17 06/05/17 06/05/17 16:17 00:30 04:25 WBC 17.1 H RBC 3.98 L Hgb 12.5 Hct 36.5 MCV 91.8 MCH 31.5 H MCHC 34.3 RDW 14.3 Plt Count 830 H PT INR APTT 44.1 H D 54.0 H D Sodium Potassium Chloride Carbon Dioxide Anion Gap BUN Creatinine Est GFR ( Amer) Est GFR (Non-Af Amer) Random Glucose Calcium Total Bilirubin AST ALT Alkaline Phosphatase Total Protein Albumin Globulin Albumin/Globulin Ratio 06/05/17 06/05/17 04:25 04:25 WBC RBC Hgb Hct MCV MCH MCHC RDW Plt Count PT 14.1 H INR 1.3 H APTT 68.2 H D Sodium 139 Potassium 4.2 Chloride 102 Carbon Dioxide 21 L Anion Gap 20 BUN 14 Creatinine 0.6 L Est GFR ( Amer) > 60 Est GFR (Non-Af Amer) > 60 Random Glucose 111 H Calcium 9.2 Total Bilirubin 0.7 AST 80 H ALT 126 H Alkaline Phosphatase 487 H Total Protein 7.9 Albumin 3.6 Globulin 4.3 H Albumin/Globulin Ratio 0.8 L Laboratory Results - last 72 hr 06/03/17 06/03/17 06/03/17 09:50 09:50 10:52 WBC 12.9 H RBC 4.06 L Hgb 12.8 Hct 37.4 MCV 92.2 MCH 31.5 H MCHC 34.1 RDW 14.2 Plt Count 604 H D MPV 7.2 Neut % (Auto) 64.7 Lymph % (Auto) 18.2 L Frio % (Auto) 6.4 Eos % (Auto) 9.7 H Baso % (Auto) 1.0 Neut # (Auto) 8.3 H Lymph # (Auto) 2.3 Frio # (Auto) 0.8 Eos # (Auto) 1.2 H Baso # (Auto) 0.1 PT 12.2 INR 1.1 APTT Sodium 139 Potassium 4.5 Chloride 99 Carbon Dioxide 25 Anion Gap 20 BUN 13 Creatinine 0.6 L Est GFR ( Amer) > 60 Est GFR (Non-Af Amer) > 60 Random Glucose 142 H Calcium 9.2 Total Bilirubin 1.0 AST 105 H ALT 141 H Alkaline Phosphatase 429 H Total Protein 7.7 Albumin 3.4 L Globulin 4.2 H Albumin/Globulin Ratio 0.8 L 06/03/17 06/03/17 06/04/17 17:25 17:25 01:15 WBC 14.7 H RBC 4.11 L Hgb 12.8 Hct 38.0 MCV 92.5 MCH 31.1 H MCHC 33.6 RDW 14.2 Plt Count 697 H MPV Neut % (Auto) Lymph % (Auto) Frio % (Auto) Eos % (Auto) Baso % (Auto) Neut # (Auto) Lymph # (Auto) Frio # (Auto) Eos # (Auto) Baso # (Auto) PT INR APTT 35.3 46.9 H D Sodium Potassium Chloride Carbon Dioxide Anion Gap BUN Creatinine Est GFR ( Amer) Est GFR (Non-Af Amer) Random Glucose Calcium Total Bilirubin AST ALT Alkaline Phosphatase Total Protein Albumin Globulin Albumin/Globulin Ratio 06/04/17 06/04/17 06/04/17 04:20 04:20 04:20 WBC 14.0 H RBC 4.01 L Hgb 12.4 Hct 36.8 MCV 91.9 MCH 31.1 H MCHC 33.8 RDW 14.5 Plt Count 734 H MPV 7.1 L Neut % (Auto) 65.4 Lymph % (Auto) 18.5 L Frio % (Auto) 6.3 Eos % (Auto) 8.8 H Baso % (Auto) 1.0 Neut # (Auto) 9.2 H Lymph # (Auto) 2.6 Frio # (Auto) 0.9 H Eos # (Auto) 1.2 H Baso # (Auto) 0.1 PT 13.0 INR 1.2 APTT Sodium 139 Potassium 3.8 Chloride 101 Carbon Dioxide 22 Anion Gap 20 BUN 16 Creatinine 0.6 L Est GFR ( Amer) > 60 Est GFR (Non-Af Amer) > 60 Random Glucose 136 H Calcium 9.1 Total Bilirubin 1.0 AST 85 H ALT 129 H Alkaline Phosphatase 466 H Total Protein 7.6 Albumin 3.4 L Globulin 4.1 H Albumin/Globulin Ratio 0.8 L 06/04/17 06/04/17 06/05/17 07:51 16:17 00:30 WBC RBC Hgb Hct MCV MCH MCHC RDW Plt Count MPV Neut % (Auto) Lymph % (Auto) Frio % (Auto) Eos % (Auto) Baso % (Auto) Neut # (Auto) Lymph # (Auto) Frio # (Auto) Eos # (Auto) Baso # (Auto) PT INR APTT 69.0 H D 44.1 H D 54.0 H D Sodium Potassium Chloride Carbon Dioxide Anion Gap BUN Creatinine Est GFR ( Amer) Est GFR (Non-Af Amer) Random Glucose Calcium Total Bilirubin AST ALT Alkaline Phosphatase Total Protein Albumin Globulin Albumin/Globulin Ratio 06/05/17 06/05/17 06/05/17 04:25 04:25 04:25 WBC 17.1 H RBC 3.98 L Hgb 12.5 Hct 36.5 MCV 91.8 MCH 31.5 H MCHC 34.3 RDW 14.3 Plt Count 830 H MPV Neut % (Auto) Lymph % (Auto) Frio % (Auto) Eos % (Auto) Baso % (Auto) Neut # (Auto) Lymph # (Auto) Frio # (Auto) Eos # (Auto) Baso # (Auto) PT 14.1 H INR 1.3 H APTT 68.2 H D Sodium 139 Potassium 4.2 Chloride 102 Carbon Dioxide 21 L Anion Gap 20 BUN 14 Creatinine 0.6 L Est GFR ( Amer) > 60 Est GFR (Non-Af Amer) > 60 Random Glucose 111 H Calcium 9.2 Total Bilirubin 0.7 AST 80 H ALT 126 H Alkaline Phosphatase 487 H Total Protein 7.9 Albumin 3.6 Globulin 4.3 H Albumin/Globulin Ratio 0.8 L Microbiology 05/30/17 08:58 Naris MRSA Culture (Admit) - Final MRSA NOT DETECTED 05/30/17 13:08 Gallbladder Gram Stain - Final 05/30/17 13:08 Gallbladder Wound Culture - Final Klebsiella Pneumoniae Ssp Pneu 05/26/17 18:15 Blood-Venous Blood Culture - Final NO GROWTH AFTER 5 DAYS 05/26/17 18:15 Blood-Venous Gram Stain - Final TEST NOT PERFORMED 05/26/17 18:15 Blood-Venous Blood Culture - Final NO GROWTH AFTER 5 DAYS 05/26/17 18:15 Blood-Venous Gram Stain - Final TEST NOT PERFORMED 05/28/17 11:50 Nose MRSA Culture (Admit) - Final MRSA NOT DETECTED 05/26/17 17:25 Urine,Clean Catch Urine Culture - Final No Growth (<1,000 CFU/ML) Accession No. : [id number] Patient Name / ID : PETRONA BAILEY / [id number] Exam Date : 05/27/2017 15:40:55 ( Approved ) Study Comment : Sex / Age : M / 61Y Creator : Dilip Mora MD Dictator : Dilip Mora MD Police Clerk : Yarn Cleaner : Dilip Mora MD Approver2 : Report Date : 05/28/2017 10:44:05 My Comment : PROCEDURE: Magnetic Resonance Cholangiopancreatography HISTORY: COMPARISON: None available. TECHNIQUE: Multiplanar, multisequence MR images of the abdomen were obtained, including heavily T2 weighted MRCP images of the biliary system. Rotating maximum intensity projection images of the biliary system were generated. FINDINGS: MRCP: The common bile duct is of a normal caliber. No evidence of choledocholithiasis. No intrahepatic biliary ductal dilatation. LIVER: Unremarkable. GALLBLADDER: Cholelithiasis. Mural thickening. Pericholecystic edema and pericholecystic fluid. Findings concerning for acute cholecystitis. There is a calculus seen in the gallbladder neck/ cystic duct. SPLEEN: Unremarkable. PANCREAS: Unremarkable. ADRENALS: Unremarkable. KIDNEYS: Unremarkable. AORTA: No aneurysm. ASCITES: Trace ascites in the right pericolic gutter as well as fluid about the 2nd portion of the duodenum and about the gallbladder. OTHER FINDINGS: Please note that gadolinium administration demonstrates no enhancing hepatic or pancreatic mass. There is intense rapid enhancement of the gallbladder wall, consistent with an acute inflammatory process. IMPRESSION: Findings consistent with acute cholecystitis. No evidence of choledocholithiasis or biliary obstruction. Preliminary interpretation of this examination was reported by Linio at 7:41 p.m. on 05/27/2017. There is concurrence of this report with the preliminary interpretation. Assessment & Plan (1) Acute cholangitis Status: Acute (2) Leukocytosis Status: Acute (3) RUQ abdominal pain Status: Acute (4) Gangrenous cholecystitis Status: Acute - Assessment and Plan (Free Text) Assessment: A/P- 61 year old male with RUQ abd pain, fever and leukocytoiss found to have gangrenous cholecystitis and s/p needle knife bile duct pus extraction and s/p lap cholecystectomy pod #6. has remained afebrile since 05/30/2017 however rise in leukocytosis despite being on IV zosyn for past 11 days. still has abdominal pian . blood cx- neg x 2 gall bladder path report-gangrenous as per path report. GB pus fluid cx report- Klebsiella pneumonia not esbl sensitive to zosyn as well as carbapanemes and cephalosporins but not very good MARTIN to zosyn. hepatitis panel- negative plan- d/c zosyn. start patient on IV meropenm and metronidazole. if no improvement in wbc may need repeat abd /pelvic CT rule out any abscess or fluid collection. check 2 more blood cx. follow LFTs closely. All above d/w patient and he verbalizes full understanding of all above and agrees with above plan of care. Thank you for allowing me to take part in the care of this patient.
[2017-06-05] MEDS: Heparin 25,000units in D5W 25,000 UNITS/250 ML BAG IV SCH (16:36)
[2017-06-05] MEDS: metroNIDAZOLE 500mg/100ml NS 100 ML IVPB SCH (18:31)
[2017-06-05] MEDS: Meropenem 1 GM in Sodium Chloride 0.9% 100 ML IVPB SCH (18:32)
[2017-06-06] MEDS: metroNIDAZOLE 500mg/100ml NS 100 ML IVPB SCH ×3 (00:44→16:37)
[2017-06-06] MEDS: Meropenem 1 GM in Sodium Chloride 0.9% 100 ML IVPB SCH ×3 (00:44→16:37)
[2017-06-06 06:55] LABS: HEMOGLOBIN 12.6 g/dL (12.0-18.0); MEAN CELL VOLUME 91.8 fl (80.0-94.0); MEAN CORPUSCULAR HEMOGLOBIN 31.3 pg (27.0-31.0); MEAN CORPUSCULAR HGB CONC 34.1 g/dL (33.0-37.0); RBC 4.02 Mil/uL (4.40-5.90); RED CELL DISTRIBUTION WIDTH 14.4 % (11.5-14.5); WHITE BLOOD COUNT 13.7 K/uL (4.8-10.8)
[2017-06-06 07:14] LABS: INR 1.5 (0.9-1.2); PROTHROMBIN TIME 17.2 Seconds (9.8-13.1)
[2017-06-06 07:15] LABS: ALB/GLOB RATIO 0.9 (1.0-2.1); ALBUMIN 3.7 g/dL (3.5-5.0); ALT/SGPT 113 U/L (21-72); AST/SGOT 69 U/L (17-59); BLOOD UREA NITROGEN 13 mg/dl (9-20); CALCIUM 9.4 mg/dL (8.4-10.2); GFR AFRICAN-AMERICAN > 60; GFR NON-AFRICAN AMERICAN > 60
--- NOTE | 2017-06-06 07:34 | CP.PCM.PN ---
Subjective - Date & Time of Evaluation Date of Evaluation: 06/06/17 Time of Evaluation: 07:29 - Subjective Subjective: SURGERY NOTE FOR DR. COX 61M seen and examined at bedside. Patient states pain is much better, denies nausea, vomiting, fevers, chills. Tolerating diet. Objective - Vital Signs/Intake and Output Vital Signs (last 24 hours): Temp Pulse Resp BP Pulse Ox 98.3 F 71 18 105/70 95 06/06/17 05:00 06/06/17 05:00 06/06/17 05:00 06/06/17 05:00 06/06/17 05:00 - Medications Medications: Current Medications Acetaminophen (Tylenol 325 Mg Supp) 325 mg ND Q6 PRN PRN Reason: Fever >100.4 F Last Admin: 05/28/17 00:52 Dose: 325 mg Enoxaparin Sodium (Lovenox) 60 mg SC Q12 TRACI PRN Reason: Protocol Heparin Sodium/Dextrose (Heparin 25,000 Units/250ml In D5w) 25,000 units in 250 mls @ 13 mls/hr IV .[id number] TRACI PRN Reason: Protocol Last Admin: 06/05/17 16:36 Dose: 13 mls/hr Meropenem 1 gm/ Sodium (Chloride) 100 mls @ 100 mls/hr IVPB Q8 TRACI PRN Reason: Protocol Last Admin: 06/06/17 00:44 Dose: 100 mls/hr Metronidazole (Flagyl 500mg/100ml Ns) 100 mls @ 100 mls/hr IVPB Q8 TRACI PRN Reason: Protocol Last Admin: 06/06/17 00:44 Dose: 100 mls/hr Ondansetron HCl (Zofran Inj) 4 mg IVP Q4 PRN PRN Reason: Nausea/Vomiting - Labs Labs: 06/05/17 04:25 06/06/17 05:30 PT 17.2 Seconds (9.8-13.1) H 06/06/17 05:30 INR 1.5 (0.9-1.2) H 06/06/17 05:30 APTT 68.2 Seconds (25.6-37.1) H D 06/05/17 04:25 - Constitutional Appears: Well, Non-toxic, No Acute Distress - Head Exam Head Exam: ATRAUMATIC - Respiratory Exam Respiratory Exam: Clear to Ausculation Bilateral, NORMAL BREATHING PATTERN - Cardiovascular Exam Cardiovascular Exam: REGULAR RHYTHM, +S1, +S2 - GI/Abdominal Exam GI & Abdominal Exam: Soft, Tenderness (mild pain on right abdomen). absent: Distended, Firm, Guarding, Rigid, Rebound - Neurological Exam Neurological Exam: Alert, Awake - Skin Skin Exam: Dry, Intact, Normal Color, Warm Assessment and Plan - Assessment and Plan (Free Text) Assessment: 61F s/p laparoscopic cholecystectomy POD#7 Plan: - ID consulted - Antibiotics as per ID - Continue diet - Pain management Further recs discuss with Dr. Prosper Rutledge, PGY2
--- NOTE | 2017-06-06 12:04 | CP.PCM.PN ---
Subjective - Date & Time of Evaluation Date of Evaluation: 06/06/17 Time of Evaluation: 12:00 - Subjective Subjective: No complaints Objective - Vital Signs/Intake and Output Vital Signs (last 24 hours): Temp Pulse Resp BP Pulse Ox 98.2 F 77 20 107/68 98 06/06/17 07:55 06/06/17 08:52 06/06/17 07:55 06/06/17 07:55 06/06/17 07:55 Intake and Output: 06/06/17 06/06/17 06:59 18:59 Intake Total 440 Output Total 200 Balance 240 - Medications Medications: Current Medications Acetaminophen (Tylenol 325 Mg Supp) 325 mg IN Q6 PRN PRN Reason: Fever >100.4 F Last Admin: 05/28/17 00:52 Dose: 325 mg Heparin Sodium/Dextrose (Heparin 25,000 Units/250ml In D5w) 25,000 units in 250 mls @ 13 mls/hr IV .[id number] TRACI PRN Reason: Protocol Last Admin: 06/05/17 16:36 Dose: 13 mls/hr Meropenem 1 gm/ Sodium (Chloride) 100 mls @ 100 mls/hr IVPB Q8 TRACI PRN Reason: Protocol Last Admin: 06/06/17 08:59 Dose: 100 mls/hr Metronidazole (Flagyl 500mg/100ml Ns) 100 mls @ 100 mls/hr IVPB Q8 TRACI PRN Reason: Protocol Last Admin: 06/06/17 08:58 Dose: 100 mls/hr Ondansetron HCl (Zofran Inj) 4 mg IVP Q4 PRN PRN Reason: Nausea/Vomiting Warfarin Sodium (Coumadin) 4 mg PO 1700 ONE PRN Reason: Protocol Stop: 06/06/17 17:01 - Labs Labs: 06/06/17 05:30 06/06/17 05:30 PT 17.2 Seconds (9.8-13.1) H 06/06/17 05:30 INR 1.5 (0.9-1.2) H 06/06/17 05:30 APTT 56.6 Seconds (25.6-37.1) H D 06/06/17 08:32 - Head Exam Head Exam: ATRAUMATIC - Eye Exam Eye Exam: Normal appearance - ENT Exam ENT Exam: Mucous Membranes Dry - Respiratory Exam Respiratory Exam: NORMAL BREATHING PATTERN - Cardiovascular Exam Cardiovascular Exam: +S1, +S2 - GI/Abdominal Exam GI & Abdominal Exam: Normal Bowel Sounds Assessment and Plan (1) Portal vein thrombosis Assessment & Plan: provoked therapeutic anticoagulation Status: Acute (2) Anemia Assessment & Plan: f/u w/u Status: Acute (3) Leukocytosis Assessment & Plan: on antibiotics Status: Acute (4) Coagulopathy Assessment & Plan: on anticoagulation Status: Acute
[2017-06-06] MEDS: Heparin 25,000units in D5W 25,000 UNITS/250 ML BAG IV SCH ×2 (12:18→21:06)
--- NOTE | 2017-06-06 12:42 | CP.PCM.PN ---
Subjective - Date & Time of Evaluation Date of Evaluation: 06/06/17 Time of Evaluation: 11:45 - Subjective Subjective: No fever abd pain resolved INR still subtherapeutic denies CP no SOB tolerating PO diet Objective - Vital Signs/Intake and Output Vital Signs (last 24 hours): Temp Pulse Resp BP Pulse Ox 98.0 F 79 20 103/70 93 L 06/06/17 12:28 06/06/17 12:28 06/06/17 12:28 06/06/17 12:28 06/06/17 12:28 Intake and Output: 06/06/17 06/06/17 06:59 18:59 Intake Total 690 Output Total 200 Balance 490 - Medications Medications: Current Medications Acetaminophen (Tylenol 325 Mg Supp) 325 mg SD Q6 PRN PRN Reason: Fever >100.4 F Last Admin: 05/28/17 00:52 Dose: 325 mg Heparin Sodium/Dextrose (Heparin 25,000 Units/250ml In D5w) 25,000 units in 250 mls @ 13 mls/hr IV .[id number] TRACI PRN Reason: Protocol Last Admin: 06/06/17 12:18 Dose: 13 mls/hr Meropenem 1 gm/ Sodium (Chloride) 100 mls @ 100 mls/hr IVPB Q8 TRACI PRN Reason: Protocol Last Admin: 06/06/17 08:59 Dose: 100 mls/hr Metronidazole (Flagyl 500mg/100ml Ns) 100 mls @ 100 mls/hr IVPB Q8 TRACI PRN Reason: Protocol Last Admin: 06/06/17 08:58 Dose: 100 mls/hr Ondansetron HCl (Zofran Inj) 4 mg IVP Q4 PRN PRN Reason: Nausea/Vomiting Warfarin Sodium (Coumadin) 4 mg PO 1700 ONE PRN Reason: Protocol Stop: 06/06/17 17:01 - Labs Labs: 06/06/17 05:30 06/06/17 05:30 PT 17.2 Seconds (9.8-13.1) H 06/06/17 05:30 INR 1.5 (0.9-1.2) H 06/06/17 05:30 APTT 56.6 Seconds (25.6-37.1) H D 06/06/17 08:32 - Constitutional Appears: No Acute Distress - Head Exam Head Exam: NORMAL INSPECTION, NORMOCEPHALIC - Eye Exam Eye Exam: EOMI, Normal appearance, PERRL Pupil Exam: NORMAL ACCOMODATION - ENT Exam ENT Exam: Mucous Membranes Dry, Normal External Ear Exam - Neck Exam Neck Exam: Full ROM. absent: Meningismus - Cardiovascular Exam Cardiovascular Exam: REGULAR RHYTHM, +S1, +S2 - GI/Abdominal Exam GI & Abdominal Exam: post op surgical wounds with glue BS normal, nontender - Extremities Exam Extremities Exam: Full ROM, Normal Capillary Refill. absent: Calf Tenderness - Back Exam Back Exam: Full ROM. absent: CVA tenderness (L), CVA tenderness (R) - Neurological Exam Neurological Exam: Alert, Awake, CN II-XII Intact, Oriented x3 - Psychiatric Exam Psychiatric exam: Normal Affect, Normal Mood - Skin Skin Exam: Dry, Normal Color, Warm Assessment and Plan (1) Acute cholangitis Status: Acute - Assessment and Plan (Free Text) Assessment: 61 y/o male with no PMH came in because of abdominal pain mainly on the epigastric and RUQ , accompanied by N/V, and fever. Labs showed Leukocytosis and abn LFTs. Pt started on IV antibiotics MRCP showed acute cholecystitis. No evidence of choledocholithiasis or biliary obstruction. GI and Surgery consulted. Patient underwent ERCP on 05/28 and pus was noted in CBD that was cleared out. 05/30: underwent Laparascopic Cholecystectomy 06/02: noted elevated LFTs, repeat CT showed R portal vein thrombosis and gall bladder fossa edema 06/03: heparin drip initiated, discussed with GI and Hematology. HIDA scan showed no leak At present doing better, tolerating PO intake but WBC still elevated 13k Cultures from biliary secretions positive for Klebsiella Pneumonia 1. Acute Cholangitis/Cholecystitis s/p Lap Chantal and ERCP s/p ERCP with pus removal and s/p lap cholecystectomy Biliary cultures positive for Klebsiella pneumonia On Zosyn IV since admission but WBC still elevated ID consulted- Dr Robbins, Abx changed to Meropenem and Flagyl HIDA scan showed no biliary leak tolerating PO intake Continue to monitor LFTs and bilirubin Surgery on board following Continue pain management Promote ambulation incentive spirometry Q1 h Transfer to med/surg 2. R Portal Vein Thrombosis CT abdomen showed portal vein thrombosis , most likely septic emboli Hematology consulted On Heparin drip and Coumadin PO INR 1.5 today. Will give 4 mg Coumadin today Repeat PT/INR in AM 3. DVt prophylaxis on Heparin drip
[2017-06-07] MEDS: Meropenem 1 GM in Sodium Chloride 0.9% 100 ML IVPB SCH ×3 (00:25→17:55)
[2017-06-07] MEDS: metroNIDAZOLE 500mg/100ml NS 100 ML IVPB SCH ×3 (00:36→16:33)
[2017-06-07 07:31] LABS: HEMOGLOBIN 12.8 g/dL (12.0-18.0); MEAN CELL VOLUME 92.3 fl (80.0-94.0); MEAN CORPUSCULAR HEMOGLOBIN 31.2 pg (27.0-31.0); MEAN CORPUSCULAR HGB CONC 33.8 g/dL (33.0-37.0); RBC 4.11 Mil/uL (4.40-5.90); RED CELL DISTRIBUTION WIDTH 14.3 % (11.5-14.5); WHITE BLOOD COUNT 13.1 K/uL (4.8-10.8)
[2017-06-07 07:40] LABS: ALB/GLOB RATIO 0.9 (1.0-2.1); ALBUMIN 3.8 g/dL (3.5-5.0); ALT/SGPT 106 U/L (21-72); AST/SGOT 71 U/L (17-59); BLOOD UREA NITROGEN 12 mg/dl (9-20); CALCIUM 9.5 mg/dL (8.4-10.2); GFR AFRICAN-AMERICAN > 60; GFR NON-AFRICAN AMERICAN > 60
[2017-06-07 08:31] LABS: INR 1.6 (0.9-1.2); PROTHROMBIN TIME 18.4 Seconds (9.8-13.1)
--- NOTE | 2017-06-07 08:38 | CP.PCM.PN ---
Subjective - Date & Time of Evaluation Date of Evaluation: 06/07/17 Time of Evaluation: 07:25 - Subjective Subjective: SURGERY NOTE FOR DR. COX Patient seen and examined at bedside. No acute event overnight. Patient states pain is improved. Denies nausea/vomiting. He is tolerating diet, passing gas, and having BMs. No complaints at this time. Objective - Vital Signs/Intake and Output Vital Signs (last 24 hours): Temp Pulse Resp BP Pulse Ox 98.0 F 84 19 101/66 97 06/07/17 00:00 06/07/17 00:00 06/07/17 00:00 06/07/17 00:00 06/07/17 00:00 - Medications Medications: Current Medications Acetaminophen (Tylenol 325 Mg Supp) 325 mg DE Q6 PRN PRN Reason: Fever >100.4 F Last Admin: 05/28/17 00:52 Dose: 325 mg Meropenem 1 gm/ Sodium (Chloride) 100 mls @ 100 mls/hr IVPB Q8 TRACI PRN Reason: Protocol Last Admin: 06/07/17 00:25 Dose: 100 mls/hr Metronidazole (Flagyl 500mg/100ml Ns) 100 mls @ 100 mls/hr IVPB Q8 TRACI PRN Reason: Protocol Last Admin: 06/07/17 00:36 Dose: 100 mls/hr Heparin Sodium/Dextrose (Heparin 25,000 Units/250ml In D5w) 25,000 units in 250 mls @ 13 mls/hr IV .[id number] TRACI PRN Reason: Protocol Last Admin: 06/06/17 21:06 Dose: Not Given Ondansetron HCl (Zofran Inj) 4 mg IVP Q4 PRN PRN Reason: Nausea/Vomiting - Labs Labs: 06/07/17 06:45 06/07/17 06:45 PT 18.4 Seconds (9.8-13.1) H 06/07/17 08:00 INR 1.6 (0.9-1.2) H 06/07/17 08:00 APTT 56.6 Seconds (25.6-37.1) H D 06/06/17 08:32 - Constitutional Appears: No Acute Distress - Head Exam Head Exam: ATRAUMATIC, NORMOCEPHALIC - Eye Exam Eye Exam: EOMI, Normal appearance Pupil Exam: PERRL - ENT Exam ENT Exam: Mucous Membranes Moist - Respiratory Exam Respiratory Exam: NORMAL BREATHING PATTERN - Cardiovascular Exam Cardiovascular Exam: REGULAR RHYTHM - GI/Abdominal Exam GI & Abdominal Exam: Soft, Normal Bowel Sounds. absent: Distended, Firm, Guarding, Rigid, Tenderness, Rebound - Extremities Exam Extremities Exam: Normal Capillary Refill - Back Exam Back Exam: absent: CVA tenderness (L), CVA tenderness (R) - Neurological Exam Neurological Exam: Alert, Awake, CN II-XII Intact, Oriented x3 - Psychiatric Exam Psychiatric exam: Normal Affect, Normal Mood - Skin Skin Exam: Dry, Intact, Normal Color, Warm Assessment and Plan - Assessment and Plan (Free Text) Plan: 61F s/p laparoscopic cholecystectomy POD#8 - Antibiotics as per ID - Continue diet - Pain management - Further recommendations as per Dr. Prosper Coyne PGY1
[2017-06-07] MEDS: Heparin 25,000units in D5W 25,000 UNITS/250 ML BAG IV SCH (11:40)
--- NOTE | 2017-06-07 14:03 | CP.PCM.PN ---
Subjective - Date & Time of Evaluation Date of Evaluation: 06/07/17 Time of Evaluation: 14:02 - Subjective Subjective: ID Note- Pt. seen and examined today. pt. states he feels much better and his abdominal pain ahs resolved and is eating well w/o any nausea. denies any diarrhea. Objective - Vital Signs/Intake and Output Vital Signs (last 24 hours): Temp Pulse Resp BP Pulse Ox 98.0 F 72 18 102/65 95 06/07/17 09:00 06/07/17 08:00 06/07/17 08:00 06/07/17 08:00 06/07/17 08:00 - Medications Medications: Current Medications Acetaminophen (Tylenol 325 Mg Supp) 325 mg MA Q6 PRN PRN Reason: Fever >100.4 F Last Admin: 05/28/17 00:52 Dose: 325 mg Meropenem 1 gm/ Sodium (Chloride) 100 mls @ 100 mls/hr IVPB Q8 TRACI PRN Reason: Protocol Last Admin: 06/07/17 11:44 Dose: 100 mls/hr Metronidazole (Flagyl 500mg/100ml Ns) 100 mls @ 100 mls/hr IVPB Q8 TRACI PRN Reason: Protocol Last Admin: 06/07/17 10:43 Dose: 100 mls/hr Heparin Sodium/Dextrose (Heparin 25,000 Units/250ml In D5w) 25,000 units in 250 mls @ 13 mls/hr IV .[id number] TRACI PRN Reason: Protocol Last Admin: 06/07/17 11:40 Dose: 13 mls/hr Ondansetron HCl (Zofran Inj) 4 mg IVP Q4 PRN PRN Reason: Nausea/Vomiting Warfarin Sodium (Coumadin) 6 mg PO QD5 TRACI PRN Reason: Protocol Stop: 06/07/17 17:01 - Labs Labs: - Additional Findings Additional findings: - Constitutional Appears: No Acute Distress - Head Exam Head Exam: ATRAUMATIC - Eye Exam Eye Exam: EOMI Pupil Exam: PERRL - ENT Exam ENT Exam: Normal Oropharynx - Neck Exam Neck exam: Positive for: Full Rom - Respiratory Exam Respiratory Exam: Clear to Auscultation Bilateral, NORMAL BREATHING PATTERN - Cardiovascular Exam Cardiovascular Exam: RRR, +S1, +S2 - GI/Abdominal Exam GI & Abdominal Exam: Soft Additional comments: NT, ND Positive bowel sounds - Extremities Exam Extremities exam: Positive for: normal inspection - Neurological Exam Neurological exam: Alert, Oriented x 3 Laboratory Results - last 72 hr 06/04/17 06/05/17 06/05/17 16:17 00:30 04:25 WBC 17.1 H RBC 3.98 L Hgb 12.5 Hct 36.5 MCV 91.8 MCH 31.5 H MCHC 34.3 RDW 14.3 Plt Count 830 H PT INR APTT 44.1 H D 54.0 H D Sodium Potassium Chloride Carbon Dioxide Anion Gap BUN Creatinine Est GFR ( Amer) Est GFR (Non-Af Amer) Random Glucose Calcium Total Bilirubin AST ALT Alkaline Phosphatase Total Protein Albumin Globulin Albumin/Globulin Ratio 06/05/17 06/05/17 06/06/17 04:25 04:25 05:30 WBC 13.7 H RBC 4.02 L Hgb 12.6 Hct 36.9 MCV 91.8 MCH 31.3 H MCHC 34.1 RDW 14.4 Plt Count 963 H* PT 14.1 H INR 1.3 H APTT 68.2 H D Sodium 139 Potassium 4.2 Chloride 102 Carbon Dioxide 21 L Anion Gap 20 BUN 14 Creatinine 0.6 L Est GFR ( Amer) > 60 Est GFR (Non-Af Amer) > 60 Random Glucose 111 H Calcium 9.2 Total Bilirubin 0.7 AST 80 H ALT 126 H Alkaline Phosphatase 487 H Total Protein 7.9 Albumin 3.6 Globulin 4.3 H Albumin/Globulin Ratio 0.8 L 06/06/17 06/06/17 06/06/17 05:30 05:30 08:32 WBC RBC Hgb Hct MCV MCH MCHC RDW Plt Count PT 17.2 H INR 1.5 H APTT 56.6 H D Sodium 140 Potassium 4.3 Chloride 99 Carbon Dioxide 22 Anion Gap 23 H BUN 13 Creatinine 0.6 L Est GFR ( Amer) > 60 Est GFR (Non-Af Amer) > 60 Random Glucose 111 H Calcium 9.4 Total Bilirubin 0.5 AST 69 H ALT 113 H Alkaline Phosphatase 458 H Total Protein 7.9 Albumin 3.7 Globulin 4.2 H Albumin/Globulin Ratio 0.9 L 06/07/17 06/07/17 06/07/17 06:45 06:45 08:00 WBC 13.1 H RBC 4.11 L Hgb 12.8 Hct 37.9 MCV 92.3 MCH 31.2 H MCHC 33.8 RDW 14.3 Plt Count 1072 H* PT 18.4 H INR 1.6 H APTT Sodium 140 Potassium 4.6 Chloride 99 Carbon Dioxide 25 Anion Gap 21 H BUN 12 Creatinine 0.7 L Est GFR ( Amer) > 60 Est GFR (Non-Af Amer) > 60 Random Glucose 104 Calcium 9.5 Total Bilirubin 0.7 AST 71 H ALT 106 H Alkaline Phosphatase 419 H Total Protein 8.3 H Albumin 3.8 Globulin 4.5 H Albumin/Globulin Ratio 0.9 L 06/07/17 11:34 WBC RBC Hgb Hct MCV MCH MCHC RDW Plt Count PT INR APTT 53.3 H Sodium Potassium Chloride Carbon Dioxide Anion Gap BUN Creatinine Est GFR ( Amer) Est GFR (Non-Af Amer) Random Glucose Calcium Total Bilirubin AST ALT Alkaline Phosphatase Total Protein Albumin Globulin Albumin/Globulin Ratio Microbiology 06/05/17 18:30 Blood-Venous Blood Culture - Preliminary NO GROWTH AFTER 24 HOURS 06/05/17 19:00 Blood-Venous Blood Culture - Preliminary NO GROWTH AFTER 24 HOURS 05/30/17 08:58 Naris MRSA Culture (Admit) - Final MRSA NOT DETECTED 05/30/17 13:08 Gallbladder Gram Stain - Final 05/30/17 13:08 Gallbladder Wound Culture - Final Klebsiella Pneumoniae Ssp Pneu 05/26/17 18:15 Blood-Venous Blood Culture - Final NO GROWTH AFTER 5 DAYS 05/26/17 18:15 Blood-Venous Gram Stain - Final TEST NOT PERFORMED 05/26/17 18:15 Blood-Venous Blood Culture - Final NO GROWTH AFTER 5 DAYS 05/26/17 18:15 Blood-Venous Gram Stain - Final TEST NOT PERFORMED 05/28/17 11:50 Nose MRSA Culture (Admit) - Final MRSA NOT DETECTED 05/26/17 17:25 Urine,Clean Catch Urine Culture - Final No Growth (<1,000 CFU/ML) Assessment and Plan (1) Acute cholangitis Status: Acute (2) Leukocytosis Status: Acute (3) RUQ abdominal pain Status: Acute (4) Gangrenous cholecystitis Status: Acute - Assessment and Plan (Free Text) Assessment: A/P- 61 year old male with RUQ abd pain, fever and leukocytoiss found to have gangrenous cholecystitis and s/p needle knife bile duct pus extraction and s/p lap cholecystectomy pod #6. has remained afebrile since 05/30/2017 leukocytosis improving blood cx- neg x 2 gall bladder path report-gangrenous as per path report. GB pus fluid cx report- Klebsiella pneumonia not esbl sensitive to zosyn as well as carbapanemes and cephalosporins but not very good MARTIN to zosyn. hepatitis panel- negative LFTS still elevated but trending down high PLT- could be reactive he is on blood thinners for portal vein thrombosis. plan- has been on IV meropnem and flagyl for past 3 days. if patient is cleared by surgery and GI then from ID standpoint he can be d/c on oral flagyl and cipro for 7 days. pt. to f/u with GI and surgery and PMD closely. have cbc done as outpatient in few days by his PMD monitor wbc and plt. All above d/w patient and he verbalizes full understanding of all above. plan d/w Hospitalist as well.
--- NOTE | 2017-06-07 15:29 | CP.PCM.PN ---
Subjective - Date & Time of Evaluation Date of Evaluation: 06/07/17 Time of Evaluation: 13:30 - Subjective Subjective: No fever abd pain resolved Tolerating PO diet INR still subtherapeutic, bridging with Heparin drip no CP no SOB Objective - Vital Signs/Intake and Output Vital Signs (last 24 hours): Temp Pulse Resp BP Pulse Ox 98.0 F 72 18 102/65 95 06/07/17 09:00 06/07/17 08:00 06/07/17 08:00 06/07/17 08:00 06/07/17 08:00 - Medications Medications: Current Medications Acetaminophen (Tylenol 325 Mg Supp) 325 mg RI Q6 PRN PRN Reason: Fever >100.4 F Last Admin: 05/28/17 00:52 Dose: 325 mg Meropenem 1 gm/ Sodium (Chloride) 100 mls @ 100 mls/hr IVPB Q8 TRACI PRN Reason: Protocol Last Admin: 06/07/17 11:44 Dose: 100 mls/hr Metronidazole (Flagyl 500mg/100ml Ns) 100 mls @ 100 mls/hr IVPB Q8 TRACI PRN Reason: Protocol Last Admin: 06/07/17 10:43 Dose: 100 mls/hr Heparin Sodium/Dextrose (Heparin 25,000 Units/250ml In D5w) 25,000 units in 250 mls @ 13 mls/hr IV .[id number] TRACI PRN Reason: Protocol Last Admin: 06/07/17 11:40 Dose: 13 mls/hr Ondansetron HCl (Zofran Inj) 4 mg IVP Q4 PRN PRN Reason: Nausea/Vomiting Warfarin Sodium (Coumadin) 6 mg PO QD5 TRACI PRN Reason: Protocol Stop: 06/07/17 17:01 - Labs Labs: 06/07/17 06:45 06/07/17 06:45 PT 18.4 Seconds (9.8-13.1) H 06/07/17 08:00 INR 1.6 (0.9-1.2) H 06/07/17 08:00 APTT 53.3 Seconds (25.6-37.1) H 06/07/17 11:34 - Constitutional Appears: No Acute Distress - Head Exam Head Exam: NORMAL INSPECTION, NORMOCEPHALIC - Eye Exam Eye Exam: EOMI, Normal appearance, PERRL Pupil Exam: NORMAL ACCOMODATION - ENT Exam ENT Exam: Mucous Membranes Dry, Normal External Ear Exam - Neck Exam Neck Exam: Full ROM. absent: Meningismus - Cardiovascular Exam Cardiovascular Exam: REGULAR RHYTHM, +S1, +S2 - GI/Abdominal Exam GI & Abdominal Exam: post op surgical wounds with glue BS normal, nontender - Extremities Exam Extremities Exam: Full ROM, Normal Capillary Refill. absent: Calf Tenderness - Back Exam Back Exam: Full ROM. absent: CVA tenderness (L), CVA tenderness (R) - Neurological Exam Neurological Exam: Alert, Awake, CN II-XII Intact, Oriented x3 - Psychiatric Exam Psychiatric exam: Normal Affect, Normal Mood - Skin Skin Exam: Dry, Normal Color, Warm Assessment and Plan (1) Acute cholangitis Status: Acute - Assessment and Plan (Free Text) Assessment: 61 y/o male with no PMH came in because of abdominal pain mainly on the epigastric and RUQ , accompanied by N/V, and fever. Labs showed Leukocytosis and abn LFTs. Pt started on IV antibiotics MRCP showed acute cholecystitis. No evidence of choledocholithiasis or biliary obstruction. GI and Surgery consulted. Patient underwent ERCP on 05/28 and pus was noted in CBD that was cleared out. 05/30: underwent Laparascopic Cholecystectomy 06/02: noted elevated LFTs, repeat CT showed R portal vein thrombosis and gall bladder fossa edema 06/03: heparin drip initiated, discussed with GI and Hematology. HIDA scan showed no leak At present doing better, tolerating PO intake but WBC still elevated 13k Cultures from biliary secretions positive for Klebsiella Pneumonia 1. Acute Cholangitis/Cholecystitis s/p Lap Chantal and ERCP s/p ERCP with pus removal and s/p lap cholecystectomy Biliary cultures positive for Klebsiella pneumonia On Zosyn IV since admission but WBC still elevated ID consulted- Dr Robbins, Abx changed to Meropenem and Flagyl HIDA scan showed no biliary leak tolerating PO intake Continue to monitor LFTs and bilirubin Surgery on board following Continue pain management Promote ambulation incentive spirometry Q1 h On d/c abx will be changed to PO Cipro and Flagyl x 7 more days as per ID rec 2. R Portal Vein Thrombosis Thrombocytosis with platelet over 1000 CT abdomen showed portal vein thrombosis , most likely septic emboli Hematology consulted On Heparin drip and Coumadin PO INR 1.6 today. Will give 6 mg Coumadin today Repeat PT/INR in AM will d/c pt home on Po Coumadin in am if INR is therapeutic discussed thrombocytosis with Dr Goel - sonia that likely reactive , due to infection, does NOT recommend ASA, pt on Coumadin 3. DVt prophylaxis on Heparin drip
[2017-06-08] MEDS: Meropenem 1 GM in Sodium Chloride 0.9% 100 ML IVPB SCH ×2 (00:36→10:18)
[2017-06-08] MEDS: metroNIDAZOLE 500mg/100ml NS 100 ML IVPB SCH ×2 (00:37→09:17)
[2017-06-08 01:26] VITALS: RESP 19
[2017-06-08 08:03] LABS: HEMOGLOBIN 12.9 g/dL (12.0-18.0); MEAN CELL VOLUME 92.1 fl (80.0-94.0); MEAN CORPUSCULAR HEMOGLOBIN 31.6 pg (27.0-31.0); MEAN CORPUSCULAR HGB CONC 34.3 g/dL (33.0-37.0); RBC 4.07 Mil/uL (4.40-5.90); RED CELL DISTRIBUTION WIDTH 14.6 % (11.5-14.5); WHITE BLOOD COUNT 11.9 K/uL (4.8-10.8)
[2017-06-08 08:24] VITALS: BP 108/73; PULSE 72; TEMP 98; O2SAT 96
[2017-06-08] MEDS: Heparin 25,000units in D5W 25,000 UNITS/250 ML BAG IV SCH (08:25)
[2017-06-08 08:26] LABS: INR 1.9 (0.9-1.2); PROTHROMBIN TIME 21.8 Seconds (9.8-13.1)
--- NOTE | 2017-06-08 08:27 | CP.PCM.PN ---
Subjective - Date & Time of Evaluation Date of Evaluation: 06/08/17 Time of Evaluation: 08:25 - Subjective Subjective: General Surgery Progress Note for Dr. Cheng This 61M was seen and examined this AM at bedside he reports no acute events overnight. He reports that his pain is improved he denies any fevers chills chest pain nausea vomiting or diarrhea. He repoirts he is tolerating diet, drinking ambulating, passing gas moving his bowels and voiding without any issues. Objective - Vital Signs/Intake and Output Vital Signs (last 24 hours): Temp Pulse Resp BP Pulse Ox 98.0 F 72 19 108/73 96 06/08/17 08:24 06/08/17 08:24 06/08/17 08:24 06/08/17 08:24 06/08/17 08:24 - Medications Medications: Current Medications Acetaminophen (Tylenol 325 Mg Supp) 325 mg FL Q6 PRN PRN Reason: Fever >100.4 F Last Admin: 05/28/17 00:52 Dose: 325 mg Meropenem 1 gm/ Sodium (Chloride) 100 mls @ 100 mls/hr IVPB Q8 TRACI PRN Reason: Protocol Last Admin: 06/08/17 00:36 Dose: 100 mls/hr Metronidazole (Flagyl 500mg/100ml Ns) 100 mls @ 100 mls/hr IVPB Q8 TRACI PRN Reason: Protocol Last Admin: 06/08/17 00:37 Dose: 100 mls/hr Heparin Sodium/Dextrose (Heparin 25,000 Units/250ml In D5w) 25,000 units in 250 mls @ 13 mls/hr IV .[id number] TRACI PRN Reason: Protocol Last Admin: 06/07/17 11:40 Dose: 13 mls/hr Ondansetron HCl (Zofran Inj) 4 mg IVP Q4 PRN PRN Reason: Nausea/Vomiting - Labs Labs: 06/08/17 06:00 06/07/17 06:45 PT 18.4 Seconds (9.8-13.1) H 06/07/17 08:00 INR 1.6 (0.9-1.2) H 06/07/17 08:00 APTT 53.3 Seconds (25.6-37.1) H 06/07/17 11:34 - Constitutional Appears: Non-toxic, No Acute Distress - Head Exam Head Exam: ATRAUMATIC, NORMOCEPHALIC - Eye Exam Eye Exam: EOMI - ENT Exam ENT Exam: Mucous Membranes Moist - Respiratory Exam Respiratory Exam: NORMAL BREATHING PATTERN - Cardiovascular Exam Cardiovascular Exam: +S1, +S2 - GI/Abdominal Exam GI & Abdominal Exam: Soft. absent: Distended, Firm, Guarding, Rigid, Tenderness - Neurological Exam Neurological Exam: Alert, Awake - Psychiatric Exam Psychiatric exam: Normal Affect, Normal Mood - Skin Skin Exam: Dry Assessment and Plan - Assessment and Plan (Free Text) Assessment: 61F s/p laparoscopic cholecystectomy POD#9 - Antibiotics as per ID - Continue diet - Pain management - D/W Dr. Prosper Viera PGY2
[2017-06-08 08:28] LABS: PARTIAL THROMBOPLASTIN TIME 90.2 Seconds (25.6-37.1)
[2017-06-08 09:41] LABS: ALB/GLOB RATIO 0.9 (1.0-2.1); ALBUMIN 3.9 g/dL (3.5-5.0); ALT/SGPT 107 U/L (21-72); AST/SGOT 96 U/L (17-59); BLOOD UREA NITROGEN 15 mg/dl (9-20); CALCIUM 9.4 mg/dL (8.4-10.2); GFR AFRICAN-AMERICAN > 60; GFR NON-AFRICAN AMERICAN > 60
--- NOTE | 2017-06-08 11:40 | CP.PCM.DIS ---
Provider - Provider Date of Admission: 05/26/17 19:42 Attending physician: Judah Isaac Primary care physician: none Consults: GI consult surgery consult Hematology consult Time Spent in preparation of Discharge (in minutes): 15 Hospital Course - Lab Results Lab Results: Micro Results 06/05/17 18:30 Blood-Venous Blood Culture - Preliminary NO GROWTH AFTER 48 HOURS 06/05/17 19:00 Blood-Venous Blood Culture - Preliminary NO GROWTH AFTER 48 HOURS 05/30/17 08:58 Naris MRSA Culture (Admit) - Final MRSA NOT DETECTED 05/30/17 13:08 Gallbladder Gram Stain - Final 05/30/17 13:08 Gallbladder Wound Culture - Final Klebsiella Pneumoniae Ssp Pneu 05/26/17 18:15 Blood-Venous Blood Culture - Final NO GROWTH AFTER 5 DAYS 05/26/17 18:15 Blood-Venous Gram Stain - Final TEST NOT PERFORMED 05/26/17 18:15 Blood-Venous Blood Culture - Final NO GROWTH AFTER 5 DAYS 05/26/17 18:15 Blood-Venous Gram Stain - Final TEST NOT PERFORMED 05/28/17 11:50 Nose MRSA Culture (Admit) - Final MRSA NOT DETECTED 05/26/17 17:25 Urine,Clean Catch Urine Culture - Final No Growth (<1,000 CFU/ML) Most Recent Lab Values WBC 11.9 K/uL (4.8-10.8) H 06/08/17 06:00 RBC 4.07 Mil/uL (4.40-5.90) L 06/08/17 06:00 Hgb 12.9 g/dL (12.0-18.0) 06/08/17 06:00 Hct 37.5 % (35.0-51.0) 06/08/17 06:00 MCV 92.1 fl (80.0-94.0) 06/08/17 06:00 MCH 31.6 pg (27.0-31.0) H 06/08/17 06:00 MCHC 34.3 g/dL (33.0-37.0) 06/08/17 06:00 RDW 14.6 % (11.5-14.5) H 06/08/17 06:00 Plt Count 1270 K/uL (130-400) H* 06/08/17 06:00 MPV 7.1 fl (7.2-11.7) L 06/04/17 04:20 Neut % (Auto) 65.4 % (50.0-75.0) 06/04/17 04:20 Lymph % (Auto) 18.5 % (20.0-40.0) L 06/04/17 04:20 [place] % (Auto) 6.3 % (0.0-10.0) 06/04/17 04:20 Eos % (Auto) 8.8 % (0.0-4.0) H 06/04/17 04:20 Baso % (Auto) 1.0 % (0.0-2.0) 06/04/17 04:20 Neut # (Auto) 9.2 K/uL (1.8-7.0) H 06/04/17 04:20 Lymph # (Auto) 2.6 K/uL (1.0-4.3) 06/04/17 04:20 [place] # (Auto) 0.9 K/uL (0.0-0.8) H 06/04/17 04:20 Eos # (Auto) 1.2 K/uL (0.0-0.7) H 06/04/17 04:20 Baso # (Auto) 0.1 K/uL (0.0-0.2) 06/04/17 04:20 Neutrophils % (Manual) 87 % (42-75) H 05/30/17 04:45 Band Neutrophils % 3 % (0-2) H 05/30/17 04:45 Lymphocytes % (Manual) 8 % (20-50) L 05/30/17 04:45 Reactive Lymphs % 3 % (0-0) H 05/26/17 17:52 Monocytes % (Manual) 2 % (0-10) 05/30/17 04:45 Toxic Granulation Present 05/30/17 04:45 Platelet Estimate Normal (NORMAL) 05/30/17 04:45 Hypochromasia (manual) Slight 05/30/17 04:45 Macrocytosis (manual) Slight 05/26/17 17:52 Tear Drop Cells Slight 05/30/17 04:45 Ovalocytes Slight 05/30/17 04:45 Schistocytes Slight 05/30/17 04:45 PT 21.8 Seconds (9.8-13.1) H 06/08/17 06:00 INR 1.9 (0.9-1.2) H 06/08/17 06:00 APTT 90.2 Seconds (25.6-37.1) H D 06/08/17 06:00 pO2 23 mm/Hg (30-55) L 05/26/17 19:00 VBG pH 7.32 (7.32-7.43) 05/26/17 19:00 VBG pCO2 44 mmHg (40-60) 05/26/17 19:00 VBG HCO3 20.5 mmol/L 05/26/17 19:00 VBG Total CO2 24.1 mmol/L (22-28) 05/26/17 19:00 VBG O2 Sat (Calc) 49.0 % (40-65) 05/26/17 19:00 VBG Base Excess -3.5 mmol/L (0.0-2.0) L 05/26/17 19:00 VBG Potassium 3.5 mmol/L (3.6-5.2) L 05/26/17 19:00 Sodium 133.0 mmol/L (132-148) 05/26/17 19:00 Chloride 102.0 mmol/L (98-107) 05/26/17 19:00 Glucose 131 mg/dL (75-110) H 05/26/17 19:00 Lactate 1.9 mmol/L (0.7-2.1) 05/26/17 19:00 FiO2 21.0 % 05/26/17 19:00 Sodium 138 mmol/l (132-148) 06/08/17 06:00 Potassium 4.2 MMOL/L (3.6-5.0) 06/08/17 06:00 Chloride 98 mmol/L (98-107) 06/08/17 06:00 Carbon Dioxide 24 mmol/L (22-30) 06/08/17 06:00 Anion Gap 20 (10-20) 06/08/17 06:00 BUN 15 mg/dl (9-20) 06/08/17 06:00 Creatinine 0.6 mg/dl (0.8-1.5) L 06/08/17 06:00 Est GFR ( Amer) > 60 06/08/17 06:00 Est GFR (Non-Af Amer) > 60 06/08/17 06:00 POC Glucose (mg/dL) 102 mg/dL (65-110) 05/28/17 07:54 Random Glucose 100 mg/dL (75-110) 06/08/17 06:00 Calcium 9.4 mg/dL (8.4-10.2) 06/08/17 06:00 Phosphorus 2.2 mg/dl (2.5-4.5) L 05/29/17 04:35 Magnesium 2.7 MG/DL (1.6-2.3) H 05/29/17 04:35 Total Bilirubin 0.6 mg/dl (0.2-1.3) 06/08/17 06:00 AST 96 U/L (17-59) H D 06/08/17 06:00 ALT 107 U/L (21-72) H 06/08/17 06:00 Alkaline Phosphatase 419 U/L (38-126) H 06/08/17 06:00 Troponin I 0.0150 ng/mL (0.00-0.120) 05/26/17 17:52 Total Protein 8.4 G/DL (6.3-8.2) H 06/08/17 06:00 Albumin 3.9 g/dL (3.5-5.0) 06/08/17 06:00 Globulin 4.5 gm/dL (2.2-3.9) H 06/08/17 06:00 Albumin/Globulin Ratio 0.9 (1.0-2.1) L 06/08/17 06:00 Lipase 75 U/L (23-300) 05/26/17 17:52 Venous Blood Potassium 3.5 mmol/L (3.6-5.2) L 05/26/17 19:00 Urine Color Yellow (YELLOW) 05/26/17 17:25 Urine Clarity Slighty-cloudy (Clear) 05/26/17 17:25 Urine pH 6.0 (5.0-8.0) 05/26/17 17:25 Ur Specific [place] 1.031 (1.003-1.030) H 05/26/17 17:25 Urine Protein 30 mg/dL (NEGATIVE) 05/26/17 17:25 Urine Glucose (UA) 50 mg/dL (Normal) 05/26/17 17:25 Urine Ketones Negative mg/dL (NEGATIVE) 05/26/17 17:25 Urine Blood Small (NEGATIVE) 05/26/17 17:25 Urine Nitrate Negative (NEGATIVE) 05/26/17 17:25 Urine Bilirubin Negative (NEGATIVE) 05/26/17 17:25 Urine Urobilinogen 0.2-1.0 mg/dL (0.2-1.0) 05/26/17 17:25 Ur Leukocyte Esterase Neg [place]/uL (Negative) 05/26/17 17:25 Urine RBC (Auto) 5 /hpf (0-3) H 05/26/17 17:25 Urine Microscopic WBC 1 /hpf (0-5) 05/26/17 17:25 Amorphous Sediment Rare /ul (<OCC) H 05/26/17 17:25 Hepatitis A IgM Ab Negative (NEGATIVE) 05/27/17 19:42 Hep Bs Antigen Negative (NEGATIVE) 05/27/17 19:42 Hep B Core IgM Ab Negative (NEGATIVE) 05/27/17 19:42 Hepatitis C Antibody Negative (NEGATIVE) 05/27/17 19:42 - Hospital Course Hospital Course: 61 y/o male with no PMH came in because of abdominal pain mainly on the epigastric and RUQ , accompanied by N/V, and fever. Labs showed Leukocytosis and abn LFTs. Pt started on IV antibiotics MRCP showed acute cholecystitis. No evidence of choledocholithiasis or biliary obstruction. GI and Surgery consulted. Patient underwent ERCP on 05/28 and pus was noted in CBD that was cleared out. 05/30: underwent Laparascopic Cholecystectomy 06/02: noted elevated LFTs, repeat CT showed R portal vein thrombosis and gall bladder fossa edema . H 06/03: heparin drip initiated, discussed with GI and Hematology. HIDA scan showed no leak . Hematology was consulted At present doing better, tolerating PO intake but WBC trending down to 11 K Cultures from biliary secretions positive for Klebsiella Pneumonia, pansensitive At present hemodynamically stable, afebrrile, tolerating po intake, ambulating , voiding and having regular BM, denies abdominal pain Cleared by surgery,GI and ID for discharge INr today 1.9 on 5 mg po Coumadin Will discharge patient home on Cipro 500 mg po bid for 7 days and Flgyal 500 mg po TID for 7 days Will d/c on Coumadin 4 mg po daily ( only 10 tablets given ) with repeat PT/INr in 2 days 06/10/17 Initial PT./ INr to be monitored by hospitalist supervisor money room on Saturday ( 06/10) than patient will need to follow up at [facility] 1. Acute Cholangitis/Cholecystitis s/p Lap Chantal and ERCP s/p ERCP with pus removal and s/p lap cholecystectomy Biliary cultures positive for Klebsiella pneumonia received Zosyn IV since admission but since WBC remained elevated changed to Meropenem and Flagyl as per ID HIDA scan showed no biliary leak tolerating PO intake LFT-s still slightly elevated Cleared by GI and surgery for d/c Will d/c on PO Cipro and Flagyl x 7 more days as per ID rec 2. R Portal Vein Thrombosis Thrombocytosis with platelet over 1000 CT abdomen showed portal vein thrombosis , most likely septic emboli Hematology consulted received Heparin drip and Coumadin PO INR 1.9 today. Will give 5 mg Coumadin today Repeat PT/INR in 2 DAYS 06/10 will d/c pt home on 4 MG OF Po Coumadin discussed thrombocytosis with Dr Goel - sonia that likely reactive , due to infection, does NOT recommend ASA, pt on Coumadin 3. DVt prophylaxis on Heparin drip Discharge Exam - Head Exam Head Exam: ATRAUMATIC, NORMOCEPHALIC - Eye Exam Eye Exam: EOMI, Normal appearance, PERRL Pupil Exam: NORMAL ACCOMODATION - ENT Exam ENT Exam: Mucous Membranes Moist, Normal Exam - Neck Exam Neck exam: Full Rom, Normal Inspection - Respiratory Exam Respiratory Exam: Clear to PA & Lateral, NORMAL BREATHING PATTERN. absent: Rales, Rhonchi, Wheezes - Cardiovascular Exam Cardiovascular Exam: REGULAR RHYTHM, RRR, +S1, +S2. absent: JVD - GI/Abdominal Exam GI & Abdominal Exam: Normal Bowel Sounds, Soft. absent: Distended, Guarding, Rebound, Tenderness - Rectal Exam Rectal Exam: Deferred - Extremities Exam Extremities exam: normal capillary refill, normal inspection, pedal pulses present - Back Exam Back exam: NORMAL INSPECTION - Neurological Exam Neurological exam: Alert, CN II-XII Intact, Oriented x3, Reflexes Normal - Psychiatric Exam Psychiatric exam: Normal Affect, Normal Mood - Skin Skin Exam: Dry, Intact, Normal Color, Warm Discharge Plan - Discharge Medications Prescriptions: Ciprofloxacin HCl [Cipro] 500 mg PO BID #14 tab Metronidazole [Flagyl] 500 mg PO TID #21 tablet Warfarin [Coumadin] 3 mg PO DAILY #10 tab - Follow Up Plan Condition: STABLE Disposition: HOME/ ROUTINE Patient education suggested?: Yes Instructions: Cholecystectomy, Laparoscopic Surgery, Deep Venous Thrombosis (DC ) Additional Instructions: follow up at [facility]. clinic will call you with appointment date Referrals: [facility] [place] [Outside] Catherine Damon MD [Medical Doctor] - Washington Cheng MD [Staff Provider] -
== END 2017-06-08 14:44 | disposition home or self-care (01) | DRG 417 ==
LOC: H.ER 16:26 → H.ERHOLD 19:42 → H.MEDSURG1 23:15 → H.ICU/CCU 05-28 10:06 → H.TEL 05-30 14:38 → H.MEDSURG1 06-06 18:42
PROVIDERS: ADMIT Internal Medicine; ATTEND Internal Medicine
PROC: 0FC98ZZ Extirpation of Matter from Common Bile Duct, Via Natural or Artificial Opening Endoscopic (ICD-10-PCS; 2017-05-28)
PROC: 0FC58ZZ Extirpation of Matter from Right Hepatic Duct, Via Natural or Artificial Opening Endoscopic (ICD-10-PCS; 2017-05-28)
PROC: 0FC68ZZ Extirpation of Matter from Left Hepatic Duct, Via Natural or Artificial Opening Endoscopic (ICD-10-PCS; 2017-05-28)
PROC: 0F798ZZ Dilation of Common Bile Duct, Via Natural or Artificial Opening Endoscopic (ICD-10-PCS; 2017-05-28)
PROC: 0F758ZZ Dilation of Right Hepatic Duct, Via Natural or Artificial Opening Endoscopic (ICD-10-PCS; 2017-05-28)
PROC: 0F768ZZ Dilation of Left Hepatic Duct, Via Natural or Artificial Opening Endoscopic (ICD-10-PCS; 2017-05-28)
PROC: BF10YZZ Fluoroscopy of Bile Ducts using Other Contrast (ICD-10-PCS; 2017-05-28)
PROC: 0FT44ZZ Resection of Gallbladder, Percutaneous Endoscopic Approach (ICD-10-PCS; principal; 2017-05-30 10:00)
DX: K80.12 Calculus of gallbladder with acute and chronic cholecystitis without obstruction (principal); I81 Portal vein thrombosis; D68.9 Coagulation defect, unspecified; I76 Septic arterial embolism; K83.0 Cholangitis; D64.9 Anemia, unspecified; K76.0 Fatty (change of) liver, not elsewhere classified; B96.1 Klebsiella pneumoniae [K. pneumoniae] as the cause of diseases classified elsewhere; K82.8 Other specified diseases of gallbladder; Z79.01 Long term (current) use of anticoagulants; Z90.49 Acquired absence of other specified parts of digestive tract; I95.9 Hypotension, unspecified; R00.0 Tachycardia, unspecified; R16.0 Hepatomegaly, not elsewhere classified; R79.89 Other specified abnormal findings of blood chemistry

== ENCOUNTER 2017-06-28 12:46 | Emergency (ER) | payer SELFPAY ==
[2017-06-28 14:59] LABS: URINE BILIRUBIN NEGATIVE (NEGATIVE); URINE BLOOD MODERATE (NEGATIVE); URINE CLARITY SLIGHTY-CLOUDY (Clear); URINE COLOR YELLOW (YELLOW); URINE GLUCOSE (UA) NEG (Normal); URINE LEUKOCYTE ESTERASE NEG Leu/uL (Negative); URINE PROTEIN NEGATIVE (NEGATIVE); URINE UROBILINOGEN 0.2-1.0 mg/dL (0.2-1.0)
[2017-06-28 15:00] LABS: BASO # 0.1 K/uL (0.0-0.2); BASO % 0.8 % (0.0-2.0); EOS # 1.1 K/uL (0.0-0.7); HEMOGLOBIN 13.3 g/dL (12.0-18.0); LYMPH # 3.3 K/uL (1.0-4.3); MEAN CELL VOLUME 92.3 fl (80.0-94.0); MEAN CORPUSCULAR HEMOGLOBIN 30.8 pg (27.0-31.0); MEAN CORPUSCULAR HGB CONC 33.4 g/dL (33.0-37.0); MEAN PLATELET VOLUME 7.5 fl (7.2-11.7); MONO # 0.7 K/uL (0.0-0.8); MONO % 6.7 % (0.0-10.0); NEUT # 4.7 K/uL (1.8-7.0); NEUT % 47.5 % (50.0-75.0); NRBC % 0.1 % (0.0-0.0); RBC 4.33 Mil/uL (4.40-5.90); RED CELL DISTRIBUTION WIDTH 14.6 % (11.5-14.5); WHITE BLOOD COUNT 9.8 K/uL (4.8-10.8)
[2017-06-28 15:07] LABS: ALBUMIN 4.4 g/dL (3.5-5.0); ALT/SGPT 63 U/L (21-72); AST/SGOT 56 U/L (17-59); BLOOD UREA NITROGEN 12 mg/dl (9-20); CALCIUM 9.3 mg/dL (8.4-10.2); GFR AFRICAN-AMERICAN > 60; GFR NON-AFRICAN AMERICAN > 60
[2017-06-28] MEDS ORDERED: Sodium Chloride 0.9% 100 ML ONE (15:34)
[2017-06-28] MEDS ORDERED: Iohexol 300 100 ML IJ ONE (15:34)
--- NOTE | 2017-06-28 16:29 | ED PDOC ---
HPI: Back Time Seen by Provider: 06/28/17 14:27 Chief Complaint (Nursing): Back Pain Chief Complaint (Provider): Back Pain History Per: Patient History/Exam Limitations: language barrier (car construction superintendent Sima) Onset/Duration Of Symptoms: Days Current Symptoms Are (Timing): Still Present Additional Complaint(s): Maxim Allen is a 61 year old male with no past medical history of chronic illnesses, who is presenting to the ER with complaints of abdominal pain and associated back pain, s/p cholecystectomy. Patient was sent to ED from Clinic as symptoms progressively worsened over the last few days. He also states that he experienced dark urine but denies any nausea, vomiting, diarrhea , or fevers. Patient offers no other medical complaints at this time. PMD: Doctor, Elizabeth Past Medical History Reviewed: Historical Data, Nursing Documentation, Vital Signs Vital Signs: Last Vital Signs Temp 98.0 F 06/28/17 13:16 Pulse 81 06/28/17 13:16 Resp 18 06/28/17 13:16 BP 126/78 06/28/17 13:16 Pulse Ox 99 06/28/17 13:16 - Medical History PMH: No Chronic Diseases Denies: Chronic Kidney Disease - Surgical History Surgical History: Cholecystectomy - Family History Family History: States: Unknown Family Hx - Social History Drugs: Denies - Immunization History Hx Tetanus Toxoid Vaccination: No Hx Influenza Vaccination: No Hx Pneumococcal Vaccination: No - Home Medications Home Medications: Ambulatory Orders Medication Instructions Recorded Ciprofloxacin HCl [Cipro] 500 mg PO BID #14 tab 06/08/17 Metronidazole [Flagyl] 500 mg PO TID #21 tablet 06/08/17 Warfarin [Coumadin] 5 mg PO 1800 #10 tab 06/15/17 - Allergies Allergies/Adverse Reactions: Allergies Allergy/AdvReac Type Severity Reaction Status Date / Time No Known Allergies Allergy Verified 05/26/17 17:01 Review of Systems ROS Statement: Except As Marked, All Systems Reviewed And Found Negative Constitutional: Negative for: Fever Gastrointestinal: Positive for: Abdominal Pain. Negative for: Nausea, Vomiting , Diarrhea Genitourinary Male: Positive for: Other (dark urine) Musculoskeletal: Positive for: Back Pain Physical Exam - Reviewed Nursing Documentation Reviewed: Yes Vital Signs Reviewed: Yes - Physical Exam Appears: Positive for: Non-toxic, No Acute Distress Head Exam: Positive for: ATRAUMATIC, NORMAL INSPECTION, NORMOCEPHALIC Skin: Positive for: Normal Color, Warm, DRY Eye Exam: Positive for: Normal appearance. Negative for: Scleral icterus Neck: Positive for: Normal, Painless ROM Cardiovascular/Chest: Positive for: Regular Rate, Rhythm Respiratory: Positive for: Normal Breath Sounds. Negative for: Respiratory Distress Gastrointestinal/Abdominal: Positive for: Tenderness (mild epigastric tenderness ), Other (surgical wounds healed) Back: Positive for: R CVA Tenderness (mild) Extremity: Positive for: Normal ROM. Negative for: Deformity, Swelling Neurologic/Psych: Positive for: Alert, Oriented. Negative for: Motor/Sensory Deficits - Laboratory Results Result Diagrams: 06/28/17 14:40 06/28/17 14:40 - ECG O2 Sat by Pulse Oximetry: 99 (RA) Pulse Ox Interpretation: Normal Medical Decision Making Medical Decision Making: Time: 14:40 Impression: Abdominal Pain s/p Cholescystectomy Rule out: Retained Stone versus pyelonephritis versus less likely obstruction or post surgical complications Plan: --CT Abd/Pelvis --CMP --CBC --Urine Culture --Urinalysis --US Abdomen 15:30 Patient signed out to Dr. Steiner pending ER workup and evaluation. Scribe Attestation: Documented by Analisa Cortés, acting as a scribe for Pritesh Lyles DO. Provider Scribe Attestation: All medical record entries made by the Scribe were at my direction and personally dictated by me. I have reviewed the chart and agree that the record accurately reflects my personal performance of the history, physical exam, medical decision making, and the department course for this patient. I have also personally directed, reviewed, and agree with the discharge instructions and disposition. Disposition - Disposition
--- NOTE | 2017-06-28 16:39 | ED PDOC ---
- Laboratory Results Result Diagrams: 06/28/17 14:40 06/28/17 14:40 - ECG O2 Sat by Pulse Oximetry: 99 (RA) Pulse Ox Interpretation: Normal Medical Decision Making Medical Decision Making: Time: 15:30 Patient signed out to me by Dr. Lyles pending ED workup, reevaluation, and disposition. Labs demonstrate hematuria, otherwise no emergently significant lab abnormalities Accession No. : [id number] Patient Name / ID : PETRONA BAILEY / [id number] Exam Date : 06/28/2017 15:28:25 ( Approved ) Study Comment : Sex / Age : M / 61Y Creator : Nilton Painting MD Dictator : Nilton Painting MD Car Construction Superintendent : Order Management Specialist : Nilton Painting MD Approver2 : Report Date : 06/28/2017 16:55:29 My Comment : HISTORY: RUQ examine CBD for dilatation s/p cholecystectomy COMPARISON: 0118 TECHNIQUE: Sonographic evaluation of the right upper quadrant of the abdomen. FINDINGS: LIVER: Measures 15.4 cm in length. Patent portal vein. Portal venous flow: Hepatopetal. Unremarkable echogenicity of the liver parenchyma. No mass. No intrahepatic bile duct dilatation. GALLBLADDER: Status post cholecystectomy. No abnormality is seen in the gallbladder fossa. COMMON BILE DUCT: Measures 6.8 mm. No stones. No dilatation. PANCREAS: Unremarkable as visualized. No mass. No ductal dilatation. RIGHT KIDNEY: Measures 9.7 x 5.3 x 4.8 cm in length. Normal echogenicity. No calculus, mass, or hydronephrosis. AORTA: No aneurysmal dilatation. IVC: Unremarkable. OTHER FINDINGS: None . IMPRESSION: Status post cholecystectomy. No acute/ significant findings. Accession No. : [id number] Patient Name / ID : PETRONA BAILEY / [id number] Exam Date : 06/28/2017 15:44:24 ( Approved ) Study Comment : Sex / Age : M / 61Y Creator : Sarkis Gregg MD Dictator : Sarkis Gregg MD Car Construction Superintendent : Order Management Specialist : Sarkis Gregg MD Approver2 : Report Date : 06/28/2017 16:52:12 My Comment : PROCEDURE: CT Abdomen and Pelvis with contrast HISTORY: cholecystectomy, dark urine, back pain, abd pain COMPARISON: None. TECHNIQUE: Contrast dose: Omnipaque 300, 90 cc Radiation dose: Total exam DLP = 362.49 mGy-cm. This CT exam was performed using one or more of the following dose reduction techniques: Automated exposure control, adjustment of the mA and/or kV according to patient size, and/or use of iterative reconstruction technique. FINDINGS: LOWER THORAX: Limited bibasilar fibrosis is reiterated. No infiltrate or pleural effusion bilaterally. LIVER: Differential enhancement pattern again appreciated throughout the liver did related to chronic thrombosis anterior branch right portal vein once again. GALLBLADDER AND BILE DUCTS: Prior cholecystectomy again evident. No significant biliary tree dilatation. PANCREAS: Unremarkable. No gross lesion or ductal dilatation. SPLEEN: Unremarkable. ADRENALS: Unremarkable. No mass. KIDNEYS AND URETERS: Unremarkable. No hydronephrosis. No solid mass. VASCULATURE: Unremarkable. No aortic aneurysm. BOWEL: Scattered colonic diverticular changes without diverticulitis both right and left wilian colon segments. No bowel obstruction. Lack of oral contrast limits evaluation of bowel. Moderate retained fecal material is appreciated at the ascending through transverse colon segments with less throughout the remainder of the large bowel. APPENDIX: Normal appendix. PERITONEUM: Unremarkable. No free fluid. Prior trace free air now resolved. LYMPH NODES: Unremarkable. No enlarged lymph nodes. BLADDER: Unremarkable. REPRODUCTIVE: Reiterated enlarged prostate gland. BONES: No acute fracture. OTHER FINDINGS: None. IMPRESSION: 1. Genitourinary tract remarkable for enlarged prostate gland once again. The bilateral kidneys appear normal in overall enhancement but no obstructive uropathy or radiodense urolithiasis related. No perinephric reaction or fluid collection. Urinary bladder appears unremarkable. 2. Chronic thrombosis anterior segment portal vein with differential hepatic enhancement reiterated. 3. Prior cholecystectomy. Resolution of prior trace free intrarenal gas postoperatively identified previously. According to pt, he ran out of coumadin to treat his portal vein thrombosis 2 days ago. INR today 2. Will give dose today and new prescription. SHIRA Jiang [facility] resident who came down to see pt. Pt to follow up at clinic in 1 week for repeat INR and reevaluation. Scribe Attestation: Documented by Analisa Cortés, acting as a scribe for Priscilla Gtz MD. Provider Scribe Attestation: All medical record entries made by the Scribe were at my direction and personally dictated by me. I have reviewed the chart and agree that the record accurately reflects my personal performance of the history, physical exam, medical decision making, and the department course for this patient. I have also personally directed, reviewed, and agree with the discharge instructions and disposition. Disposition - Clinical Impression Clinical Impression: Portal vein thrombosis - POA Present On Arrival: None - Disposition Referrals: [facility] [Outside] - 07/05/17 Disposition: Routine/Home Disposition Time: 18:30 Condition: STABLE Additional Instructions: REPITA NELSON ANALISIS DE [facility] Prescriptions: Warfarin [Coumadin] 5 mg PO 1800 #10 tab Instructions: Warfarin, Going Home on Blood Thinners , Blood in the Urine ( Hematuria) in Adults Print Language: BELARUSIAN
--- NOTE | 2017-06-28 16:53 | CT ---
PROCEDURE: CT Abdomen and Pelvis with contrast HISTORY: cholecystectomy, dark urine, back pain, abd pain COMPARISON: None. TECHNIQUE: Contrast dose: Omnipaque 300, 90 cc Radiation dose: Total exam DLP = 362.49 mGy-cm. This CT exam was performed using one or more of the following dose reduction techniques: Automated exposure control, adjustment of the mA and/or kV according to patient size, and/or use of iterative reconstruction technique. FINDINGS: LOWER THORAX: Limited bibasilar fibrosis is reiterated. No infiltrate or pleural effusion bilaterally. LIVER: Differential enhancement pattern again appreciated throughout the liver did related to chronic thrombosis anterior branch right portal vein once again. GALLBLADDER AND BILE DUCTS: Prior cholecystectomy again evident. No significant biliary tree dilatation. PANCREAS: Unremarkable. No gross lesion or ductal dilatation. SPLEEN: Unremarkable. ADRENALS: Unremarkable. No mass. KIDNEYS AND URETERS: Unremarkable. No hydronephrosis. No solid mass. VASCULATURE: Unremarkable. No aortic aneurysm. BOWEL: Scattered colonic diverticular changes without diverticulitis both right and left wilian colon segments. No bowel obstruction. Lack of oral contrast limits evaluation of bowel. Moderate retained fecal material is appreciated at the ascending through transverse colon segments with less throughout the remainder of the large bowel. APPENDIX: Normal appendix. PERITONEUM: Unremarkable. No free fluid. Prior trace free air now resolved. LYMPH NODES: Unremarkable. No enlarged lymph nodes. BLADDER: Unremarkable. REPRODUCTIVE: Reiterated enlarged prostate gland. BONES: No acute fracture. OTHER FINDINGS: None. IMPRESSION: 1. Genitourinary tract remarkable for enlarged prostate gland once again. The bilateral kidneys appear normal in overall enhancement but no obstructive uropathy or radiodense urolithiasis related. No perinephric reaction or fluid collection. Urinary bladder appears unremarkable. 2. Chronic thrombosis anterior segment portal vein with differential hepatic enhancement reiterated. 3. Prior cholecystectomy. Resolution of prior trace free intrarenal gas postoperatively identified previously.
--- NOTE | 2017-06-28 16:56 | US ---
HISTORY: RUQ examine CBD for dilatation s/p cholecystectomy COMPARISON: 0118 TECHNIQUE: Sonographic evaluation of the right upper quadrant of the abdomen. FINDINGS: LIVER: Measures 15.4 cm in length. Patent portal vein. Portal venous flow: Hepatopetal. Unremarkable echogenicity of the liver parenchyma. No mass. No intrahepatic bile duct dilatation. GALLBLADDER: Status post cholecystectomy. No abnormality is seen in the gallbladder fossa. COMMON BILE DUCT: Measures 6.8 mm. No stones. No dilatation. PANCREAS: Unremarkable as visualized. No mass. No ductal dilatation. RIGHT KIDNEY: Measures 9.7 x 5.3 x 4.8 cm in length. Normal echogenicity. No calculus, mass, or hydronephrosis. AORTA: No aneurysmal dilatation. IVC: Unremarkable. OTHER FINDINGS: None . IMPRESSION: Status post cholecystectomy. No acute/ significant findings.
[2017-06-28 18:15] LABS: PARTIAL THROMBOPLASTIN TIME 47.4 Seconds (25.6-37.1); PROTHROMBIN TIME 22.7 Seconds (9.8-13.1)
[2017-06-28 19:33] VITALS: BP 109/64; PULSE 64; RESP 16; TEMP 97.3; O2SAT 98
== END 2017-06-28 20:07 | disposition home or self-care (01) ==
LOC: H.ER 12:46
DX: I81 Portal vein thrombosis (principal); N40.0 Benign prostatic hyperplasia without lower urinary tract symptoms; Z79.01 Long term (current) use of anticoagulants; Z90.49 Acquired absence of other specified parts of digestive tract
CPT/HCPCS: 74177; 76705; 80053; 81003; 85025; 85610; 85730; 87086; 99282; Q9967